=== PATIENT | male | born 1955 | race African-American/Black ===

== ENCOUNTER 2016-02-25 14:56 | Inpatient (IN) | payer OTHER ==
[2016-02-25 15:38] VITALS: BMI 25.0
--- NOTE | 2016-02-25 17:59 | HP ---
COWS - Scale Resting Pulse: 0= [place] 80 or Below Sweatin= Chills/Flushing Restless Observation: 3= Extraneous Movement Pupil Size: 0= Normal to Room Light Bone or Joint Aches: 2= Severe Diffuse Aches Runny Nose/ Eye Tearin= Nasal Congestion GI Upset > 30mins: 2= Nausea/Diarrhea Tremor Observation: 2= Slight Tremor Visible Yawning Observation: 0= None Anxiety or Irritability: 2=Irritable/Anxious Goose Flesh Skin: 3=Piloerection COWS Score: 16 CIWA Score - CIWA Score Nausea/Vomitin-Mild Nausea/No Vomiting Muscle Tremors: 4-Moderate,w/Arms Extend Anxiety: 4-Mod. Anxious/Guarded Agitation: 4-Moderately Restless Paroxysmal Sweats: 1-Minimal Palms Moist Orientation: 3-Disoriented Date>2 days Tacttile Disturbances: 0-None Auditory Disturbances: 0-None Visual Disturbances: 0-None Headache: 0-None Present CIWA-Ar Total Score: 17 Admission ROS S - HPI Chief Complaint: withdrawal sx Allergies/Adverse Reactions: Allergies Allergy/AdvReac Type Severity Reaction Status Date / Time No Known Allergies Allergy Verified 02/25/16 17:41 History of Present Illness: 60 years old male with long history of alcohol opiate nicotine dependence, chronic ankles [place] 500 mg po q6h x 7 days 02/24/16, liver of cirhosis since 1986, denies mental illness longest sobriety 13 years is admitted to detox Exam Limitations: No Limitations - Ebola screening Have you traveled outside of the country in the last 21 days: No (N) Have you had contact with anyone from an Ebola affected area: No Have you been sick,other than usual withdrawal symptoms: No Do you have a fever: No - Review of Systems Constitutional: Chills, Loss of Appetite, Changes in sleep, Unintentional Wgt. Loss EENT: reports: No Symptoms Reported Respiratory: reports: Cough Cardiac: reports: Chest Pain (1996 no treatment) GI: reports: Nausea, Poor Appetite, Poor Fluid Intake, Vomiting, Indigestion, Abdominal cramping : reports: No Symptoms Reported Musculoskeletal: reports: Back Pain, Joint Pain, Joint Swelling (ankles), Muscle Pain, Neck Pain Integumentary: reports: Change in Color (right planta), Dryness, Pruritus Neuro: reports: Tremors Endocrine: reports: No Symptoms Reported Hematology: reports: No Symptoms Reported Psychiatric: reports: Judgement Intact Other Systems: Reviewed and Negative Patient History - Patient Medical History Hx Anemia: No Hx Asthma: No Hx Chronic Obstructive Pulmonary Disease (COPD): No Hx Cancer: No Hx Cardiac Disorders: Yes (1996 no treatment) Hx Congestive Heart Failure: No Hx Hypertension: No Hx Hypercholesterolemia: No Hx Pacemaker: No HX Cerebrovascular Accident: No Hx Seizures: No Hx Dementia: No Hx Diabetes: No Hx Gastrointestinal Disorders: Yes (gerd) Hx Liver Disease: Yes (cirrohosis of liver 1986; no treatment) Hx Genitourinary Disorders: No Hx Sexually Transmitted Disorders: No Hx Renal Disease (ESRD): No Hx Thyroid Disease: No Hx Human Immunodeficiency Virus (HIV): No Hx Hepatitis C: Yes Hx Depression: No Hx Suicide Attempt: No (denies) Hx Bipolar Disorder: No Hx Schizophrenia: No - Patient Surgical History Past Surgical History: Yes Hx Neurologic Surgery: No Hx Cataract Extraction: No Hx Cardiac Surgery: No Hx Lung Surgery: No Hx Breast Surgery: No Hx Breast Biopsy: No Hx Abdominal Surgery: No Hx Appendectomy: No Hx Cholecystectomy: No Hx Genitourinary Surgery: No Hx Orthopedic Surgery: No Other Surgical History: tonsilectomy 14 years old , left ingrunal 15 years old Anesthesia Reaction: No - PPD History Previous Implant?: Yes Documented Results: Negative w/proof Implanted On Prior R Admission?: Yes Date: 12/13/15 PPD to be Administered?: No - Smoking Cessation Smoking history: Current every day smoker Have you smoked in the past 12 months: Yes Aproximately how many cigarettes per day: 20 Cigars Per Day: 0 Hx Chewing Tobacco Use: No Initiated information on smoking cessation: Yes 'Breaking Loose' booklet given: 02/25/16 - Substance & Tx. History Hx Alcohol Use: Yes Hx Substance Use: Yes Substance Use Type: Alcohol, Opiates Hx Substance Use Treatment: Yes - Substances Abused Alcohol Route: Oral Frequency: Daily Amount used: LIQUOR- 1 PINT, BEER- 1 SIX PACK Age of first use: 11 Date of Last Use: 02/25/16 Heroin Route: Inhalation Frequency: Daily Amount used: 2 BAGS Age of first use: 35 Date of Last Use: 02/25/16 Family Disease History - Family Disease History Family Disease History: CA: Father, Mother Admission Physical Exam [facility] - Vital Signs Vital Signs: Vital Signs - 24 hr 02/25/16 15:36 Temperature 96.1 F L Pulse Rate 79 Respiratory 18 Rate Blood Pressure 121/66 - Physical General Appearance: Yes: Appropriately Dressed, Mild Distress, Alcohol on Breath , Thin, Tremorous, Irritable, Sweating, Anxious HEENTM: Yes: Hearing grossly Normal, Normal ENT Inspection, Normocephalic, Normal Voice Respiratory: Yes: Chest Non-Tender, Lungs Clear, Normal Breath Sounds, No Respiratory Distress, No Accessory Muscle Use Neck: Yes: Supple, Trachea in good position Breast: Yes: Breasts Symetrical Cardiology: Yes: Regular Rhythm, Regular Rate, S1, S2 Abdominal: Yes: Non Tender, Soft Genitourinary: Yes: Within Normal Limits Back: Yes: Normal Inspection Musculoskeletal: Yes: Gait Steady, Joint swelling (ankles), Muscle Pain (feet) Extremities: Yes: Non-Tender, Tremors, Swelling (lower extremities) Neurological: Yes: Alert, Normal Mood/Affect, Normal Response Integumentary: Yes: Warm, Moist, Pitting Edema (both ankles), Track Thacker (old) Lymphatic: Yes: Within Normal Limits - Diagnostic (1) Alcohol dependence with uncomplicated withdrawal Current Visit: Yes Status: Acute (2) Opioid dependence with withdrawal Current Visit: Yes Status: Acute (3) Arthritis Current Visit: Yes Status: Chronic (4) Nicotine dependence Current Visit: Yes Status: Acute Qualifiers: Nicotine product type: cigarettes Substance use status: uncomplicated Qualified Code(s): F17.210 - Nicotine dependence, cigarettes, uncomplicated (5) Hepatitis C antibody test positive Current Visit: Yes Status: Chronic (6) GERD (gastroesophageal reflux disease) Current Visit: Yes Status: Acute Qualifiers: Esophagitis presence: without esophagitis Qualified Code(s): K21.9 - Gastro-esophageal reflux disease without esophagitis (7) Weight loss Current Visit: Yes Status: Acute (8) Dry skin dermatitis Current Visit: Yes Status: Acute (9) Swollen ankles Current Visit: Yes Status: Chronic (10) Callus of foot Current Visit: Yes Status: Chronic (11) Alcoholic cirrhosis of liver Current Visit: Yes Status: Chronic Qualifiers: Ascites presence: without ascites Qualified Code(s): K70.30 - Alcoholic cirrhosis of liver without ascites Cleared for Admission [facility] - Detox or Rehab [facility] Level of Care: Medically Managed Detox Regimen/Protocol: Methadone/Librium [facility] Breath Alcohol Content Breath Alcohol Content: 0.062 Urine Drug Screen - Results Drug Screen Negative: No Urine Drug Screen Results: OPI-Opiates
[2016-02-25] MEDS ORDERED: chlordiazePOXIDE HCL 25 MG CAPSULE PO PRN (18:05)
[2016-02-25] MEDS ORDERED: MAGNESIUM HYDROX 2400MG/30ML ORAL SUSPENSION 30 ML CUP PO PRN (18:05)
[2016-02-25] MEDS ORDERED: MAG HYDROX/AL HYDROX/SIMETH 30 ML UNIT-DOSE CUP PO PRN (18:05)
[2016-02-25] MEDS ORDERED: LOPERAMIDE HCL 2 MG CAPSULE PO PRN (18:05)
[2016-02-25] MEDS ORDERED: NICOTINE POLACRILEX 2 MG GUM BC PRN (18:05)
[2016-02-25] MEDS ORDERED: guaiFENesin/D-METHORPHAN HB 10 ML UNIT-DOSE CUPS PO PRN (18:05)
[2016-02-25] MEDS ORDERED: MAGNESIUM CITRATE 300 ML BOTTLE PO PRN (18:05)
[2016-02-25] MEDS ORDERED: MENTHOL/PHENOL 1 EACH UD MM PRN (18:05)
[2016-02-25] MEDS ORDERED: diphenhydrAMINE HCL 50 MG CAPSULE PO PRN (18:05)
[2016-02-25] MEDS ORDERED: P-EPHED 60MG/TRIPROLIDI 2.5MG TABLET PO PRN (18:05)
[2016-02-25] MEDS ORDERED: COLLOIDAL OATMEAL 1 BAR EACH TP PRN (18:12)
[2016-02-25] MEDS ORDERED: METHADONE HCL 10 MG TABLET (FOR DETOX USE ONLY) PO ONE ×2 (18:30→23:00)
[2016-02-25] MEDS ORDERED: chlordiazePOXIDE HCL 25 MG CAPSULE PO ONE (18:30)
[2016-02-25] MEDS: IBUPROFEN 400 MG TABLET (FP) PO PRN (20:01)
[2016-02-25] MEDS: RANITIDINE HCL 150 MG TABLET (FP) PO SCH (22:20)
[2016-02-25] MEDS: MINERAL OIL/PETROLAT/WATER TOPICAL CREAM 113 GM JAR TP SCH (22:20)
[2016-02-25] MEDS: THIAMINE HCL 100 MG TABLET (FP) PO SCH (22:20)
[2016-02-25] MEDS: chlordiazePOXIDE HCL 25 MG CAPSULE PO SCH (22:20)
[2016-02-26] MEDS ORDERED: CEPHALEXIN 250 MG/5 ML ORAL SUSPENSION PO SCH ×2
[2016-02-26] MEDS: chlordiazePOXIDE HCL 25 MG CAPSULE PO SCH ×4 (05:33→22:12)
[2016-02-26] MEDS ORDERED: METHADONE HCL 10 MG TABLET (FOR DETOX USE ONLY) PO SCH (10:00)
[2016-02-26 10:27] LABS: MCH 31.9 pg (25.7-33.7); MCHC 33.2 g/dl (32.0-35.9); MEAN CELL VOLUME 96.1 fl (80-96); MEAN PLT VOLUME 8.8 fl (7.5-11.1); RDW 12.4 % (11.9-15.9); WHITE BLOOD COUNT 4.6 K/mm3 (4.0-10.0)
[2016-02-26] MEDS: NICOTINE 21 MG/24 HOURS TOPICAL PATCH TD SCH (10:38)
[2016-02-26] MEDS: RANITIDINE HCL 150 MG TABLET (FP) PO SCH ×2 (10:38→22:12)
[2016-02-26] MEDS: PATIENT,S OWN MED:CEPHALEXIN MONOHYDRATE 500 MG CAPSULE (UD) PO SCH ×4 (10:38→22:12)
[2016-02-26] MEDS: PRENATAL VITAMINS W/ FOLIC ACID TABLET (FP) PO SCH (10:38)
[2016-02-26 10:43] LABS: INR 1.12 (0.82-1.09); PROTHROMBIN TIME (PATIENT) 12.3 SEC (9.98-11.88)
[2016-02-26 10:58] LABS: ALBUMIN 2.6 g/dl (3.4-5.0); ALK PHOS 185 U/L (45-117); ANION GAP 6 (8-16); BILIRUBIN,TOTAL 0.6 mg/dL (0.2-1.0); CALCIUM 8.2 mg/dL (8.5-10.1); CO2 27 mmol/L (21-32); CREATININE 0.8 mg/dL (0.7-1.3); GLUCOSE,RANDOM 115 mg/dL (74-106); SGOT/AST 144 U/L (15-37); SGPT/ALT 104 U/L (12-78); TOT PROT 5.9 g/dl (6.4-8.2)
--- NOTE | 2016-02-26 11:59 | PN ---
[facility] CIWA - CIWA Score Nausea/Vomitin-No Nausea/No Vomiting Muscle Tremors: 3 Anxiety: 4-Mod. Anxious/Guarded Agitation: 4-Moderately Restless Paroxysmal Sweats: 3 Orientation: 0-Oriented Tacttile Disturbances: 1-Very Mild Itch/Numbness Auditory Disturbances: 0-None Visual Disturbances: 0-None Headache: 0-None Present CIWA-Ar Total Score: 15 S COWS - Scale Resting Pulse: 0= [place] 80 or Below Sweatin=Flushed/Facial Moisture Restless Observation: 1= Difficult to Sit Still Pupil Size: 0= Normal to Room Light Bone or Joint Aches: 1= Mild Discomfort Runny Nose/ Eye Tearin= Runny Nose/Eyes GI Upset > 30mins: 2= Nausea/Diarrhea Tremor Observation of Outstretched Hands: 2= Slight Tremor Visible Yawning Observation: 1= 1-2x During Session Anxiety or Irritability: 2=Irritable/Anxious Goose Flesh Skin: 0=Smooth Skin COWS Score: 13 S Progress Note (SOAP) Subjective: ANXIETY,TREMORS,INTERRUPTED SLEEP,RESTLESS,SWEATING,MUSCLE ACHES Objective: 02/26/16 11:58 Vital Signs - 8 hr 02/26/16 02/26/16 06:20 09:22 Temperature 98 F 96.7 F L Pulse Rate 69 66 Respiratory 16 18 Rate Blood Pressure 98/60 110/66 Laboratory Last Values WBC 4.6 K/mm3 (4.0-10.0) D 02/26/16 06:30 RBC 3.88 M/mm3 (4.00-5.60) L 02/26/16 06:30 Hgb 12.4 GM/dL (11.7-16.9) 02/26/16 06:30 Hct 37.3 % (35.4-49) 02/26/16 06:30 MCV 96.1 fl (80-96) H 02/26/16 06:30 MCHC 33.2 g/dl (32.0-35.9) 02/26/16 06:30 RDW 12.4 % (11.9-15.9) 02/26/16 06:30 MPV 8.8 fl (7.5-11.1) 02/26/16 06:30 INR 1.12 (0.82-1.09) 02/26/16 06:30 Sodium 142 mmol/L (136-145) 02/26/16 06:30 Potassium 4.0 mmol/L (3.5-5.1) 02/26/16 06:30 Chloride 109 mmol/L (98-107) H 02/26/16 06:30 Carbon Dioxide 27 mmol/L (21-32) D 02/26/16 06:30 Anion Gap 6 (8-16) L 02/26/16 06:30 BUN 17 mg/dL (7-18) D 02/26/16 06:30 Creatinine 0.8 mg/dL (0.7-1.3) 02/26/16 06:30 Creat Clearance w eGFR > 60 (>60) 02/26/16 06:30 Random Glucose 115 mg/dL (74-106) H D 02/26/16 06:30 Calcium 8.2 mg/dL (8.5-10.1) L 02/26/16 06:30 Total Bilirubin 0.6 mg/dL (0.2-1.0) D 02/26/16 06:30 AST 144 U/L (15-37) H 02/26/16 06:30 ALT 104 U/L (12-78) H D 02/26/16 06:30 Alkaline Phosphatase 185 U/L (45-117) H 02/26/16 06:30 Ammonia 53.5 umol/L (11-32) H 02/26/16 06:30 Total Protein 5.9 g/dl (6.4-8.2) L D 02/26/16 06:30 Albumin 2.6 g/dl (3.4-5.0) L D 02/26/16 06:30 LABS NOTED,WE'LL REPEAT LIVER ENZYMES ON 02/28/16 Assessment: 02/26/16 11:59 WITHDRAWAL SX. Plan: CONTINUE DETOX
[2016-02-26 15:07] LABS: PLATELET ESTIMATE ADEQUATE (NORMAL)
--- NOTE | 2016-02-26 16:22 | EKG ---
Test Reason : Blood Pressure : / mmHG Vent. Rate : 073 BPM Atrial Rate : 073 BPM P-R Int : 160 ms QRS Dur : 082 ms QT Int : 390 ms P-R-T Axes : 071 075 069 degrees QTc Int : 429 ms NORMAL SINUS RHYTHM POSSIBLE LEFT ATRIAL ENLARGEMENT BORDERLINE ECG NO PREVIOUS ECGS AVAILABLE Confirmed by CHRIS DANIELSON, PRAVIN ([id number]) on 02/26/2016 4:21:33 PM Referred By: Confirmed By:PRAVIN PEREZ MD
[2016-02-26] MEDS: IBUPROFEN 400 MG TABLET (FP) PO PRN (17:47)
[2016-02-26 20:52] LABS: URINE APPEARANCE CLEAR; URINE BILIRUBIN NEGATIVE (NEGATIVE); URINE BLOOD NEGATIVE (NEGATIVE); URINE COLOR YELLOW; URINE GLUCOSE (UA) NEGATIVE (NEGATIVE); URINE KETONE NEGATIVE (NEGATIVE); URINE LEUK ESTERASE NEGATIVE (NEGATIVE); URINE NITRITE NEGATIVE (NEGATIVE); URINE PROTEIN NEGATIVE (NEGATIVE); URINE UROBILINOGEN 4.0 E.U/dl E.U./dl (0.2-1.0)
[2016-02-26] MEDS: THIAMINE HCL 100 MG TABLET (FP) PO SCH (22:12)
[2016-02-26] MEDS: MINERAL OIL/PETROLAT/WATER TOPICAL CREAM 113 GM JAR TP SCH (22:12)
[2016-02-27] MEDS: chlordiazePOXIDE HCL 25 MG CAPSULE PO SCH ×3 (05:47→17:38)
[2016-02-27] MEDS: METHADONE HCL 5 MG TABLET (FOR DETOX USE ONLY) PO SCH (10:42)
[2016-02-27] MEDS: PRENATAL VITAMINS W/ FOLIC ACID TABLET (FP) PO SCH (10:42)
[2016-02-27] MEDS: PATIENT,S OWN MED:CEPHALEXIN MONOHYDRATE 500 MG CAPSULE (UD) PO SCH ×4 (10:42→22:20)
[2016-02-27] MEDS: RANITIDINE HCL 150 MG TABLET (FP) PO SCH ×2 (10:42→22:20)
[2016-02-27] MEDS: NICOTINE 21 MG/24 HOURS TOPICAL PATCH TD SCH (10:43)
--- NOTE | 2016-02-27 15:50 | PN ---
[facility] CIWA - CIWA Score Nausea/Vomitin-No Nausea/No Vomiting Muscle Tremors: 3 Anxiety: 4-Mod. Anxious/Guarded Agitation: 4-Moderately Restless Paroxysmal Sweats: 3 Orientation: 0-Oriented Tacttile Disturbances: 1-Very Mild Itch/Numbness Auditory Disturbances: 0-None Visual Disturbances: 0-None Headache: 0-None Present CIWA-Ar Total Score: 15 [facility] COWS - Scale Resting Pulse: 1= [place] 81-100 Sweatin=Flushed/Facial Moisture Restless Observation: 1= Difficult to Sit Still Pupil Size: 0= Normal to Room Light Bone or Joint Aches: 2= Severe Diffuse Aches Runny Nose/ Eye Tearin= Runny Nose/Eyes GI Upset > 30mins: 2= Nausea/Diarrhea Tremor Observation of Outstretched Hands: 2= Slight Tremor Visible Yawning Observation: 1= 1-2x During Session Anxiety or Irritability: 2=Irritable/Anxious Goose Flesh Skin: 0=Smooth Skin COWS Score: 15 [facility] Progress Note (SOAP) Subjective: ANXIETY,TREMORS,SWEATING,INTERRUPTED SLEEP,RESTLESS Objective: 02/27/16 15:49 Vital Signs - 8 hr 02/27/16 09:56 Temperature 96.2 F L Pulse Rate 94 H Respiratory 18 Rate Blood Pressure 132/85 Laboratory Last Values WBC 4.6 K/mm3 (4.0-10.0) D 02/26/16 06:30 RBC 3.88 M/mm3 (4.00-5.60) L 02/26/16 06:30 Hgb 12.4 GM/dL (11.7-16.9) 02/26/16 06:30 Hct 37.3 % (35.4-49) 02/26/16 06:30 MCV 96.1 fl (80-96) H 02/26/16 06:30 MCHC 33.2 g/dl (32.0-35.9) 02/26/16 06:30 RDW 12.4 % (11.9-15.9) 02/26/16 06:30 Plt Count Not Reportable 02/26/16 06:30 MPV 8.8 fl (7.5-11.1) 02/26/16 06:30 Platelet Estimate Adequate (NORMAL) 02/26/16 06:30 Platelet Comment Marked plt clumping 02/26/16 06:30 INR 1.12 (0.82-1.09) 02/26/16 06:30 Sodium 142 mmol/L (136-145) 02/26/16 06:30 Potassium 4.0 mmol/L (3.5-5.1) 02/26/16 06:30 Chloride 109 mmol/L (98-107) H 02/26/16 06:30 Carbon Dioxide 27 mmol/L (21-32) D 02/26/16 06:30 Anion Gap 6 (8-16) L 02/26/16 06:30 BUN 17 mg/dL (7-18) D 02/26/16 06:30 Creatinine 0.8 mg/dL (0.7-1.3) 02/26/16 06:30 Creat Clearance w eGFR > 60 (>60) 02/26/16 06:30 Random Glucose 115 mg/dL (74-106) H D 02/26/16 06:30 Calcium 8.2 mg/dL (8.5-10.1) L 02/26/16 06:30 Total Bilirubin 0.6 mg/dL (0.2-1.0) D 02/26/16 06:30 AST 144 U/L (15-37) H 02/26/16 06:30 ALT 104 U/L (12-78) H D 02/26/16 06:30 Alkaline Phosphatase 185 U/L (45-117) H 02/26/16 06:30 Ammonia 53.5 umol/L (11-32) H 02/26/16 06:30 Total Protein 5.9 g/dl (6.4-8.2) L D 02/26/16 06:30 Albumin 2.6 g/dl (3.4-5.0) L D 02/26/16 06:30 Urine Color Yellow 02/26/16 15:18 Urine Appearance Clear 02/26/16 15:18 Urine pH 6.0 (5.0-8.0) 02/26/16 15:18 Ur Specific [place] 1.017 (1.001-1.035) 02/26/16 15:18 Urine Protein Negative (NEGATIVE) 02/26/16 15:18 Urine Glucose (UA) Negative (NEGATIVE) 02/26/16 15:18 Urine Ketones Negative (NEGATIVE) 02/26/16 15:18 Urine Blood Negative (NEGATIVE) 02/26/16 15:18 Urine Nitrite Negative (NEGATIVE) 02/26/16 15:18 Urine Bilirubin Negative (NEGATIVE) 02/26/16 15:18 Urine Urobilinogen 4.0 e.u/dl E.U./dl (0.2-1.0) 02/26/16 15:18 Ur Leukocyte Esterase Negative (NEGATIVE) 02/26/16 15:18 RPR Titer Nonreactive (NONREACTIVE) 02/26/16 06:30 LABS NOTED Assessment: 02/27/16 15:50 WITHDRAWAL SX. Plan: CONTINUE DETOX
[2016-02-27] MEDS: THIAMINE HCL 100 MG TABLET (FP) PO SCH (22:20)
[2016-02-27] MEDS: chlordiazePOXIDE 5 MG CAPSULE PO SCH (22:22)
[2016-02-27] MEDS: MINERAL OIL/PETROLAT/WATER TOPICAL CREAM 113 GM JAR TP SCH (22:23)
[2016-02-28] MEDS: chlordiazePOXIDE 5 MG CAPSULE PO SCH ×2 (05:47→10:47)
[2016-02-28 06:19] VITALS: BP 100/69; PULSE 77; TEMP 97.5
[2016-02-28] MEDS: PATIENT,S OWN MED:CEPHALEXIN MONOHYDRATE 500 MG CAPSULE (UD) PO SCH (09:24)
[2016-02-28] MEDS: RANITIDINE HCL 150 MG TABLET (FP) PO SCH (09:24)
[2016-02-28] MEDS: NICOTINE 21 MG/24 HOURS TOPICAL PATCH TD SCH (09:24)
[2016-02-28] MEDS: PRENATAL VITAMINS W/ FOLIC ACID TABLET (FP) PO SCH (09:24)
[2016-02-28] MEDS: METHADONE HCL 5 MG TABLET (FOR DETOX USE ONLY) PO SCH (09:24)
--- NOTE | 2016-02-28 10:38 | DS ---
[facility] Detox Discharge Summary Admission Date: 02/25/16 Discharge Date: 02/28/16 - History Present History: Alcohol Dependence Pertinent Past History: GERD HEP C - Physical Exam Results Vital Signs: Vital Signs Temperature 97.5 F L 02/28/16 06:18 Pulse Rate 77 02/28/16 06:18 Respiratory Rate 16 02/28/16 06:18 Blood Pressure 100/69 02/28/16 06:18 O2 Sat by Pulse Oximetry (%) Pertinent Admission Physical Exam Findings: WITHDRAWAL SX. Laboratory Tests 02/26/16 02/26/16 02/26/16 06:30 06:30 06:30 WBC 4.6 D RBC 3.88 L Hgb 12.4 Hct 37.3 MCV 96.1 H MCHC 33.2 RDW 12.4 Plt Count Not Reportable MPV 8.8 Platelet Estimate Adequate Platelet Comment Marked plt clumping INR Sodium 142 Potassium 4.0 Chloride 109 H Carbon Dioxide 27 D Anion Gap 6 L BUN 17 D Creatinine 0.8 Creat Clearance w eGFR > 60 Random Glucose 115 H D Calcium 8.2 L Total Bilirubin 0.6 D AST 144 H ALT 104 H D Alkaline Phosphatase 185 H Ammonia 53.5 H Total Protein 5.9 L D Albumin 2.6 L D Urine Color Urine Appearance Urine pH Ur Specific [place] Urine Protein Urine Glucose (UA) Urine Ketones Urine Blood Urine Nitrite Urine Bilirubin Urine Urobilinogen Ur Leukocyte Esterase RPR Titer 02/26/16 02/26/16 02/26/16 06:30 06:30 15:18 WBC RBC Hgb Hct MCV MCHC RDW Plt Count MPV Platelet Estimate Platelet Comment INR 1.12 Sodium Potassium Chloride Carbon Dioxide Anion Gap BUN Creatinine Creat Clearance w eGFR Random Glucose Calcium Total Bilirubin AST ALT Alkaline Phosphatase Ammonia Total Protein Albumin Urine Color Yellow Urine Appearance Clear Urine pH 6.0 Ur Specific [place] 1.017 Urine Protein Negative Urine Glucose (UA) Negative Urine Ketones Negative Urine Blood Negative Urine Nitrite Negative Urine Bilirubin Negative Urine Urobilinogen 4.0 e.u/dl Ur Leukocyte Esterase Negative RPR Titer Nonreactive LABS NOTED - Medication Discharge Medications: Ambulatory Orders Cephalexin [Keflex] 500 mg PO QID 02/25/16 - Diagnosis (1) Alcohol dependence with uncomplicated withdrawal Current Visit: Yes Status: Acute (2) GERD (gastroesophageal reflux disease) Current Visit: Yes Status: Acute Qualifiers: Esophagitis presence: without esophagitis Qualified Code(s): K21.9 - Gastro-esophageal reflux disease without esophagitis (3) Nicotine dependence Current Visit: Yes Status: Acute Qualifiers: Nicotine product type: cigarettes Substance use status: uncomplicated Qualified Code(s): F17.210 - Nicotine dependence, cigarettes, uncomplicated (4) Opioid dependence with withdrawal Current Visit: Yes Status: Acute (5) Hepatitis C antibody test positive Current Visit: Yes Status: Chronic - AMA Did Patient Leave Against Medical Advice: Yes
[2016-02-28] MEDS ORDERED: chlordiazePOXIDE HCL 10 MG CAPSULE PO SCH (23:00)
[2016-02-29] MEDS ORDERED: METHADONE HCL 10 MG TABLET (FOR DETOX USE ONLY) PO SCH (10:00)
[2016-03-01] MEDS ORDERED: METHADONE HCL 5 MG TABLET (FOR DETOX USE ONLY) PO SCH (06:00)
== END 2016-02-28 09:40 | disposition left against medical advice (07) | DRG 770 ==
LOC: YASAS 14:56 → Y3N 17:46
PROVIDERS: ADMIT Internal Medicine; ATTEND Internal Medicine
PROC: HZ2ZZZZ Detoxification Services for Substance Abuse Treatment (ICD-10-PCS; principal; 2016-02-25)
DX: F11.23 Opioid dependence with withdrawal (principal); F10.230 Alcohol dependence with withdrawal, uncomplicated; F17.210 Nicotine dependence, cigarettes, uncomplicated; K21.9 Gastro-esophageal reflux disease without esophagitis; B18.2 Chronic viral hepatitis C; L85.3 Xerosis cutis; K70.30 Alcoholic cirrhosis of liver without ascites; L03.116 Cellulitis of left lower limb; M25.472 Effusion, left ankle; M25.471 Effusion, right ankle; Z87.898 Personal history of other specified conditions
CPT/HCPCS: 36415; 80053; 81003; 82140; 85027; 85610; 86593; 93005; 93010

== ENCOUNTER 2016-09-23 14:08 | Inpatient (IN) | payer OTHER ==
[2016-09-23 15:28] VITALS: BMI 24.1
--- NOTE | 2016-09-23 16:35 | HP ---
COWS - Scale Resting Pulse: 1= [place] 81-100 Sweatin= Chills/Flushing Restless Observation: 3= Extraneous Movement Pupil Size: 0= Normal to Room Light Bone or Joint Aches: 2= Severe Diffuse Aches Runny Nose/ Eye Tearin= Runny Nose/Eyes GI Upset > 30mins: 2= Nausea/Diarrhea Tremor Observation: 2= Slight Tremor Visible Yawning Observation: 0= None Anxiety or Irritability: 2=Irritable/Anxious Goose Flesh Skin: 0=Smooth Skin COWS Score: 15 CIWA Score - CIWA Score Nausea/Vomitin-Mild Nausea/No Vomiting Muscle Tremors: 4-Moderate,w/Arms Extend Anxiety: 4-Mod. Anxious/Guarded Agitation: 4-Moderately Restless Paroxysmal Sweats: 1-Minimal Palms Moist Orientation: 0-Oriented Tacttile Disturbances: 0-None Auditory Disturbances: 0-None Visual Disturbances: 0-None Headache: 1-Very Mild CIWA-Ar Total Score: 15 Admission ROS [facility] - HPI Chief Complaint: WITHDRAWAL SX Allergies/Adverse Reactions: Allergies Allergy/AdvReac Type Severity Reaction Status Date / Time No Known Allergies Allergy Verified 02/25/16 17:41 History of Present Illness: 61 YEARS OLD MALE WITH LONG HISTORY OF ALCOHOL, OPIUM, AND NICOTINE DEPENDENCE, DENIES MEDICAL ISSUE HAS DEPRESSION IS ADMITTED TO DETOX Exam Limitations: No Limitations - Ebola screening Have you traveled outside of the country in the last 21 days: No Have you had contact with anyone from an Ebola affected area: No Have you been sick,other than usual withdrawal symptoms: No Do you have a fever: No - Review of Systems Constitutional: Chills, Loss of Appetite, Changes in sleep, Unintentional Wgt. Loss, Unexplained wgt Loss EENT: reports: Blurred Vision (NEED EYE GLASSES) Respiratory: reports: Productive cough (YELLOWISH) Cardiac: reports: No Symptoms Reported GI: reports: Nausea, Poor Appetite, Poor Fluid Intake, Abdominal cramping : reports: No Symptoms Reported Musculoskeletal: reports: Back Pain, Joint Pain, Muscle Pain, Neck Pain Integumentary: reports: No Symptoms Reported Neuro: reports: Tremors Endocrine: reports: No Symptoms Reported Hematology: reports: No Symptoms Reported Psychiatric: reports: Judgement Intact, Orientated x3, Depressed Other Systems: Reviewed and Negative Patient History - Patient Medical History Hx Anemia: No Hx Asthma: No Hx Chronic Obstructive Pulmonary Disease (COPD): No Hx Cancer: No Hx Cardiac Disorders: Yes (1996 no treatment) Hx Congestive Heart Failure: No Hx Hypertension: No Hx Hypercholesterolemia: No Hx Pacemaker: No HX Cerebrovascular Accident: No Hx Seizures: No Hx Dementia: No Hx Diabetes: No Hx Gastrointestinal Disorders: No (gerd) Hx Liver Disease: Yes (cirrohosis of liver 1987; no treatment) Hx Genitourinary Disorders: No Hx Sexually Transmitted Disorders: No Hx Renal Disease (ESRD): No Hx Thyroid Disease: No Hx Human Immunodeficiency Virus (HIV): No Hx Hepatitis C: Yes Hx Depression: Yes Hx Suicide Attempt: No (denies) Hx Bipolar Disorder: No Hx Schizophrenia: No - Patient Surgical History Past Surgical History: Yes Hx Neurologic Surgery: No Hx Cataract Extraction: No Hx Cardiac Surgery: No Hx Lung Surgery: No Hx Breast Surgery: No Hx Breast Biopsy: No Hx Abdominal Surgery: No Hx Appendectomy: No Hx Cholecystectomy: No Hx Genitourinary Surgery: No Hx Orthopedic Surgery: No Other Surgical History: tonsilectomy 14 years old , left ingrunal 15 years old Anesthesia Reaction: No - PPD History Previous Implant?: Yes Documented Results: Negative w/proof Implanted On Prior R Admission?: Yes Date: 12/13/15 PPD to be Administered?: No - Smoking Cessation Smoking history: Current every day smoker Have you smoked in the past 12 months: Yes Aproximately how many cigarettes per day: 20 Cigars Per Day: 0 Hx Chewing Tobacco Use: No Initiated information on smoking cessation: Yes 'Breaking Loose' booklet given: 09/23/16 - Substance & Tx. History Hx Alcohol Use: Yes Hx Substance Use: Yes Substance Use Type: Alcohol, Heroin Hx Substance Use Treatment: Yes (02/24-02/28/16 [facility] - Substances Abused Alcohol Route: Oral Frequency: Daily Amount used: [id number] Age of first use: 11 Date of Last Use: 09/23/16 Heroin Route: Inhalation Frequency: Daily Amount used: 5 BAGS Age of first use: 35 Date of Last Use: 09/22/16 Family Disease History - Family Disease History Family Disease History: Heart Disease: Son ( ), [place]: Father (), Mother (), Other: Father, Son Admission Physical Exam [facility] - Vital Signs Vital Signs: Vital Signs - 24 hr 09/23/16 15:26 Temperature 97.8 F Pulse Rate 97 H Respiratory 16 Rate Blood Pressure 100/76 - Physical General Appearance: Yes: Appropriately Dressed, Mild Distress, Alcohol on Breath , Thin, Tremorous, Irritable, Sweating, Anxious HEENTM: Yes: Hearing grossly Normal, Normal ENT Inspection, Normocephalic, Normal Voice Respiratory: Yes: Chest Non-Tender, Lungs Clear, Normal Breath Sounds, No Respiratory Distress, No Accessory Muscle Use Neck: Yes: Supple, Trachea in good position Breast: Yes: Breast Exam Deferred Cardiology: Yes: Regular Rhythm, S1, S2, Tachycardia Abdominal: Yes: Non Tender, Soft Genitourinary: Yes: Within Normal Limits Back: Yes: Normal Inspection Musculoskeletal: Yes: full range of Motion, Gait Steady, Back pain, Muscle Pain Extremities: Yes: Normal Range of Motion, Non-Tender, Tremors Neurological: Yes: Fully Oriented, Alert, Motor Strength 5/5, Normal Response, Depressed Affect Integumentary: Yes: Warm Lymphatic: Yes: Within Normal Limits - Diagnostic (1) Alcohol dependence with uncomplicated withdrawal Current Visit: Yes Status: Acute (2) Opioid dependence with withdrawal Current Visit: Yes Status: Acute (3) Weight loss Current Visit: Yes Status: Acute Cleared for Admission [facility] - Detox or Rehab [facility] Level of Care: Medically Managed Detox Regimen/Protocol: Methadone/Librium [facility] Breath Alcohol Content Breath Alcohol Content: 0.099 Urine Drug Screen - Results Drug Screen Negative: No Urine Drug Screen Results: OPI-Opiates, TCA-Tricyclic Antidepress
[2016-09-23] MEDS ORDERED: NICOTINE 21 MG/24 HOURS TOPICAL PATCH TD PRN (16:45)
[2016-09-23] MEDS ORDERED: MAGNESIUM HYDROX 2400MG/30ML ORAL SUSPENSION 30 ML CUP PO PRN (16:45)
[2016-09-23] MEDS ORDERED: ACETAMINOPHEN 325 MG TABLET (FP) PO PRN (16:45)
[2016-09-23] MEDS ORDERED: guaiFENesin/D-METHORPHAN HB 10 ML UNIT-DOSE CUPS PO PRN (16:45)
[2016-09-23] MEDS ORDERED: NICOTINE POLACRILEX 4 MG GUM BC PRN (16:45)
[2016-09-23] MEDS ORDERED: MAG HYDROX/AL HYDROX/SIMETH 30 ML UNIT-DOSE CUP PO PRN (16:45)
[2016-09-23] MEDS ORDERED: chlordiazePOXIDE HCL 25 MG CAPSULE PO PRN (16:45)
[2016-09-23] MEDS ORDERED: P-EPHED 60MG/TRIPROLIDI 2.5MG TABLET PO PRN (16:45)
[2016-09-23] MEDS ORDERED: MENTHOL/PHENOL 1 EACH UD MM PRN (16:45)
[2016-09-23] MEDS ORDERED: MAGNESIUM CITRATE 300 ML BOTTLE PO PRN (16:45)
[2016-09-23] MEDS ORDERED: METHADONE HCL 10 MG TABLET (FOR DETOX USE ONLY) PO ONE ×2 (17:45→23:00)
[2016-09-23] MEDS: MINERAL OIL/PETROLAT/WATER TOPICAL CREAM 113 GM JAR TP SCH (22:52)
[2016-09-23] MEDS: THIAMINE HCL 100 MG TABLET (FP) PO SCH (22:52)
[2016-09-23] MEDS: chlordiazePOXIDE HCL 25 MG CAPSULE PO SCH (22:53)
[2016-09-23 23:27] LABS: URINE APPEARANCE CLEAR; URINE BILIRUBIN NEGATIVE (NEGATIVE); URINE BLOOD NEGATIVE (NEGATIVE); URINE COLOR YELLOW; URINE GLUCOSE (UA) NEGATIVE (NEGATIVE); URINE KETONE NEGATIVE (NEGATIVE); URINE LEUK ESTERASE NEGATIVE (NEGATIVE); URINE NITRITE NEGATIVE (NEGATIVE); URINE PROTEIN NEGATIVE (NEGATIVE); URINE UROBILINOGEN NEGATIVE mg/dL (0.2-1.0)
[2016-09-24] MEDS: chlordiazePOXIDE HCL 25 MG CAPSULE PO SCH ×4 (05:57→22:45)
[2016-09-24] MEDS: LOPERAMIDE HCL 2 MG CAPSULE PO PRN (05:58)
--- NOTE | 2016-09-24 09:04 | CONSULT ---
[facility] Psychiatric Consult - Data Date of interview: 09/24/16 Admission source: [facility] Identifying data: This is 61 years old male with no psychiatric hospiytalization history intoxicated with: Alcohol, Heroin and Nicotine Substance Abuse History: - Smoking Cessation. Smoking history: Current every day smoker. Have you smoked in the past 12 months: Yes. Aproximately how many cigarettes per day: 20. Cigars Per Day: 0. Hx Chewing Tobacco Use: No. Initiated information on smoking cessation: Yes. 'Breaking Loose' booklet given : 09/23/16. - Substance & Tx. History. Hx Alcohol Use: Yes. Hx Substance Use : Yes. Substance Use Type: Alcohol, Heroin. Hx Substance Use Treatment: Yes (-02/28/16 [facility]). - Substances Abused. Alcohol. Route: Oral. Frequency: Daily. Amount used: [id number]. Age of first use: 11. Date of Last Use: 09/23/16. Heroin. Route: Inhalation. Frequency: Daily. Amount used: 5 BAGS. Age of first use: 35. Date of Last Use: 09/22/16 Medical History: Weight loss history, GERD, Arthritis history, HepC+ Psychiatric History: PATIENT REPORTWS NO PAST PSYCHIATRIC HISTORY, NO MEDICATIONS TRAKING PRIOR TO ADMISSION Physical/Sexual Abuse/Trauma History: Denies Additional Comment: Observation. Detox Unit Care Protocol Mental Status Exam - Mental Status Exam Alert and Oriented to: Person Cognitive Function: Fair Patient Appearance: Unkempt Mood: Sad Affect: Flat Patient Behavior: Sedated Speech Pattern: Delayed Voice Loudness: Mildly Soft/Quiet Thought Process: Circumstantial Thought Disorder: Being Controlled Hallucinations: Denies Suicidal Ideation: Denies Homicidal Ideation: Denies Insight/Judgement: Fair Sleep: Difficulty falling asleep Appetite: Weight loss Muscle strength/Tone: Mild Hypotonicity Gait/Station: Shuffling Additional Comments: Observation. Detox Unit Care Protocol Psychiatric Findings - Problem List ([place] 1, 2,3) (1) Alcohol dependence with uncomplicated withdrawal Current Visit: Yes Status: Acute (2) Opioid dependence with withdrawal Current Visit: Yes Status: Acute (3) Nicotine dependence Current Visit: No Status: Acute Qualifiers: Nicotine product type: cigarettes Substance use status: uncomplicated Qualified Code(s): F17.210 - Nicotine dependence, cigarettes, uncomplicated (4) Drug-induced mood disorder Current Visit: Yes Status: Suspected - Initial Treatment Plan Initial Treatment Plan: Observation. Detox Unit Care Protocol
[2016-09-24] MEDS ORDERED: METHADONE HCL 10 MG TABLET (FOR DETOX USE ONLY) PO SCH (10:00)
[2016-09-24 10:18] LABS: MCH 31.4 pg (25.7-33.7); MCHC 32.7 g/dl (32.0-35.9); MEAN CELL VOLUME 95.9 fl (80-96); MEAN PLT VOLUME 8.2 fl (7.5-11.1); RDW 12.2 % (11.9-15.9); WHITE BLOOD COUNT 7.2 K/mm3 (4.0-10.0)
[2016-09-24 10:34] LABS: ALBUMIN 2.9 g/dl (3.4-5.0); ANION GAP 8 (8-16); CALCIUM 8.8 mg/dL (8.5-10.1); CO2 26 mmol/L (21-32); CREATININE 0.7 mg/dL (0.7-1.3); GLUCOSE,RANDOM 101 mg/dL (74-106); SGOT/AST 46 U/L (15-37); SGPT/ALT 37 U/L (12-78)
[2016-09-24 10:36] LABS: ALK PHOS 162 U/L (45-117); BILIRUBIN,TOTAL 1.1 mg/dL (0.2-1.0); TOT PROT 6.9 g/dl (6.4-8.2)
[2016-09-24] MEDS: PRENATAL VITAMINS W/ FOLIC ACID TABLET (FP) PO SCH (10:48)
--- NOTE | 2016-09-24 11:37 | PN ---
[facility] CIWA - CIWA Score Nausea/Vomitin Muscle Tremors: 4-Moderate,w/Arms Extend Anxiety: 3 Agitation: 0-Normal Activity Paroxysmal Sweats: 3 Orientation: 0-Oriented Tacttile Disturbances: 2-Mild Itch/Numbness/Burn Auditory Disturbances: 2-Mild Harshness/Frighten Visual Disturbances: 2-Mild Sensitivity Headache: 0-None Present CIWA-Ar Total Score: 18 BHS COWS - Scale Resting Pulse: 1= [place] 81-100 Sweatin= Chills/Flushing Restless Observation: 0= Sits Still Pupil Size: 0= Normal to Room Light Bone or Joint Aches: 2= Severe Diffuse Aches Runny Nose/ Eye Tearin= Runny Nose/Eyes GI Upset > 30mins: 2= Nausea/Diarrhea Tremor Observation of Outstretched Hands: 2= Slight Tremor Visible Yawning Observation: 1= 1-2x During Session Anxiety or Irritability: 2=Irritable/Anxious Goose Flesh Skin: 3=Piloerection COWS Score: 16 S Progress Note (SOAP) Subjective: Tremors, Diarrhea, Interrupted sleep, Body Aches, Sweating. Objective: PT. A & O X 3. NO ACUTE DISTRESS. PT. DENIES CHEST PAIN. 09/24/16 11:34 Vital Signs Temperature 97.3 F L 09/24/16 09:46 Pulse Rate 82 09/24/16 09:46 Respiratory Rate 18 09/24/16 09:46 Blood Pressure 120/78 09/24/16 09:46 O2 Sat by Pulse Oximetry (%) Laboratory Tests 09/23/16 09/24/16 09/24/16 17:04 07:00 07:00 WBC 7.2 D RBC 4.41 Hgb 13.8 D Hct 42.3 MCV 95.9 MCH 31.4 MCHC 32.7 RDW 12.2 MPV 8.2 Sodium 138 Potassium 4.0 Chloride 104 Carbon Dioxide 26 Anion Gap 8 BUN 8 D Creatinine 0.7 Creat Clearance w eGFR > 60 Random Glucose 101 Calcium 8.8 Total Bilirubin 1.1 H D AST 46 H D ALT 37 D Alkaline Phosphatase 162 H Total Protein 6.9 Albumin 2.9 L Urine Color Yellow Urine Appearance Clear Urine pH 6.0 Urine Protein Negative Urine Glucose (UA) Negative Urine Ketones Negative Urine Blood Negative Urine Nitrite Negative Urine Bilirubin Negative Urine Urobilinogen Negative Ur Leukocyte Esterase Negative LABS NOTED. PLATELET, RPR RESULTS PENDING. 09/24/16 11:35 Assessment: 09/24/16 11:35 WITHDRAWAL SYMPTOMS. Plan: CONTINUE DETOX. PRN IMMODIUM FOR DIARRHEA. HEPATIC FUNCTION PANEL ON 09/26/2016 FOR ABNORMAL ADMISSION HEPATIC LAB VALUES.
[2016-09-24 12:40] LABS: PLATELET ESTIMATE ADEQUATE (NORMAL)
[2016-09-24 12:41] LABS: PLATELET COMMENT2 UNABLE TO ENUMERATE
[2016-09-24] MEDS: IBUPROFEN 400 MG TABLET (FP) PO PRN (15:57)
--- NOTE | 2016-09-24 20:01 | EKG ---
Test Reason : Blood Pressure : / mmHG Vent. Rate : 088 BPM Atrial Rate : 088 BPM P-R Int : 206 ms QRS Dur : 090 ms QT Int : 372 ms P-R-T Axes : 079 076 066 degrees QTc Int : 450 ms NORMAL SINUS RHYTHM POSSIBLE LEFT ATRIAL ENLARGEMENT LEFT VENTRICULAR HYPERTROPHY ABNORMAL ECG WHEN COMPARED WITH ECG OF 25-FEB-2016 20:07, NO SIGNIFICANT CHANGE WAS FOUND Confirmed by PAULINE SPAULDING MD ([id number]) on 09/24/2016 8:01:23 PM Referred By: Calvin Marinelli Confirmed By:PAULINE SPAULDING MD
[2016-09-24] MEDS: THIAMINE HCL 100 MG TABLET (FP) PO SCH (22:45)
[2016-09-24] MEDS: MINERAL OIL/PETROLAT/WATER TOPICAL CREAM 113 GM JAR TP SCH (22:45)
[2016-09-24] MEDS: diphenhydrAMINE HCL 50 MG CAPSULE PO PRN (22:46)
[2016-09-25] MEDS: chlordiazePOXIDE HCL 25 MG CAPSULE PO SCH ×3 (05:39→17:25)
[2016-09-25] MEDS: METHADONE HCL 5 MG TABLET (FOR DETOX USE ONLY) PO SCH (10:58)
[2016-09-25] MEDS: PRENATAL VITAMINS W/ FOLIC ACID TABLET (FP) PO SCH (10:58)
[2016-09-25] MEDS: NICOTINE 21 MG/24 HOURS TOPICAL PATCH TD SCH (10:59)
--- NOTE | 2016-09-25 12:30 | PN ---
S CIWA - CIWA Score Nausea/Vomitin Muscle Tremors: 4-Moderate,w/Arms Extend Anxiety: 3 Agitation: 4-Moderately Restless Paroxysmal Sweats: 3 Orientation: 0-Oriented Tacttile Disturbances: 1-Very Mild Itch/Numbness Auditory Disturbances: 0-None Visual Disturbances: 0-None Headache: 0-None Present CIWA-Ar Total Score: 18 BHS COWS - Scale Resting Pulse: 0= SD 80 or Below Sweatin= Chills/Flushing Restless Observation: 1= Difficult to Sit Still Pupil Size: 1= Pupils >than Normal Bone or Joint Aches: 1= Mild Discomfort Runny Nose/ Eye Tearin= Nasal Congestion GI Upset > 30mins: 2= Nausea/Diarrhea Tremor Observation of Outstretched Hands: 2= Slight Tremor Visible Yawning Observation: 1= 1-2x During Session Anxiety or Irritability: 1=Feels Anxious/Irritable Goose Flesh Skin: 3=Piloerection COWS Score: 14 [facility] Progress Note (SOAP) Subjective: nausea, sweats, interrupted sleep, anxiety, tremors Objective: 09/25/16 12:29 Vital Signs - 8 hr 09/25/16 09/25/16 06:50 10:23 Temperature 96.8 F L 97.2 F L Pulse Rate 68 72 Respiratory 18 18 Rate Blood Pressure 110/79 95/68 Laboratory Tests 09/23/16 09/24/16 09/24/16 17:04 07:00 07:00 WBC 7.2 D RBC 4.41 Hgb 13.8 D Hct 42.3 MCV 95.9 MCH 31.4 MCHC 32.7 RDW 12.2 Plt Count No Result Required. MPV 8.2 Platelet Estimate Adequate Platelet Comment Unable to enumerate Sodium 138 Potassium 4.0 Chloride 104 Carbon Dioxide 26 Anion Gap 8 BUN 8 D Creatinine 0.7 Creat Clearance w eGFR > 60 Random Glucose 101 Calcium 8.8 Total Bilirubin 1.1 H D AST 46 H D ALT 37 D Alkaline Phosphatase 162 H Total Protein 6.9 Albumin 2.9 L Urine Color Yellow Urine Appearance Clear Urine pH 6.0 Ur Specific [place] 1.015 Urine Protein Negative Urine Glucose (UA) Negative Urine Ketones Negative Urine Blood Negative Urine Nitrite Negative Urine Bilirubin Negative Urine Urobilinogen Negative Ur Leukocyte Esterase Negative RPR Titer 09/24/16 07:00 WBC RBC Hgb Hct MCV MCH MCHC RDW Plt Count MPV Platelet Estimate Platelet Comment Sodium Potassium Chloride Carbon Dioxide Anion Gap BUN Creatinine Creat Clearance w eGFR Random Glucose Calcium Total Bilirubin AST ALT Alkaline Phosphatase Total Protein Albumin Urine Color Urine Appearance Urine pH Ur Specific [place] Urine Protein Urine Glucose (UA) Urine Ketones Urine Blood Urine Nitrite Urine Bilirubin Urine Urobilinogen Ur Leukocyte Esterase RPR Titer Nonreactive Assessment: 09/25/16 12:30 withdrawal sx, low alb Plan: cont detox, fluids, ambulation
[2016-09-25] MEDS: LOPERAMIDE HCL 2 MG CAPSULE PO PRN (15:34)
[2016-09-25] MEDS: IBUPROFEN 400 MG TABLET (FP) PO PRN (15:34)
[2016-09-25] MEDS: THIAMINE HCL 100 MG TABLET (FP) PO SCH (22:48)
[2016-09-25] MEDS: MINERAL OIL/PETROLAT/WATER TOPICAL CREAM 113 GM JAR TP SCH (22:49)
[2016-09-25] MEDS: chlordiazePOXIDE 5 MG CAPSULE PO SCH (22:49)
[2016-09-25] MEDS: diphenhydrAMINE HCL 50 MG CAPSULE PO PRN (22:50)
[2016-09-26] MEDS: chlordiazePOXIDE 5 MG CAPSULE PO SCH ×2 (05:58→10:48)
[2016-09-26 09:42] VITALS: BP 103/74; PULSE 79; TEMP 97.7
[2016-09-26 10:30] LABS: ALBUMIN 2.6 g/dl (3.4-5.0); BILIRUBIN,DIRECT 0.2 mg/dL (0.0-0.2)
[2016-09-26 10:32] LABS: BILIRUBIN,TOTAL 0.6 mg/dL (0.2-1.0); TOT PROT 6.3 g/dl (6.4-8.2)
--- NOTE | 2016-09-26 10:47 | PN ---
S Progress Note (SOAP) Subjective: Sweating,interrupted sleep,restless Objective: 09/26/16 10:45 Vital Signs - 8 hr 09/26/16 09/26/16 09/26/16 04:42 06:43 09:41 Temperature 96.3 F L 97.7 F Pulse Rate 73 79 Respiratory 20 18 18 Rate Blood Pressure 113/74 103/74 Laboratory Last Values WBC 7.2 K/mm3 (4.0-10.0) D 09/24/16 07:00 RBC 4.41 M/mm3 (4.00-5.60) 09/24/16 07:00 Hgb 13.8 GM/dL (11.7-16.9) D 09/24/16 07:00 Hct 42.3 % (35.4-49) 09/24/16 07:00 MCV 95.9 fl (80-96) 09/24/16 07:00 MCH 31.4 pg (25.7-33.7) 09/24/16 07:00 MCHC 32.7 g/dl (32.0-35.9) 09/24/16 07:00 RDW 12.2 % (11.9-15.9) 09/24/16 07:00 Plt Count No Result Required. 09/24/16 07:00 MPV 8.2 fl (7.5-11.1) 09/24/16 07:00 Platelet Estimate Adequate (NORMAL) 09/24/16 07:00 Platelet Comment Marked plt clumping 09/24/16 07:00 Platelet Comment Unable to enumerate 09/24/16 07:00 Sodium 138 mmol/L (136-145) 09/24/16 07:00 Potassium 4.0 mmol/L (3.5-5.1) 09/24/16 07:00 Chloride 104 mmol/L (98-107) 09/24/16 07:00 Carbon Dioxide 26 mmol/L (21-32) 09/24/16 07:00 Anion Gap 8 (8-16) 09/24/16 07:00 BUN 8 mg/dL (7-18) D 09/24/16 07:00 Creatinine 0.7 mg/dL (0.7-1.3) 09/24/16 07:00 Creat Clearance w eGFR > 60 (>60) 09/24/16 07:00 Random Glucose 101 mg/dL (74-106) 09/24/16 07:00 Calcium 8.8 mg/dL (8.5-10.1) 09/24/16 07:00 Total Bilirubin 1.1 mg/dL (0.2-1.0) H D 09/24/16 07:00 AST 46 U/L (15-37) H D 09/24/16 07:00 ALT 37 U/L (12-78) D 09/24/16 07:00 Alkaline Phosphatase 162 U/L (45-117) H 09/24/16 07:00 Total Protein 6.9 g/dl (6.4-8.2) 09/24/16 07:00 Albumin 2.9 g/dl (3.4-5.0) L 09/24/16 07:00 Urine Color Yellow 09/23/16 17:04 Urine Appearance Clear 09/23/16 17:04 Urine pH 6.0 (5.0-8.0) 09/23/16 17:04 Ur Specific [place] 1.015 (1.005-1.025) 09/23/16 17:04 Urine Protein Negative (NEGATIVE) 09/23/16 17:04 Urine Glucose (UA) Negative (NEGATIVE) 09/23/16 17:04 Urine Ketones Negative (NEGATIVE) 09/23/16 17:04 Urine Blood Negative (NEGATIVE) 09/23/16 17:04 Urine Nitrite Negative (NEGATIVE) 09/23/16 17:04 Urine Bilirubin Negative (NEGATIVE) 09/23/16 17:04 Urine Urobilinogen Negative mg/dL (0.2-1.0) 09/23/16 17:04 Ur Leukocyte Esterase Negative (NEGATIVE) 09/23/16 17:04 RPR Titer Nonreactive (NONREACTIVE) 09/24/16 07:00 labs noted Assessment: 09/26/16 10:46 Withdrawal sx. Plan: Continue detox
[2016-09-26] MEDS: PRENATAL VITAMINS W/ FOLIC ACID TABLET (FP) PO SCH (10:48)
[2016-09-26] MEDS: METHADONE HCL 5 MG TABLET (FOR DETOX USE ONLY) PO SCH (10:48)
[2016-09-26] MEDS: NICOTINE 21 MG/24 HOURS TOPICAL PATCH TD SCH (10:48)
--- NOTE | 2016-09-26 11:22 | DS ---
[facility] Detox Discharge Summary Admission Date: 09/23/16 Discharge Date: 09/26/16 - History Present History: Alcohol Dependence, Opioid Dependence Pertinent Past History: GERD Hep C - Physical Exam Results Vital Signs: Vital Signs Temperature 97.7 F 09/26/16 09:41 Pulse Rate 79 09/26/16 09:41 Respiratory Rate 18 09/26/16 09:41 Blood Pressure 103/74 09/26/16 09:41 O2 Sat by Pulse Oximetry (%) Pertinent Admission Physical Exam Findings: Withdrawal sx. Laboratory Last Values WBC 7.2 K/mm3 (4.0-10.0) D 09/24/16 07:00 RBC 4.41 M/mm3 (4.00-5.60) 09/24/16 07:00 Hgb 13.8 GM/dL (11.7-16.9) D 09/24/16 07:00 Hct 42.3 % (35.4-49) 09/24/16 07:00 MCV 95.9 fl (80-96) 09/24/16 07:00 MCH 31.4 pg (25.7-33.7) 09/24/16 07:00 MCHC 32.7 g/dl (32.0-35.9) 09/24/16 07:00 RDW 12.2 % (11.9-15.9) 09/24/16 07:00 Plt Count No Result Required. 09/24/16 07:00 MPV 8.2 fl (7.5-11.1) 09/24/16 07:00 Platelet Estimate Adequate (NORMAL) 09/24/16 07:00 Platelet Comment Marked plt clumping 09/24/16 07:00 Platelet Comment Unable to enumerate 09/24/16 07:00 Sodium 138 mmol/L (136-145) 09/24/16 07:00 Potassium 4.0 mmol/L (3.5-5.1) 09/24/16 07:00 Chloride 104 mmol/L (98-107) 09/24/16 07:00 Carbon Dioxide 26 mmol/L (21-32) 09/24/16 07:00 Anion Gap 8 (8-16) 09/24/16 07:00 BUN 8 mg/dL (7-18) D 09/24/16 07:00 Creatinine 0.7 mg/dL (0.7-1.3) 09/24/16 07:00 Creat Clearance w eGFR > 60 (>60) 09/24/16 07:00 Random Glucose 101 mg/dL (74-106) 09/24/16 07:00 Calcium 8.8 mg/dL (8.5-10.1) 09/24/16 07:00 Total Bilirubin 0.6 mg/dL (0.2-1.0) D 09/26/16 07:00 Direct Bilirubin 0.2 mg/dL (0.0-0.2) 09/26/16 07:00 AST 34 U/L (15-37) D 09/26/16 07:00 ALT 32 U/L (12-78) 09/26/16 07:00 Alkaline Phosphatase 169 U/L (45-117) H 09/26/16 07:00 Total Protein 6.3 g/dl (6.4-8.2) L 09/26/16 07:00 Albumin 2.6 g/dl (3.4-5.0) L 09/26/16 07:00 Urine Color Yellow 09/23/16 17:04 Urine Appearance Clear 09/23/16 17:04 Urine pH 6.0 (5.0-8.0) 09/23/16 17:04 Ur Specific [place] 1.015 (1.005-1.025) 09/23/16 17:04 Urine Protein Negative (NEGATIVE) 09/23/16 17:04 Urine Glucose (UA) Negative (NEGATIVE) 09/23/16 17:04 Urine Ketones Negative (NEGATIVE) 09/23/16 17:04 Urine Blood Negative (NEGATIVE) 09/23/16 17:04 Urine Nitrite Negative (NEGATIVE) 09/23/16 17:04 Urine Bilirubin Negative (NEGATIVE) 09/23/16 17:04 Urine Urobilinogen Negative mg/dL (0.2-1.0) 09/23/16 17:04 Ur Leukocyte Esterase Negative (NEGATIVE) 09/23/16 17:04 RPR Titer Nonreactive (NONREACTIVE) 09/24/16 07:00 labs noted - Treatment Patient has Accepted a Rehab Referral to: [facility] meetings - Medication Discharge Medications: Ambulatory Orders NK [No Known Home Medication] 09/23/16 - Diagnosis (1) Alcohol dependence with uncomplicated withdrawal Status: Acute (2) GERD (gastroesophageal reflux disease) Status: Acute Qualifiers: Esophagitis presence: without esophagitis Qualified Code(s): K21.9 - Gastro-esophageal reflux disease without esophagitis (3) Nicotine dependence Status: Acute Qualifiers: Nicotine product type: cigarettes Substance use status: uncomplicated Qualified Code(s): F17.210 - Nicotine dependence, cigarettes, uncomplicated (4) Opioid dependence with withdrawal Status: Acute (5) Hepatitis C antibody test positive Status: Chronic (6) Drug-induced mood disorder Status: Suspected - AMA Did Patient Leave Against Medical Advice: Yes
[2016-09-26] MEDS ORDERED: chlordiazePOXIDE HCL 10 MG CAPSULE PO SCH (23:00)
[2016-09-27] MEDS ORDERED: METHADONE HCL 10 MG TABLET (FOR DETOX USE ONLY) PO SCH (10:00)
[2016-09-28] MEDS ORDERED: METHADONE HCL 5 MG TABLET (FOR DETOX USE ONLY) PO SCH (06:00)
== END 2016-09-26 11:30 | disposition left against medical advice (07) | DRG 770 ==
LOC: YASAS 14:08 → Y3N 16:46
PROVIDERS: ADMIT Internal Medicine; ATTEND Internal Medicine
PROC: HZ2ZZZZ Detoxification Services for Substance Abuse Treatment (ICD-10-PCS; principal; 2016-09-23)
DX: F11.23 Opioid dependence with withdrawal (principal); F10.230 Alcohol dependence with withdrawal, uncomplicated; F17.210 Nicotine dependence, cigarettes, uncomplicated; F19.24 Other psychoactive substance dependence with psychoactive substance-induced mood disorder; K21.9 Gastro-esophageal reflux disease without esophagitis; B18.2 Chronic viral hepatitis C; K74.60 Unspecified cirrhosis of liver; R00.0 Tachycardia, unspecified; Z87.898 Personal history of other specified conditions
CPT/HCPCS: 36415; 80053; 80076; 81003; 85027; 86593; 93005; 93010

== ENCOUNTER 2017-05-19 12:23 | Inpatient (IN) | payer OTHER ==
[2017-05-19 16:12] VITALS: BMI 26.6
[2017-05-19] MEDS ORDERED: MELATONIN 5 MG TABLETS PO PRN (22:00)
--- NOTE | 2017-05-19 22:16 | HP ---
COWS - Scale Resting Pulse: 1= SD 81-100 Sweatin= Chills/Flushing Restless Observation: 1= Difficult to Sit Still Pupil Size: 0= Normal to Room Light Bone or Joint Aches: 1= Mild Discomfort Runny Nose/ Eye Tearin= Runny Nose/Eyes GI Upset > 30mins: 2= Nausea/Diarrhea (BM x 4 today) Tremor Observation: 1= Tremor [place], Not Seen Yawning Observation: 1= 1-2x During Session Anxiety or Irritability: 1=Feels Anxious/Irritable Goose Flesh Skin: 3=Piloerection COWS Score: 14 CIWA Score - CIWA Score Nausea/Vomitin Muscle Tremors: 2 Anxiety: 3 Agitation: 1-Slight > Activity Paroxysmal Sweats: 1-Minimal Palms Moist Orientation: 0-Oriented Tacttile Disturbances: 1-Very Mild Itch/Numbness Auditory Disturbances: 0-None Visual Disturbances: 2-Mild Sensitivity Headache: 0-None Present CIWA-Ar Total Score: 12 Admission ROS S - HPI Chief Complaint: I am here to detox from alcohol and heroin Allergies/Adverse Reactions: Allergies Allergy/AdvReac Type Severity Reaction Status Date / Time No Known Allergies Allergy Verified 05/19/17 16:29 History of Present Illness: 61 yo male with IV heroin and alcohol dependence is here seeking detox. Smokes 1 pack of cigarettes per day. PMHX: Hep C and Cirrhosis, depression, insomnia Last detox 6 months go at [facility]. Reports feeling depress after the of his son last year. Denies any significant period of sobriety. Denies suicidal / homicidal ideation or suicide attempts. Exam Limitations: No Limitations - Ebola screening Have you traveled outside of the country in the last 21 days: No Have you had contact with anyone from an Ebola affected area: No Have you been sick,other than usual withdrawal symptoms: No Do you have a fever: No - Review of Systems Constitutional: Chills, Changes in sleep, Unintentional Wgt. Loss (15 lbs in a the past month) EENT: reports: Blurred Vision (uses reading glasses) Respiratory: reports: Cough (x 3 weeks) Cardiac: reports: No Symptoms Reported GI: reports: Diarrhea, Nausea, Poor Appetite, Poor Fluid Intake, Other (gas) : reports: Frequency Musculoskeletal: reports: Back Pain, Joint Pain (rigth knee and right shoulder) Integumentary: reports: No Symptoms Reported Neuro: reports: Numbness (toes) Endocrine: reports: Increased Thirst, Change in Weight Hematology: reports: No Symptoms Reported Psychiatric: reports: Orientated x3, Depressed Other Systems: Reviewed and Negative Patient History - Patient Medical History Hx Anemia: No Hx Asthma: No Hx Chronic Obstructive Pulmonary Disease (COPD): No Hx Cancer: No Hx Cardiac Disorders: No Hx Congestive Heart Failure: No Hx Hypertension: No Hx Hypercholesterolemia: No Hx Pacemaker: No HX Cerebrovascular Accident: No Hx Seizures: No Hx Dementia: No Hx Diabetes: No Hx Gastrointestinal Disorders: No Hx Liver Disease: Yes (cirrohosis of liver 1987; no treatment) Hx Genitourinary Disorders: No Hx Sexually Transmitted Disorders: Yes (gonorrhea at age 20) Hx Renal Disease (ESRD): No Hx Thyroid Disease: No Hx Human Immunodeficiency Virus (HIV): No (lasted 2016) Hx Hepatitis C: Yes Hx Depression: Yes Hx Suicide Attempt: No Hx Bipolar Disorder: No Hx Schizophrenia: No - Patient Surgical History Past Surgical History: Yes Hx Neurologic Surgery: No Hx Cataract Extraction: No Hx Cardiac Surgery: No Hx Lung Surgery: No Hx Breast Surgery: No Hx Breast Biopsy: No Hx Abdominal Surgery: No Hx Appendectomy: No Hx Cholecystectomy: No Hx Genitourinary Surgery: No Hx Section: No Hx Orthopedic Surgery: No Other Surgical History: tonsilectomy 14 years old , left ingrunal 15 years old Anesthesia Reaction: No - PPD History Previous Implant?: Yes Documented Results: Negative w/proof Implanted On Prior [facility] Admission?: Yes Date: 12/13/15 Results: 0 mm PPD to be Administered?: Yes - Smoking Cessation Smoking history: Current every day smoker Have you smoked in the past 12 months: Yes Aproximately how many cigarettes per day: 20 Cigars Per Day: 0 Hx Chewing Tobacco Use: No Initiated information on smoking cessation: Yes 'Breaking Loose' booklet given: 05/19/17 - Substance & Tx. History Hx Alcohol Use: Yes Hx Substance Use: Yes Substance Use Type: Alcohol, Heroin Hx Substance Use Treatment: Yes (Last detox 6 months go at [facility]. ) - Substances Abused Heroin Route: Injection Frequency: Daily Amount used: 2-3 bags Age of first use: 35 Date of Last Use: 05/19/17 Alcohol-beer/vodka Route: Oral Frequency: Daily Amount used: 2-3 (24 oz.)//2-1 pt. Age of first use: 11 Date of Last Use: 05/19/17 Family Disease History - Family Disease History Family Disease History: Heart Disease: Son ( ), CA: Father (), Mother (), Other: Father, Son Admission Physical Exam BHS - Vital Signs Vital Signs: Vital Signs - 24 hr 05/19/17 16:10 Temperature 97.8 F Pulse Rate 84 Respiratory 18 Rate Blood Pressure 111/64 - Physical General Appearance: Yes: Disheveled, Mild Distress, Alcohol on Breath, Anxious, Other (malodorous) HEENTM: Yes: EOMI, Hearing grossly Normal, Normal ENT Inspection, Normocephalic , Normal Voice, SHIRIN, Pharynx Normal, Tm's normal Respiratory: Yes: Chest Non-Tender, Lungs Clear, Normal Breath Sounds, No Respiratory Distress, No Accessory Muscle Use Neck: Yes: No masses,lesions,Nodules, Trachea in good position Breast: Yes: Breast Exam Deferred Cardiology: Yes: Within Normal Limits Abdominal: Yes: Normal Bowel Sounds, Non Tender, Soft, Protuberent Genitourinary: Yes: Within Normal Limits Back: Yes: Normal Inspection Musculoskeletal: Yes: full range of Motion, Gait Steady, Back pain Extremities: Yes: Normal Capillary Refill, Normal Inspection, Normal Range of Motion, Non-Tender Neurological: Yes: digital sales director II-XII NML intact, Fully Oriented, Alert, Motor Strength 5/5, Depressed Affect Integumentary: Yes: Normal Color, Warm, Moist, Track Thacker (bilateral wrist no signs of infection) Lymphatic: Yes: Within Normal Limits - Diagnostic (1) Alcohol dependence with uncomplicated withdrawal Current Visit: No Status: Acute (2) GERD (gastroesophageal reflux disease) Current Visit: No Status: Acute Qualifiers: Esophagitis presence: without esophagitis Qualified Code(s): K21.9 - Gastro -esophageal reflux disease without esophagitis (3) Nicotine dependence Current Visit: No Status: Acute Qualifiers: Nicotine product type: cigarettes Substance use status: uncomplicated Qualified Code(s): F17.210 - Nicotine dependence, cigarettes, uncomplicated (4) Opioid dependence with withdrawal Current Visit: No Status: Acute (5) Weight loss Current Visit: No Status: Acute (6) Alcoholic cirrhosis of liver Current Visit: No Status: Chronic Qualifiers: Ascites presence: without ascites Qualified Code(s): K70.30 - Alcoholic cirrhosis of liver without ascites (7) Arthritis Current Visit: No Status: Chronic (8) Hepatitis C antibody test positive Current Visit: No Status: Chronic (9) Diarrhea Current Visit: Yes Status: Acute Qualifiers: Diarrhea type: unspecified type Qualified Code(s): R19.7 - Diarrhea, unspecified Cleared for Admission [facility] - Detox or Rehab [facility] Level of Care: Medically Managed Detox Regimen/Protocol: Methadone/Librium [facility] Breath Alcohol Content Breath Alcohol Content: 0.051 Urine Drug Screen - Results Drug Screen Negative: No Urine Drug Screen Results: OPI-Opiates
[2017-05-19] MEDS ORDERED: guaiFENesin/D-METHORPHAN HB 10 ML UNIT-DOSE CUPS PO PRN (22:23)
[2017-05-19] MEDS ORDERED: chlordiazePOXIDE HCL 25 MG CAPSULE PO PRN (22:23)
[2017-05-19] MEDS ORDERED: MAGNESIUM CITRATE 300 ML BOTTLE PO PRN (22:23)
[2017-05-19] MEDS ORDERED: IBUPROFEN 400 MG TABLET (FP) PO PRN (22:23)
[2017-05-19] MEDS ORDERED: MAGNESIUM HYDROX 2400MG/30ML ORAL SUSPENSION 30 ML CUP PO PRN (22:23)
[2017-05-19] MEDS ORDERED: chlordiazePOXIDE HCL 25 MG CAPSULE PO ONE (22:23)
[2017-05-19] MEDS ORDERED: MAG HYDROX/AL HYDROX/SIMETH 30 ML UNIT-DOSE CUP PO PRN (22:23)
[2017-05-19] MEDS ORDERED: METHADONE HCL 10 MG TABLET (FOR DETOX USE ONLY) PO ONE ×2 (22:23→23:00)
[2017-05-19] MEDS ORDERED: hydrOXYzine PAMOATE 50 MG CAPSULE (FP) PO PRN (22:23)
[2017-05-19] MEDS ORDERED: NICOTINE POLACRILEX 2 MG GUM BC PRN (22:23)
[2017-05-19] MEDS ORDERED: ACETAMINOPHEN 325 MG TABLET (FP) PO PRN (22:23)
[2017-05-19] MEDS ORDERED: LOPERAMIDE HCL 2 MG CAPSULE PO PRN (22:23)
[2017-05-19] MEDS ORDERED: P-EPHED 60MG/TRIPROLIDI 2.5MG TABLET PO PRN (22:23)
[2017-05-19] MEDS ORDERED: MENTHOL/PHENOL 1 EACH UD MM PRN (22:23)
[2017-05-19] MEDS ORDERED: chlordiazePOXIDE HCL 25 MG CAPSULE PO SCH (23:00)
[2017-05-20] MEDS ORDERED: chlordiazePOXIDE HCL 25 MG CAPSULE PO PRN ×2 (00:28→00:47)
[2017-05-20] MEDS ORDERED: chlordiazePOXIDE HCL 25 MG CAPSULE PO ONE (00:28)
[2017-05-20] MEDS ORDERED: METHADONE HCL 10 MG TABLET (FOR DETOX USE ONLY) PO ONE ×3 (00:47→22:00)
[2017-05-20] MEDS ORDERED: chlordiazePOXIDE HCL 25 MG CAPSULE PO SCH ×2 (05:00→23:00)
[2017-05-20] MEDS: chlordiazePOXIDE HCL 25 MG CAPSULE PO SCH ×4 (05:23→22:12)
[2017-05-20 08:49] LABS: URINE APPEARANCE CLOUDY; URINE BILIRUBIN NEGATIVE (<2.0 mg/dL); URINE BLOOD NEGATIVE (NEGATIVE); URINE GLUCOSE (UA) NEGATIVE (NEGATIVE); URINE KETONE NEGATIVE (NEGATIVE); URINE LEUK ESTERASE NEGATIVE (NEGATIVE); URINE NITRITE NEGATIVE (NEGATIVE); URINE PROTEIN NEGATIVE (NEGATIVE); URINE UROBILINOGEN NEGATIVE mg/dL (0.2-1.0)
[2017-05-20 09:05] LABS: URINE COLOR DK YELLOW
[2017-05-20] MEDS ORDERED: PRENATAL VITAMINS W/ FOLIC ACID TABLET (FP) PO SCH (10:00)
[2017-05-20] MEDS ORDERED: METHADONE HCL 10 MG TABLET (FOR DETOX USE ONLY) PO SCH (10:00)
[2017-05-20] MEDS ORDERED: NICOTINE 14 MG/24 HOURS TOPICAL PATCH TD SCH (10:00)
[2017-05-20 10:49] LABS: HEMATOCRIT 39.4 % (35.4-49); HEMOGLOBIN 13.1 GM/dL (11.7-16.9); MCH 32.4 pg (25.7-33.7); MCHC 33.2 g/dl (32.0-35.9); MEAN CELL VOLUME 97.6 fl (80-96); MEAN PLT VOLUME 9.3 fl (7.5-11.1); RBC 4.04 M/mm3 (4.00-5.60); RDW 13.1 % (11.9-15.9); WHITE BLOOD COUNT 3.8 K/mm3 (4.0-10.0)
--- NOTE | 2017-05-20 10:53 | EKG ---
Test Reason : Blood Pressure : / mmHG Vent. Rate : 069 BPM Atrial Rate : 069 BPM P-R Int : 192 ms QRS Dur : 092 ms QT Int : 402 ms P-R-T Axes : 066 070 063 degrees QTc Int : 430 ms NORMAL SINUS RHYTHM NORMAL ECG WHEN COMPARED WITH ECG OF 23-SEP-2016 18:01, T WAVE AMPLITUDE HAS DECREASED IN LATERAL LEADS Confirmed by LAKISHA DANIELSON, EFRA ([id number]) on 05/20/2017 10:53:24 AM Referred By: Confirmed By:EFRA BANUELOS MD
[2017-05-20 11:04] LABS: ALBUMIN 2.8 g/dl (3.4-5.0); ANION GAP 4 (8-16); BLOOD UREA NITROGEN 12 mg/dL (7-18); CALCIUM 8.4 mg/dL (8.5-10.1); CHLORIDE 108 mmol/L (98-107); CO2 29 mmol/L (21-32); GLUCOSE,RANDOM 107 mg/dL (74-106); POTASSIUM 4.3 mmol/L (3.5-5.1); SODIUM 141 mmol/L (136-145)
[2017-05-20 11:08] LABS: ALK PHOS 151 U/L (45-117); BILIRUBIN,TOTAL 0.3 mg/dL (0.2-1.0); CREATININE 0.8 mg/dL (0.7-1.3); SGOT/AST 121 U/L (15-37); SGPT/ALT 100 U/L (12-78); TOT PROT 6.3 g/dl (6.4-8.2)
--- NOTE | 2017-05-20 11:11 | CONSULT ---
[facility] Psychiatric Consult - Data Date of interview: 05/20/17 Admission source: [facility] Identifying data: Readmission to [facility] for this 61 y/o AA male seeking detox treatment on for alcohol and heroin dependence.Patient is , a father of three (lost son last year),domiciled,unemployed and supported on food stamps. Substance Abuse History: Patient endorses a 25+ year history of heroin abuse (IV +snorting) and alcohol abuse since age [age].Details in the current [facility] report imported in this document : Smoking history: Current every day smoker. Have you smoked in the past 12 months: Yes. Aproximately how many cigarettes per day : 20. Cigars Per Day: 0. Hx Chewing Tobacco Use: No. Initiated information on smoking cessation: Yes. 'Breaking Loose' booklet given: 05/19/17. - Substance & Tx. History. Hx Alcohol Use: Yes. Hx Substance Use: Yes. Substance Use Type: Alcohol, Heroin. Hx Substance Use Treatment: Yes (Last detox 6 months go at [facility]. ). - Substances Abused. Heroin. Route: Injection. Frequency: Daily. Amount used: 2-3 bags. Age of first use: 35. Date of Last Use: 05/19/17. Alcohol-beer/vodka. Route: Oral. Frequency: Daily. Amount used: 2-3 (24 oz.)/1/2-1 pt. Age of first use : 11. Date of Last Use: 05/19/17 Medical History: Arthritis of right knee + right shoulder,chronic joint pain, hepatitis C,cirrhosis of the liver,antecedent of gonorrhea (age 20) and a distant history of left inguinal herniorraphy (age 15) + tonsillectomy (age 14). Psychiatric History: Patient denies history of psychiatric hospitalizations or suicide attempts.No prior exposure to psychotropic medications. Physical/Sexual Abuse/Trauma History: No reported history of abuse.Saddened by the recent of son (2017). Additional Comment: Urine Drug Screen Results: OPI-Opiates.Noted. Mental Status Exam - Mental Status Exam Alert and Oriented to: Time, Place, Person Cognitive Function: Good Patient Appearance: Well Groomed (short stature) Mood: Nervous (dysphoric), Withdrawn Affect: Appropriate, Mood Congruent (neutral affect) Patient Behavior: Fatigued, Appropriate, Cooperative Thought Process: Intact, Goal Oriented Thought Disorder: Not Present Hallucinations: Denies Suicidal Ideation: Denies Homicidal Ideation: Denies Insight/Judgement: Poor Sleep: Fair Appetite: Good Muscle strength/Tone: Normal Gait/Station: Normal Psychiatric Findings - Problem List ([place] 1, 2,3) (1) Alcohol dependence with uncomplicated withdrawal Current Visit: Yes Status: Acute (2) Opioid dependence with withdrawal Current Visit: Yes Status: Acute (3) Nicotine dependence Current Visit: Yes Status: Acute Qualifiers: Nicotine product type: cigarettes Substance use status: uncomplicated Qualified Code(s): F17.210 - Nicotine dependence, cigarettes, uncomplicated (4) Drug-induced mood disorder Current Visit: Yes Status: Chronic - Initial Treatment Plan Initial Treatment Plan: Psychoeducation.Detoxification in progress.Observation.
[2017-05-20] MEDS ORDERED: FLU VACCINE QUAD 60 MCG/0.5 ML (MDV 17-18) IM ONE (12:00)
--- NOTE | 2017-05-20 16:37 | PN ---
[facility] CIWA - CIWA Score Nausea/Vomitin-No Nausea/No Vomiting Muscle Tremors: 3 Anxiety: 4-Mod. Anxious/Guarded Agitation: 2 Paroxysmal Sweats: 3 Orientation: 0-Oriented Tacttile Disturbances: 3-Moderate Itch/Numb/Burn Auditory Disturbances: 0-None Visual Disturbances: 0-None Headache: 4-Moderately Severe CIWA-Ar Total Score: 19 BHS COWS - Scale Resting Pulse: 0= [place] 80 or Below Sweatin= Chills/Flushing Restless Observation: 1= Difficult to Sit Still Pupil Size: 0= Normal to Room Light Bone or Joint Aches: 2= Severe Diffuse Aches Runny Nose/ Eye Tearin= None GI Upset > 30mins: 2= Nausea/Diarrhea Tremor Observation of Outstretched Hands: 2= Slight Tremor Visible Yawning Observation: 1= 1-2x During Session Anxiety or Irritability: 2=Irritable/Anxious Goose Flesh Skin: 3=Piloerection COWS Score: 14 S Progress Note (SOAP) Subjective: Fatigue, Body Aches, Sweating, Diarrhea, Nausea, H/A, Tremors. Objective: PATIENT A & O X 3. NO ACUTE DISTRESS. 05/20/17 16:33 Vital Signs Temperature 97.2 F L 05/20/17 14:39 Pulse Rate 76 05/20/17 14:39 Respiratory Rate 20 05/20/17 14:39 Blood Pressure 114/65 05/20/17 14:39 O2 Sat by Pulse Oximetry (%) Laboratory Tests 05/19/17 05/20/17 05/20/17 22:00 07:00 07:00 WBC 3.8 L D RBC 4.04 Hgb 13.1 Hct 39.4 MCV 97.6 H MCH 32.4 MCHC 33.2 RDW 13.1 Plt Count MPV 9.3 D Platelet Comment Mod plt clumping Sodium Potassium Chloride Carbon Dioxide Anion Gap BUN Creatinine Creat Clearance w eGFR Random Glucose Calcium Total Bilirubin AST ALT Alkaline Phosphatase Total Protein Albumin Urine Color Dk yellow Urine Appearance Cloudy Urine pH 5.0 Ur Specific [place] 1.017 Urine Protein Negative Urine Glucose (UA) Negative Urine Ketones Negative Urine Blood Negative Urine Nitrite Negative Urine Bilirubin Negative Urine Urobilinogen Negative Ur Leukocyte Esterase Negative HIV 1&2 Antibody Screen Negative HIV P24 Antigen Negative 05/20/17 07:00 WBC RBC Hgb Hct MCV MCH MCHC RDW Plt Count MPV Platelet Comment Sodium 141 Potassium 4.3 Chloride 108 H Carbon Dioxide 29 Anion Gap 4 L BUN 12 D Creatinine 0.8 Creat Clearance w eGFR > 60 Random Glucose 107 H Calcium 8.4 L Total Bilirubin 0.3 D AST 121 H D ALT 100 H D Alkaline Phosphatase 151 H Total Protein 6.3 L Albumin 2.8 L Urine Color Urine Appearance Urine pH Ur Specific [place] Urine Protein Urine Glucose (UA) Urine Ketones Urine Blood Urine Nitrite Urine Bilirubin Urine Urobilinogen Ur Leukocyte Esterase HIV 1&2 Antibody Screen HIV P24 Antigen LABS NOTED. RPR RESULT PENDING. 05/20/17 16:39 Assessment: 05/20/17 16:34 WITHDRAWAL SYMPTOMS. Plan: CONTINUE DETOX. REPEAT PLATELET LEVEL (UNABLE TO CALCULATE FIRST TIME), [facility] ON 05/22/2017.
[2017-05-20] MEDS ORDERED: THIAMINE HCL 100 MG TABLET (FP) PO SCH (22:00)
[2017-05-21] MEDS ORDERED: chlordiazePOXIDE HCL 25 MG CAPSULE PO SCH ×2 (05:00)
[2017-05-21 06:12] VITALS: TEMP 96.8
[2017-05-21 09:24] VITALS: BP 98/59; PULSE 67
[2017-05-21] MEDS ORDERED: METHADONE HCL 10 MG TABLET (FOR DETOX USE ONLY) PO SCH (10:00)
[2017-05-21] MEDS ORDERED: METHADONE HCL 5 MG TABLET (FOR DETOX USE ONLY) PO SCH (10:00)
[2017-05-21] MEDS ORDERED: FLU VACCINE QUAD 60 MCG/0.5 ML (MDV 17-18) IM ONE (12:00)
--- NOTE | 2017-05-21 12:40 | PN ---
S CIWA - CIWA Score Nausea/Vomitin-No Nausea/No Vomiting Muscle Tremors: 2 Anxiety: 4-Mod. Anxious/Guarded Agitation: 4-Moderately Restless Paroxysmal Sweats: 3 Orientation: 0-Oriented Tacttile Disturbances: 2-Mild Itch/Numbness/Burn Auditory Disturbances: 0-None Visual Disturbances: 1-Very Mild Sensitivity Headache: 0-None Present CIWA-Ar Total Score: 16 S COWS - Scale Resting Pulse: 0= [place] 80 or Below Sweatin= Chills/Flushing Restless Observation: 1= Difficult to Sit Still Pupil Size: 0= Normal to Room Light Bone or Joint Aches: 2= Severe Diffuse Aches Runny Nose/ Eye Tearin= None GI Upset > 30mins: 1= Stomach Cramp Tremor Observation of Outstretched Hands: 2= Slight Tremor Visible Yawning Observation: 1= 1-2x During Session Anxiety or Irritability: 4=Extreme Anxiety Goose Flesh Skin: 0=Smooth Skin COWS Score: 12 S Progress Note (SOAP) Subjective: Tremors, Body Aches, Anxious, Sweating. Objective: PATIENT A & OX 3, OBSERVED AMBULATING ON UNIT. NO ACUTE DISTRESS. 05/21/17 12:38 Vital Signs Temperature 96.8 F L 05/21/17 09:24 Pulse Rate 67 05/21/17 09:24 Respiratory Rate 18 05/21/17 09:24 Blood Pressure 98/59 05/21/17 09:24 O2 Sat by Pulse Oximetry (%) Laboratory Tests 05/19/17 05/20/17 05/20/17 22:00 07:00 07:00 WBC 3.8 L D RBC 4.04 Hgb 13.1 Hct 39.4 MCV 97.6 H MCH 32.4 MCHC 33.2 RDW 13.1 Plt Count MPV 9.3 D Platelet Comment Mod plt clumping Sodium Potassium Chloride Carbon Dioxide Anion Gap BUN Creatinine Creat Clearance w eGFR Random Glucose Calcium Total Bilirubin AST ALT Alkaline Phosphatase Total Protein Albumin Urine Color Dk yellow Urine Appearance Cloudy Urine pH 5.0 Ur Specific [place] 1.017 Urine Protein Negative Urine Glucose (UA) Negative Urine Ketones Negative Urine Blood Negative Urine Nitrite Negative Urine Bilirubin Negative Urine Urobilinogen Negative Ur Leukocyte Esterase Negative HIV 1&2 Antibody Screen Negative HIV P24 Antigen Negative 05/20/17 05/21/17 07:00 07:00 WBC RBC Hgb Hct MCV MCH MCHC RDW Plt Count MPV Platelet Comment Sodium 141 Potassium 4.3 Chloride 108 H Carbon Dioxide 29 Anion Gap 4 L BUN 12 D Creatinine 0.8 Creat Clearance w eGFR > 60 Random Glucose 107 H Calcium 8.4 L Total Bilirubin 0.3 D AST 121 H D ALT 100 H D Alkaline Phosphatase 151 H Total Protein 6.3 L Albumin 2.8 L Urine Color Urine Appearance Urine pH Ur Specific [place] Urine Protein Urine Glucose (UA) Urine Ketones Urine Blood Urine Nitrite Urine Bilirubin Urine Urobilinogen Ur Leukocyte Esterase HIV 1&2 Antibody Screen HIV P24 Antigen LABS NOTED. Assessment: 05/21/17 12:38 WITHDRAWAL SYMPTOMS. Plan: CONTINUE DETOX.
--- NOTE | 2017-05-21 12:46 | DS ---
[facility] Detox Discharge Summary Admission Date: 05/19/17 Discharge Date: 05/21/17 - History Present History: Alcohol Dependence, Opioid Dependence Additional Comments: PATIENT HAS PERSONAL ISSUE TO ATTEND TO AND DOES NOT WISH TO STAY TO COMPLETE DETOX REGIMEN. RISKS OF LEAVING DETOX UNIT PRIOR TO COMPLETION OF DETOX REGIMEN AND AGAINST MEDICAL ADVICE EXPLAINED TO PATIENT. PATIENT ADVISED TO GO IMMEDIATELY TO NEAREST ER SHOULD ANY INTOLERABLE DETOX SYMPTOMS DEVELOP AT ANY TIME. PATIENT LEFT DETOX UNIT IN STABLE MEDICAL CONDITION. Pertinent Past History: Cirrhosis of Liver, Hep C, Depression, GERD, Nicotine Dependence, Arthritis, Diarrhea. - Physical Exam Results Vital Signs: Vital Signs Temperature 96.8 F L 05/21/17 09:24 Pulse Rate 67 05/21/17 09:24 Respiratory Rate 18 05/21/17 09:24 Blood Pressure 98/59 05/21/17 09:24 O2 Sat by Pulse Oximetry (%) Pertinent Admission Physical Exam Findings: WITHDRAWAL SYMPTOMS. Laboratory Tests 05/19/17 05/20/17 05/20/17 22:00 07:00 07:00 WBC 3.8 L D RBC 4.04 Hgb 13.1 Hct 39.4 MCV 97.6 H MCH 32.4 MCHC 33.2 RDW 13.1 Plt Count MPV 9.3 D Platelet Comment Mod plt clumping Sodium Potassium Chloride Carbon Dioxide Anion Gap BUN Creatinine Creat Clearance w eGFR Random Glucose Calcium Total Bilirubin AST ALT Alkaline Phosphatase Total Protein Albumin Urine Color Dk yellow Urine Appearance Cloudy Urine pH 5.0 Ur Specific [place] 1.017 Urine Protein Negative Urine Glucose (UA) Negative Urine Ketones Negative Urine Blood Negative Urine Nitrite Negative Urine Bilirubin Negative Urine Urobilinogen Negative Ur Leukocyte Esterase Negative HIV 1&2 Antibody Screen Negative HIV P24 Antigen Negative 05/20/17 05/21/17 07:00 07:00 WBC RBC Hgb Hct MCV MCH MCHC RDW Plt Count MPV Platelet Comment Sodium 141 Potassium 4.3 Chloride 108 H Carbon Dioxide 29 Anion Gap 4 L BUN 12 D Creatinine 0.8 Creat Clearance w eGFR > 60 Random Glucose 107 H Calcium 8.4 L Total Bilirubin 0.3 D AST 121 H D ALT 100 H D Alkaline Phosphatase 151 H Total Protein 6.3 L Albumin 2.8 L Urine Color Urine Appearance Urine pH Ur Specific [place] Urine Protein Urine Glucose (UA) Urine Ketones Urine Blood Urine Nitrite Urine Bilirubin Urine Urobilinogen Ur Leukocyte Esterase HIV 1&2 Antibody Screen HIV P24 Antigen LABS NOTED. - Treatment Hospital Course: Detoxed Safely - Medication Discharge Medications: Ambulatory Orders NK [No Known Home Medication] 09/23/16 - Diagnosis (1) Alcohol dependence with uncomplicated withdrawal Status: Acute (2) Diarrhea Status: Acute Qualifiers: Diarrhea type: unspecified type Qualified Code(s): R19.7 - Diarrhea, unspecified (3) Nicotine dependence Status: Acute Qualifiers: Nicotine product type: cigarettes Substance use status: uncomplicated Qualified Code(s): F17.210 - Nicotine dependence, cigarettes, uncomplicated (4) Opioid dependence with withdrawal Status: Acute (5) GERD (gastroesophageal reflux disease) Status: Acute Qualifiers: Esophagitis presence: without esophagitis Qualified Code(s): K21.9 - Gastro -esophageal reflux disease without esophagitis (6) Weight loss Status: Acute (7) Alcoholic cirrhosis of liver Status: Chronic Qualifiers: Ascites presence: without ascites Qualified Code(s): K70.30 - Alcoholic cirrhosis of liver without ascites (8) Arthritis Status: Chronic (9) Hepatitis C antibody test positive Status: Chronic (10) Drug-induced mood disorder Status: Chronic - AMA Did Patient Leave Against Medical Advice: Yes (PT HAD PERSONAL ISSUE AND DID NOT WISH TO STAY TO COMPLETE DETOX REGIMEN.)
[2017-05-21] MEDS ORDERED: chlordiazePOXIDE 5 MG CAPSULE PO SCH (23:00)
[2017-05-22] MEDS ORDERED: chlordiazePOXIDE 5 MG CAPSULE PO SCH ×2 (05:00)
[2017-05-22] MEDS ORDERED: METHADONE HCL 5 MG TABLET (FOR DETOX USE ONLY) PO SCH (10:00)
[2017-05-22] MEDS ORDERED: chlordiazePOXIDE HCL 10 MG CAPSULE PO SCH (23:00)
[2017-05-23] MEDS ORDERED: chlordiazePOXIDE HCL 10 MG CAPSULE PO SCH ×2 (05:00)
[2017-05-23] MEDS ORDERED: METHADONE HCL 10 MG TABLET (FOR DETOX USE ONLY) PO SCH (10:00)
[2017-05-24] MEDS ORDERED: METHADONE HCL 5 MG TABLET (FOR DETOX USE ONLY) PO SCH (06:00)
[2017-05-24] MEDS ORDERED: METHADONE HCL 10 MG TABLET (FOR DETOX USE ONLY) PO SCH (10:00)
[2017-05-25] MEDS ORDERED: METHADONE HCL 5 MG TABLET (FOR DETOX USE ONLY) PO SCH (06:00)
== END 2017-05-21 09:17 | disposition left against medical advice (07) | DRG 770 ==
LOC: YASAS 12:23 → Y3N 17:30
PROVIDERS: ADMIT Internal Medicine; ATTEND Internal Medicine
PROC: HZ2ZZZZ Detoxification Services for Substance Abuse Treatment (ICD-10-PCS; principal; 2017-05-19)
PROC: HZ2ZZZZ Detoxification Services for Substance Abuse Treatment (ICD-10-PCS; 2017-05-19)
DX: F11.23 Opioid dependence with withdrawal (principal); F10.230 Alcohol dependence with withdrawal, uncomplicated; F17.210 Nicotine dependence, cigarettes, uncomplicated; F19.24 Other psychoactive substance dependence with psychoactive substance-induced mood disorder; B18.2 Chronic viral hepatitis C; K70.30 Alcoholic cirrhosis of liver without ascites; Z86.19 Personal history of other infectious and parasitic diseases; K21.9 Gastro-esophageal reflux disease without esophagitis; R19.7 Diarrhea, unspecified
CPT/HCPCS: 36415; 71046-TC-FY; 80053; 81003; 85027; 85032; 86593; 87389; 93005; 93010

== ENCOUNTER 2017-12-01 15:22 | Inpatient (IN) | payer OTHER ==
[2017-12-01 18:13] VITALS: BMI 23.8
--- NOTE | 2017-12-01 20:20 | HP ---
COWS - Scale Resting Pulse: 1= [place] 81-100 Sweatin= Chills/Flushing Restless Observation: 1= Difficult to Sit Still Pupil Size: 0= Normal to Room Light Bone or Joint Aches: 1= Mild Discomfort Runny Nose/ Eye Tearin= Runny Nose/Eyes GI Upset > 30mins: 2= Nausea/Diarrhea Tremor Observation: 1= Tremor [place], Not Seen Yawning Observation: 1= 1-2x During Session Anxiety or Irritability: 2=Irritable/Anxious Goose Flesh Skin: 0=Smooth Skin COWS Score: 12 CIWA Score - CIWA Score Nausea/Vomitin Muscle Tremors: 2 Anxiety: 2 Agitation: 1-Slight > Activity Paroxysmal Sweats: 2 Orientation: 0-Oriented Tacttile Disturbances: 1-Very Mild Itch/Numbness Auditory Disturbances: 1-Very Mild Visual Disturbances: 1-Very Mild Sensitivity Headache: 2-Mild CIWA-Ar Total Score: 15 Admission ROS S - HPI Chief Complaint: opioid withdrawal symptoms Allergies/Adverse Reactions: Allergies Allergy/AdvReac Type Severity Reaction Status Date / Time No Known Allergies Allergy Verified 05/19/17 16:29 History of Present Illness: 62yo male with IV heroin and alcohol dependence is here seeking detox. Patient currently undomiciled. Smokes 1 pack of cigarettes per day. Reports was seen at [facility] ED yesterday for BPH. PMHX: Hep C, BPH, and Cirrhosis, depression, insomnia. Last detox [facility] May 2017 left AMA. Denies any significant period of sobriety. Denies suicidal / homicidal ideation or suicide attempts. Denies hx of seizures or blackouts. Denies any legal troubles at this time. Longest period of sobriety three weeks. Exam Limitations: No Limitations - Ebola screening Have you traveled outside of the country in the last 21 days: No Have you had contact with anyone from an Ebola affected area: No Have you been sick,other than usual withdrawal symptoms: No Do you have a fever: No - Review of Systems Constitutional: Chills, Loss of Appetite, Unintentional Wgt. Loss EENT: reports: Nose Congestion Respiratory: reports: No Symptoms reported GI: reports: Diarrhea, Nausea, Poor Appetite, Poor Fluid Intake, Abdominal cramping : reports: See HPI Musculoskeletal: reports: No Symptoms Reported, Joint Pain Integumentary: reports: No Symptoms Reported Neuro: reports: Numbness (both thumbs) Endocrine: reports: Increased Thirst Hematology: reports: No Symptoms Reported Psychiatric: reports: Orientated x3, Anxious Other Systems: Reviewed and Negative Patient History - Patient Medical History Hx Anemia: No Hx Asthma: No Hx Chronic Obstructive Pulmonary Disease (COPD): No Hx Cancer: No Hx Cardiac Disorders: No Hx Congestive Heart Failure: No Hx Hypertension: No Hx Hypercholesterolemia: No Hx Pacemaker: No HX Cerebrovascular Accident: No Hx Seizures: No Hx Dementia: No Hx Diabetes: No Hx Gastrointestinal Disorders: No Hx Liver Disease: Yes (cirrohosis of liver 1986; no treatment) Hx Genitourinary Disorders: No Hx Sexually Transmitted Disorders: Yes (gonorrhea at age 20) Hx Renal Disease (ESRD): No Hx Thyroid Disease: No Hx Human Immunodeficiency Virus (HIV): No (lasted 2016) Hx Hepatitis C: Yes Hx Depression: Yes Hx Suicide Attempt: No Hx Bipolar Disorder: No Hx Schizophrenia: No - Patient Surgical History Past Surgical History: Yes Hx Neurologic Surgery: No Hx Cataract Extraction: No Hx Cardiac Surgery: No Hx Lung Surgery: No Hx Breast Surgery: No Hx Breast Biopsy: No Hx Abdominal Surgery: No Hx Appendectomy: No Hx Cholecystectomy: No Hx Genitourinary Surgery: No Hx Section: No Hx Orthopedic Surgery: No Other Surgical History: tonsilectomy 14 years old , left ingrunal 15 years old Anesthesia Reaction: No - PPD History Previous Implant?: No Documented Results: Negative w/proof Date: 12/13/15 Results: 0 mm PPD to be Administered?: Yes - Smoking Cessation Smoking history: Current every day smoker Have you smoked in the past 12 months: Yes Aproximately how many cigarettes per day: 20 Cigars Per Day: 0 Hx Chewing Tobacco Use: No Initiated information on smoking cessation: Yes 'Breaking Loose' booklet given: 12/01/17 - Substance & Tx. History Hx Alcohol Use: Yes Hx Substance Use: Yes Substance Use Type: Alcohol, Heroin Hx Substance Use Treatment: Yes ([facility] 05/19/17 -05/21/17 left AMA ) - Substances Abused Heroin Route: Injection Frequency: Daily Amount used: 4 - 5 bags Age of first use: 35 Date of Last Use: 11/30/17 Alcohol Route: Oral Frequency: Daily Amount used: 3 x 24 oz +1/2 pint liquor Age of first use: 11 Date of Last Use: 11/30/17 Family Disease History - Family Disease History Family Disease History: Heart Disease: Son ( ), [place]: Father (), Mother (), Other: Father, Son Admission Physical Exam [facility] - Vital Signs Vital Signs: Vital Signs - 24 hr 12/01/17 18:11 Temperature 98.6 F Pulse Rate 82 Respiratory 18 Rate Blood Pressure 108/67 - Physical General Appearance: Yes: Disheveled, Mild Distress, Thin, Sweating, Anxious HEENTM: Yes: EOMI, Hearing grossly Normal, Normal ENT Inspection, Normocephalic , Normal Voice, SHIRIN, Pharynx Normal, Tm's normal, Nasal Congestion Respiratory: Yes: Chest Non-Tender, Lungs Clear, Normal Breath Sounds, No Respiratory Distress, No Accessory Muscle Use Neck: Yes: Within Normal Limits Breast: Yes: Breast Exam Deferred Cardiology: Yes: Regular Rhythm, Regular Rate Abdominal: Yes: Normal Bowel Sounds, Non Tender, Flat, Soft Genitourinary: Yes: Within Normal Limits Back: Yes: Normal Inspection Musculoskeletal: Yes: full range of Motion, Gait Steady, Pelvis Stable, Back pain Extremities: Yes: Normal Capillary Refill, Normal Inspection, Normal Range of Motion Neurological: Yes: program arranger II-XII NML intact, Fully Oriented, Alert, Motor Strength 5/5, Normal Response, Depressed Affect Integumentary: Yes: Normal Color, Warm, Diaphoresis Lymphatic: Yes: Within Normal Limits - Diagnostic (1) Alcohol dependence with uncomplicated withdrawal Current Visit: Yes Status: Acute (2) GERD (gastroesophageal reflux disease) Current Visit: Yes Status: Chronic Qualifiers: Esophagitis presence: without esophagitis Qualified Code(s): K21.9 - Gastro -esophageal reflux disease without esophagitis (3) Nicotine dependence Current Visit: Yes Status: Acute Qualifiers: Nicotine product type: cigarettes Substance use status: uncomplicated Qualified Code(s): F17.210 - Nicotine dependence, cigarettes, uncomplicated (4) Opioid dependence with withdrawal Current Visit: Yes Status: Acute (5) Weight loss Current Visit: No Status: Acute (6) Alcoholic cirrhosis of liver Current Visit: Yes Status: Chronic Qualifiers: Ascites presence: without ascites Qualified Code(s): K70.30 - Alcoholic cirrhosis of liver without ascites Cleared for Admission [facility] - Detox or Rehab [facility] Level of Care: Medically Managed Detox Regimen/Protocol: Methadone/Librium BHS Breath Alcohol Content Breath Alcohol Content: 0.042 Urine Drug Screen - Results Drug Screen Negative: No Urine Drug Screen Results: OXY-Oxycodone, FEN-Fentanyl
[2017-12-01] MEDS ORDERED: MAG HYDROX/AL HYDROX/SIMETH 30 ML UNIT-DOSE CUP PO PRN (20:30)
[2017-12-01] MEDS ORDERED: NICOTINE POLACRILEX 2 MG GUM BC PRN (20:30)
[2017-12-01] MEDS ORDERED: IBUPROFEN 400 MG TABLET (FP) PO PRN (20:30)
[2017-12-01] MEDS ORDERED: MAGNESIUM HYDROX 2400MG/30ML ORAL SUSPENSION 30 ML CUP PO PRN (20:30)
[2017-12-01] MEDS ORDERED: guaiFENesin/D-METHORPHAN HB 10 ML UNIT-DOSE CUPS PO PRN (20:30)
[2017-12-01] MEDS ORDERED: ACETAMINOPHEN 325 MG TABLET (FP) PO PRN (20:30)
[2017-12-01] MEDS ORDERED: P-EPHED 60MG/TRIPROLIDI 2.5MG TABLET PO PRN (20:30)
[2017-12-01] MEDS ORDERED: METHADONE HCL 10 MG TABLET (FOR DETOX USE ONLY) PO ONE ×2 (20:30→23:00)
[2017-12-01] MEDS ORDERED: MENTHOL/PHENOL 1 EACH UD MM PRN (20:30)
[2017-12-01] MEDS ORDERED: LOPERAMIDE HCL 2 MG CAPSULE PO PRN (20:30)
[2017-12-01] MEDS ORDERED: chlordiazePOXIDE HCL 25 MG CAPSULE PO PRN (20:30)
[2017-12-01] MEDS ORDERED: MAGNESIUM CITRATE 300 ML BOTTLE PO PRN (20:30)
[2017-12-01] MEDS ORDERED: MELATONIN 5 MG TABLETS PO PRN (22:00)
[2017-12-01] MEDS: chlordiazePOXIDE HCL 25 MG CAPSULE PO SCH (22:40)
[2017-12-01] MEDS: THIAMINE HCL 100 MG TABLET (FP) PO SCH (22:41)
[2017-12-02 00:38] LABS: URINE APPEARANCE CLEAR; URINE BILIRUBIN NEGATIVE (<2.0 mg/dL); URINE COLOR YELLOW; URINE GLUCOSE (UA) NEGATIVE (NEGATIVE); URINE KETONE NEGATIVE (NEGATIVE); URINE LEUK ESTERASE NEGATIVE (NEGATIVE); URINE NITRITE NEGATIVE (NEGATIVE); URINE PROTEIN NEGATIVE (NEGATIVE)
[2017-12-02] MEDS: chlordiazePOXIDE HCL 25 MG CAPSULE PO SCH ×4 (05:48→22:34)
[2017-12-02] MEDS ORDERED: METHADONE HCL 10 MG TABLET (FOR DETOX USE ONLY) PO SCH (10:00)
[2017-12-02] MEDS ORDERED: TAMSULOSIN HCL 0.4 MG CAP PO SCH (10:00)
[2017-12-02] MEDS: PRENATAL VITAMINS W/ FOLIC ACID TABLET (FP) PO SCH (10:48)
[2017-12-02] MEDS: NICOTINE 14 MG/24 HOURS TOPICAL PATCH TD SCH (10:48)
--- NOTE | 2017-12-02 13:56 | PN ---
[facility] CIWA - CIWA Score Nausea/Vomitin Muscle Tremors: 4-Moderate,w/Arms Extend Anxiety: 4-Mod. Anxious/Guarded Agitation: 4-Moderately Restless Paroxysmal Sweats: 3 Orientation: 0-Oriented Tacttile Disturbances: 0-None Auditory Disturbances: 0-None Visual Disturbances: 0-None Headache: 0-None Present CIWA-Ar Total Score: 17 S COWS - Scale Resting Pulse: 0= [place] 80 or Below Sweatin= Chills/Flushing Restless Observation: 3= Extraneous Movement Pupil Size: 0= Normal to Room Light Bone or Joint Aches: 2= Severe Diffuse Aches Runny Nose/ Eye Tearin= Runny Nose/Eyes GI Upset > 30mins: 2= Nausea/Diarrhea Tremor Observation of Outstretched Hands: 2= Slight Tremor Visible Yawning Observation: 1= 1-2x During Session Anxiety or Irritability: 2=Irritable/Anxious Goose Flesh Skin: 0=Smooth Skin COWS Score: 15 [facility] Progress Note (SOAP) Subjective: Tremor, chills Objective: 12/02/17 13:54 Last Vital Signs Temp Pulse Resp BP Pulse Ox 98.9 F 76 18 /64 12/02/17 09:37 12/02/17 09:37 12/02/17 09:37 12/02/17 09:37 Hypotension noted: b/p /64 Laboratory Tests 12/01/17 23:10 Urine Color Yellow Urine Appearance Clear Urine pH 6.0 Ur Specific [place] 1.010 Urine Protein Negative Urine Glucose (UA) Negative Urine Ketones Negative Urine Blood Negative Urine Nitrite Negative Urine Bilirubin Negative Urine Urobilinogen 2.0 Ur Leukocyte Esterase Negative UA noted: CBC, CMP, RPR in progress Assessment: 12/02/17 13:56 Withdrawal symptoms Plan: Continue detox Encouraged PO water intake
[2017-12-02 14:21] LABS: HEMATOCRIT 39.9 % (35.4-49); HEMOGLOBIN 13.2 GM/dL (11.7-16.9); MCH 31.7 pg (25.7-33.7); MEAN CELL VOLUME 96.1 fl (80-96); PLATELET COUNT 116 K/MM3 (134-434); RBC 4.15 M/mm3 (4.00-5.60); RDW 12.2 % (11.9-15.9); WHITE BLOOD COUNT 5.3 K/mm3 (4.0-10.0)
[2017-12-02 14:37] LABS: ALBUMIN 2.7 g/dl (3.4-5.0); ALK PHOS 144 U/L (45-117); ANION GAP 6 MMOL/L (8-16); BILIRUBIN,TOTAL 0.4 mg/dL (0.2-1); BLOOD UREA NITROGEN 11 mg/dL (7-18); CALCIUM 8.8 mg/dL (8.5-10.1); CHLORIDE 104 mmol/L (98-107); CO2 29 mmol/L (21-32); CREATININE 0.8 mg/dL (0.55-1.3); GLUCOSE,RANDOM 108 mg/dL (74-106); SGOT/AST 125 U/L (15-37); SGPT/ALT 109 U/L (13-61); SODIUM 140 mmol/L (136-145); TOT PROT 6.7 g/dl (6.4-8.2)
--- NOTE | 2017-12-02 16:39 | CONSULT ---
[facility] Psychiatric Consult - Data Date of interview: 12/02/17 Admission source: [facility] Identifying data: Patient is a 62 year old single male, father of two, unemployed, and currently residing in a fdc. This is one of multiple admissions for patient. Patient admitted to for alcohol and opioid dependence. Substance Abuse History: - Smoking Cessation. Smoking history: Current every day smoker. Have you smoked in the past 12 months: Yes. Aproximately how many cigarettes per day: 20. Cigars Per Day: 0. Hx Chewing Tobacco Use: No. Initiated information on smoking cessation: Yes. 'Breaking Loose' booklet given : 12/01/17. - Substance & Tx. History. Hx Alcohol Use: Yes. Hx Substance Use : Yes. Substance Use Type: Alcohol, Heroin. Hx Substance Use Treatment: Yes ( [facility] 05/19/17 -05/21/17 left [facility] ). - Substances Abused. Heroin. Route: Injection. Frequency: Daily. Amount used: 4 - 5 bags. Age of first use: 35. Date of Last Use: 11/30/17. Alcohol. Route: Oral. Frequency: Daily. Amount used: 3 x 24 oz +1/2 pint liquor. Age of first use: 11. Date of Last Use: 11/30/17 Medical History: Arthritis of right knee + right shoulder,chronic joint pain, hepatitis C,cirrhosis of the liver,antecedent of gonorrhea (age 20) and a distant history of left inguinal herniorraphy (age 15) + tonsillectomy (age 14). Psychiatric History: Patient denies h/o psychiatric hospitalization, outpatient care, and suicide attempt. Mental Status Exam - Mental Status Exam Alert and Oriented to: Time, Place, Person Cognitive Function: Good Patient Appearance: Well Groomed Mood: Euthymic Affect: Mood Congruent Patient Behavior: Cooperative Speech Pattern: Clear Voice Loudness: Moderately Soft/Quiet Thought Process: Intact, Goal Oriented Thought Disorder: Not Present Hallucinations: Denies Suicidal Ideation: Denies Homicidal Ideation: Denies Insight/Judgement: Poor Sleep: Fair Appetite: Fair Muscle strength/Tone: Normal Gait/Station: Normal Psychiatric Findings - Problem List ([place] 1, 2,3) (1) Alcohol dependence with uncomplicated withdrawal Current Visit: Yes Status: Acute (2) Opioid dependence with withdrawal Current Visit: Yes Status: Acute (3) Nicotine dependence Current Visit: Yes Status: Chronic Qualifiers: Nicotine product type: cigarettes Substance use status: uncomplicated Qualified Code(s): F17.210 - Nicotine dependence, cigarettes, uncomplicated (4) Drug-induced mood disorder Current Visit: Yes Status: Suspected - Initial Treatment Plan Initial Treatment Plan: Psychoeducation provided. Detoxification in progress. Observation.
[2017-12-02] MEDS: THIAMINE HCL 100 MG TABLET (FP) PO SCH (22:33)
[2017-12-02] MEDS: TAMSULOSIN HCL 0.4 MG CAP PO SCH (22:34)
[2017-12-03] MEDS: chlordiazePOXIDE HCL 25 MG CAPSULE PO SCH ×3 (05:46→17:33)
[2017-12-03] MEDS: PRENATAL VITAMINS W/ FOLIC ACID TABLET (FP) PO SCH (10:41)
[2017-12-03] MEDS: METHADONE HCL 5 MG TABLET (FOR DETOX USE ONLY) PO SCH (10:41)
[2017-12-03] MEDS: TAMSULOSIN HCL 0.4 MG CAP PO SCH (10:41)
[2017-12-03] MEDS: NICOTINE 14 MG/24 HOURS TOPICAL PATCH TD SCH (10:42)
--- NOTE | 2017-12-03 15:14 | PN ---
[facility] CIWA - CIWA Score Nausea/Vomitin Muscle Tremors: 3 Anxiety: 3 Agitation: 3 Paroxysmal Sweats: 3 Orientation: 0-Oriented Tacttile Disturbances: 1-Very Mild Itch/Numbness Auditory Disturbances: 0-None Visual Disturbances: 0-None Headache: 0-None Present CIWA-Ar Total Score: 15 BHS COWS - Scale Resting Pulse: 0= [place] 80 or Below Sweatin= Chills/Flushing Restless Observation: 3= Extraneous Movement Pupil Size: 0= Normal to Room Light Bone or Joint Aches: 2= Severe Diffuse Aches Runny Nose/ Eye Tearin= Runny Nose/Eyes GI Upset > 30mins: 2= Nausea/Diarrhea Tremor Observation of Outstretched Hands: 2= Slight Tremor Visible Yawning Observation: 1= 1-2x During Session Anxiety or Irritability: 2=Irritable/Anxious Goose Flesh Skin: 0=Smooth Skin COWS Score: 15 S Progress Note (SOAP) Subjective: Sweating, chills, interrupted sleep Objective: 12/03/17 15:12 Last Vital Signs Temp Pulse Resp BP Pulse Ox 97.4 F L 69 18 93/64 12/03/17 13:53 12/03/17 13:53 12/03/17 13:53 12/03/17 13:53 Hypotension noted Laboratory Tests 12/01/17 12/02/17 12/02/17 23:10 07:15 07:15 WBC 5.3 RBC 4.15 Hgb 13.2 Hct 39.9 MCV 96.1 H MCH 31.7 MCHC 33.0 RDW 12.2 Plt Count 116 L MPV 10.0 Sodium 140 Potassium 4.0 Chloride 104 Carbon Dioxide 29 Anion Gap 6 L BUN 11 Creatinine 0.8 Creat Clearance w eGFR > 60 Random Glucose 108 H Calcium 8.8 Total Bilirubin 0.4 AST 125 H ALT 109 H Alkaline Phosphatase 144 H Total Protein 6.7 Albumin 2.7 L Urine Color Yellow Urine Appearance Clear Urine pH 6.0 Ur Specific [place] 1.010 Urine Protein Negative Urine Glucose (UA) Negative Urine Ketones Negative Urine Blood Negative Urine Nitrite Negative Urine Bilirubin Negative Urine Urobilinogen 2.0 Ur Leukocyte Esterase Negative RPR Titer 12/02/17 07:15 WBC RBC Hgb Hct MCV MCH MCHC RDW Plt Count MPV Sodium Potassium Chloride Carbon Dioxide Anion Gap BUN Creatinine Creat Clearance w eGFR Random Glucose Calcium Total Bilirubin AST ALT Alkaline Phosphatase Total Protein Albumin Urine Color Urine Appearance Urine pH Ur Specific [place] Urine Protein Urine Glucose (UA) Urine Ketones Urine Blood Urine Nitrite Urine Bilirubin Urine Urobilinogen Ur Leukocyte Esterase RPR Titer Nonreactive Labs reviewed Assessment: 12/03/17 15:13 Withdrawal symptoms Plan: Continue detox Encouraged PO water intake
[2017-12-03] MEDS: THIAMINE HCL 100 MG TABLET (FP) PO SCH (22:30)
[2017-12-03] MEDS: chlordiazePOXIDE 5 MG CAPSULE PO SCH (22:30)
[2017-12-04] MEDS: chlordiazePOXIDE 5 MG CAPSULE PO SCH ×2 (05:30→10:25)
[2017-12-04 09:51] VITALS: BP 97/61; PULSE 86; TEMP 100.4
[2017-12-04] MEDS: METHADONE HCL 5 MG TABLET (FOR DETOX USE ONLY) PO SCH (10:24)
[2017-12-04] MEDS: PRENATAL VITAMINS W/ FOLIC ACID TABLET (FP) PO SCH (10:25)
[2017-12-04] MEDS: NICOTINE 14 MG/24 HOURS TOPICAL PATCH TD SCH (10:25)
[2017-12-04] MEDS: TAMSULOSIN HCL 0.4 MG CAP PO SCH (10:25)
--- NOTE | 2017-12-04 11:41 | DS ---
[facility] Detox Discharge Summary Admission Date: 12/01/17 Discharge Date: 12/04/17 - History Present History: Alcohol Dependence, Opioid Dependence Additional Comments: Patient requested to leave AMA stating he has to leave now because he is feeling better. Staff encouraged patient to complete detox but without any success. Patient instructed to call 911 if feeling sick and to see his PCP within 3 days. Pertinent Past History: BPH Alcohol dependence Nicotine dependence Opioid dependence Cirrhosis of liver GERD - Physical Exam Results Vital Signs: Vital Signs Temperature 100.4 F H 12/04/17 09:50 Pulse Rate 86 12/04/17 09:50 Respiratory Rate 20 12/04/17 09:50 Blood Pressure 97/61 12/04/17 09:50 O2 Sat by Pulse Oximetry (%) Pertinent Admission Physical Exam Findings: Withdrawal symptoms Laboratory Tests 12/01/17 12/02/17 12/02/17 23:10 07:15 07:15 WBC 5.3 RBC 4.15 Hgb 13.2 Hct 39.9 MCV 96.1 H MCH 31.7 MCHC 33.0 RDW 12.2 Plt Count 116 L MPV 10.0 Sodium 140 Potassium 4.0 Chloride 104 Carbon Dioxide 29 Anion Gap 6 L BUN 11 Creatinine 0.8 Creat Clearance w eGFR > 60 Random Glucose 108 H Calcium 8.8 Total Bilirubin 0.4 AST 125 H ALT 109 H Alkaline Phosphatase 144 H Total Protein 6.7 Albumin 2.7 L Urine Color Yellow Urine Appearance Clear Urine pH 6.0 Ur Specific [place] 1.010 Urine Protein Negative Urine Glucose (UA) Negative Urine Ketones Negative Urine Blood Negative Urine Nitrite Negative Urine Bilirubin Negative Urine Urobilinogen 2.0 Ur Leukocyte Esterase Negative RPR Titer 12/02/17 07:15 WBC RBC Hgb Hct MCV MCH MCHC RDW Plt Count MPV Sodium Potassium Chloride Carbon Dioxide Anion Gap BUN Creatinine Creat Clearance w eGFR Random Glucose Calcium Total Bilirubin AST ALT Alkaline Phosphatase Total Protein Albumin Urine Color Urine Appearance Urine pH Ur Specific [place] Urine Protein Urine Glucose (UA) Urine Ketones Urine Blood Urine Nitrite Urine Bilirubin Urine Urobilinogen Ur Leukocyte Esterase RPR Titer Nonreactive Labs reviewed - Medication Discharge Medications: Ambulatory Orders Tamsulosin HCl [Flomax -] 0.4 mg PO DAILY 12/01/17 - Diagnosis (1) BPH (benign prostatic hyperplasia) Current Visit: Yes Status: Chronic (2) Alcohol dependence with uncomplicated withdrawal Current Visit: Yes Status: Acute (3) Nicotine dependence Current Visit: Yes Status: Chronic Qualifiers: Nicotine product type: cigarettes Substance use status: uncomplicated Qualified Code(s): F17.210 - Nicotine dependence, cigarettes, uncomplicated (4) Opioid dependence with withdrawal Current Visit: Yes Status: Acute (5) Alcoholic cirrhosis of liver Current Visit: Yes Status: Chronic Qualifiers: Ascites presence: without ascites Qualified Code(s): K70.30 - Alcoholic cirrhosis of liver without ascites (6) GERD (gastroesophageal reflux disease) Current Visit: Yes Status: Chronic Qualifiers: Esophagitis presence: without esophagitis Qualified Code(s): K21.9 - Gastro -esophageal reflux disease without esophagitis - AMA Did Patient Leave Against Medical Advice: Yes (Patient instructed to call 911 if any withdrawal symptoms or feeling sick)
[2017-12-04] MEDS ORDERED: chlordiazePOXIDE HCL 10 MG CAPSULE PO SCH (23:00)
[2017-12-05] MEDS ORDERED: METHADONE HCL 10 MG TABLET (FOR DETOX USE ONLY) PO SCH (10:00)
[2017-12-06] MEDS ORDERED: METHADONE HCL 5 MG TABLET (FOR DETOX USE ONLY) PO SCH (06:00)
== END 2017-12-04 11:20 | disposition left against medical advice (07) | DRG 770 ==
LOC: YASAS 15:22 → Y3N 20:41
PROC: HZ2ZZZZ Detoxification Services for Substance Abuse Treatment (ICD-10-PCS; principal; 2017-12-01)
DX: F11.23 Opioid dependence with withdrawal (principal); F10.230 Alcohol dependence with withdrawal, uncomplicated; F17.210 Nicotine dependence, cigarettes, uncomplicated; F19.24 Other psychoactive substance dependence with psychoactive substance-induced mood disorder; K70.30 Alcoholic cirrhosis of liver without ascites; K21.9 Gastro-esophageal reflux disease without esophagitis; N40.0 Benign prostatic hyperplasia without lower urinary tract symptoms; B18.2 Chronic viral hepatitis C; R63.4 Abnormal weight loss; Z68.23 Body mass index [BMI] 23.0-23.9, adult; Z86.19 Personal history of other infectious and parasitic diseases
CPT/HCPCS: 36415; 80053; 81003; 85027; 86593

== ENCOUNTER 2018-10-04 15:45 | Inpatient (IN) | payer OTHER ==
[2018-10-04 18:25] VITALS: BMI 22.2
--- NOTE | 2018-10-04 18:28 | PN ---
- Vital Signs Vital Signs: Vital Signs - 24 hr 10/04/18 17:55 Temperature 101.4 F H Pulse Rate 83 Respiratory 18 Rate Blood Pressure 102/57 L Medical/Surgical History - Patient Medical History Hx Anemia: No Hx Asthma: No Hx Chronic Obstructive Pulmonary Disease (COPD): No Hx Cancer: No Hx Cardiac Disorders: No Hx Congestive Heart Failure: No Hx Hypertension: No Hx Hypercholesterolemia: No Hx Pacemaker: No HX Cerebrovascular Accident: No Hx Seizures: No Hx Dementia: No Hx Diabetes: No Hx Gastrointestinal Disorders: No Hx Liver Disease: Yes (cirrohosis of liver 1986; no treatment) Hx Genitourinary Disorders: No Hx Sexually Transmitted Disorders: Yes (gonorrhea at age 20) Hx Renal Disease (ESRD): No Hx Thyroid Disease: No Hx Human Immunodeficiency Virus (HIV): No (lasted 2016) Hx Hepatitis C: Yes Hx Depression: Yes Hx Suicide Attempt: No Hx Bipolar Disorder: No Hx Schizophrenia: No - Patient Surgical History Past Surgical History: Yes Hx Neurologic Surgery: No Hx Cataract Extraction: No Hx Cardiac Surgery: No Hx Lung Surgery: No Hx Breast Surgery: No Hx Breast Biopsy: No Hx Abdominal Surgery: No Hx Appendectomy: No Hx Cholecystectomy: No Hx Genitourinary Surgery: No Hx Section: No Hx Orthopedic Surgery: No Other Surgical History: tonsilectomy 14 years old , left ingrunal 15 years old Anesthesia Reaction: No - Substances abused Alcohol Substance route: Oral Frequency: Daily Amount used: 3/4 CANS 240Z BEER Age of first use: 20 Date of last use: 10/04/18 Heroin Substance route: Injection Frequency: Daily Amount used: 3- 4BAGS Age of first use: 35 Date of last use: 10/04/18 Breathalyzer - Breathalyzer Breathalyzer: 0.069 Urine Drug Screen - Test Device Lot number: [id number] Expiration date: 07/09/20 - Control Is test valid?: Yes - Results Drug screen NEGATIVE: No Urine drug screen results: FEN-Fentanyl, MOP-Opiates, OXY-Oxycodone, MTD- Methadone
--- NOTE | 2018-10-04 18:41 | HP ---
"COWS - Scale Resting Pulse: 1= [place] 81-100 Sweatin=Flushed/Facial Moisture Restless Observation: 1= Difficult to Sit Still Pupil Size: 1= Pupils >than Normal (Puplis = 3 mm) Bone or Joint Aches: 0= None Runny Nose/ Eye Tearin= Nasal Congestion GI Upset > 30mins: 2= Nausea/Diarrhea Tremor Observation: 2= Slight Tremor Visible Yawning Observation: 0= None Anxiety or Irritability: 4=Extreme Anxiety Goose Flesh Skin: 0=Smooth Skin COWS Score: 14 CIWA Score Nausea/Vomitin Muscle Tremors: 4-Moderate,w/Arms Extend Anxiety: 3 Agitation: 4-Moderately Restless Paroxysmal Sweats: 3 (Increased facial mositure) Orientation: 0-Oriented Tacttile Disturbances: 0-None Auditory Disturbances: 0-None Visual Disturbances: 0-None Headache: 1-Very Mild CIWA-Ar Total Score: 18 - Admission Criteria OAS Guidelines: Admission for Medically Managed Detox: Requires at least one of the followin. CIWA greater than 12 2. Seizures within the past 24 hours 3. Delirium tremens within the past 24 hours 4. Hallucinations within the past 24 hours 5. Acute intervention needed for co occurring medical disorder 6. Acute intervention needed for co occurring psychiatric disorder 7. Severe withdrawal that cannot be handled at a lower level of care (continued vomiting, continued diarrhea, abnormal vital signs) requiring intravenous medication and/or fluids 8. Patient presents the following: CIWA greater than 12 Admission Criteria Met: Admission criteria met Admission ROS [facility] Chief Complaint: I'm here for alcohol and heroin detox. I'm feeling sick. Allergies/Adverse Reactions: Allergies Allergy/AdvReac Type Severity Reaction Status Date / Time No Known Allergies Allergy Verified 10/04/18 17:54 History of Present Illness: 63 yo w/ opioid and alcohol withdrawal seeking detox. Heroin use began at age 35. Current use is 2-3 bags/day IV. States consistent for past 3-4 months. States does not share needles or works. [facility] reuses needles. Last overdose 10 years ago. Has a Narcan Kit. [facility] may be interested in starting a MMTP. Alcohol use began at age 20. Currently drinks 3-4 24-40 oz beers daily x consistently for years. Nicotine use began at age 89. Currently smokes 1PPD. Denies hx of seizures or blackouts. Denies any significant period of sobriety. PMHX: Hep C; Cirrhosis; BPH depression, weight loss (r/t bad food) MHHx: Insomnia. Denies depression. Denies thoughts of harming self or others. SHx: Patient currently domiciled and unemployed. Search Terms: Pedro Galarza, 1955 Search Date: 10/04/2018 06:39:54 PM The Drug Utilization Report below displays all of the controlled substance prescriptions, if any, that your patient has filled in the last twelve months. The information displayed on this report is compiled from pharmacy submissions to the Department, and accurately reflects the information as submitted by the pharmacies. This report was requested by: Yeimy Peace | Reference #: [id number] There are no results for the search terms that you entered. Exam Limitations: No Limitations - Ebola screening Have you traveled outside of the country in the last 21 days: No Have you had contact with anyone from an Ebola affected area: No Have you been sick,other than usual withdrawal symptoms: No (Denies recent measles exposure) Do you have a fever: Yes - Review of Systems Constitutional: Chills, Diaphoresis, Changes in sleep (Difficulty dalling and staying asleep. Not on meds), Unintentional Wgt. Loss EENT: reports: Blurred Vision (reading glasses), Nose Congestion, Dental Problems (Very few teeth. Chews and swallows ok.) Respiratory: reports: No Symptoms reported Cardiac: reports: No Symptoms Reported GI: reports: Diarrhea (crampy, gassy, watery brownish), Nausea (w/ urge to vomit ) : reports: Other (Difficulty starting and stopping flow. Not on BPH meds) Musculoskeletal: reports: Joint Pain ((R) shoulder w/ inability to raise arm above head; sometimes (L) knee. No pain at this time) Integumentary: reports: Other (Abscesses both arms from injection use) Neuro: reports: Headache (top of head, mild), Tremors Endocrine: reports: No Symptoms Reported Hematology: reports: No Symptoms Reported Psychiatric: reports: Judgement Intact, Mood/Affect Appropiate, Orientated x3, Agitated, Anxious Patient History - Patient Medical History Hx Anemia: No Hx Asthma: No Hx Chronic Obstructive Pulmonary Disease (COPD): No Hx Cancer: No Hx Cardiac Disorders: No Hx Congestive Heart Failure: No Hx Hypertension: No Hx Hypercholesterolemia: No Hx Pacemaker: No HX Cerebrovascular Accident: No Hx Seizures: No Hx Dementia: No Hx Diabetes: No Hx Gastrointestinal Disorders: No Hx Liver Disease: Yes (cirrohosis of liver 1987; no treatment) Hx Genitourinary Disorders: No Hx Sexually Transmitted Disorders: Yes (gonorrhea at age 20) Hx Renal Disease (ESRD): No Hx Thyroid Disease: No Hx Human Immunodeficiency Virus (HIV): No (lasted 2017) Hx Hepatitis C: Yes Hx Depression: Yes Hx Suicide Attempt: No Hx Bipolar Disorder: No Hx Schizophrenia: No - Patient Surgical History Past Surgical History: Yes Hx Neurologic Surgery: No Hx Cataract Extraction: No Hx Cardiac Surgery: No Hx Lung Surgery: No Hx Breast Surgery: No Hx Breast Biopsy: No Hx Abdominal Surgery: No Hx Appendectomy: No Hx Cholecystectomy: No Hx Genitourinary Surgery: No Hx Section: No Hx Orthopedic Surgery: No Other Surgical History: tonsilectomy 14 years old , left ingrunal 15 years old Anesthesia Reaction: No - PPD History Previous Implant?: Yes Documented Results: Negative w/proof Implanted On Prior R Admission?: Yes Date: 12/03/17 Results: 0 mm PPD to be Administered?: No - Smoking Cessation Smoking history: Current every day smoker Have you smoked in the past 12 months: Yes Aproximately how many cigarettes per day: 20 Cigars Per Day: 0 Hx Chewing Tobacco Use: No Initiated information on smoking cessation: Yes 'Breaking Loose' booklet given: 10/04/18 - Substance & Tx. History Hx Alcohol Use: Yes Hx Substance Use: Yes Substance Use Type: Alcohol, Heroin Hx Substance Use Treatment: Yes (detox, rehab, past OTP) - Substances abused Alcohol Substance route: Oral Frequency: Daily Amount used: 3/4 CANS 240Z BEER Age of first use: 20 Date of last use: 10/04/18 Heroin Substance route: Injection Frequency: Daily Amount used: 3- 4BAGS Age of first use: 35 Date of last use: 10/04/18 Family Disease History - Family Disease History Family Disease History: Heart Disease: Son ( ), CA: Father (), Mother (), Other: Father, Son Admission Physical Exam BHS - Vital Signs Vital Signs: Vital Signs - 24 hr 10/04/18 17:55 Temperature 101.4 F H Pulse Rate 83 Respiratory 18 Rate Blood Pressure 102/57 L - Physical General Appearance: Yes: Mild Distress, Thin, Tremorous (Increased tremors of hands w/ arms elevated), Sweating (Increased facial moisture) HEENTM: Yes: EOMI, Hearing grossly Normal, Normocephalic, Normal Voice, SHIRIN ( Puplis = 3 mm), Pharynx Normal, Nasal Congestion Respiratory: Yes: Lungs Clear, Normal Breath Sounds, No Respiratory Distress, Other (Cough productive of clear whitish phlegm) Neck: Yes: No masses,lesions,Nodules, Supple Breast: Yes: Breast Exam Deferred Cardiology: Yes: Regular Rhythm, Regular Rate, S1, S2 Abdominal: Yes: Non Tender, Flat, Soft Genitourinary: Yes: Hesitency Back: Yes: Within Normal Limits Musculoskeletal: Yes: Gait Steady, Joint Stiffness ((R) shoulder stiffness w/ arm elevation limited to 90 degrees) Extremities: Yes: Tremors (Increased tremors of hands w/ arms elevated), Other ( (R) leg varicose veins) 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 NML intact, Fully Oriented, Alert, Motor Strength 5/5, Normal Response Integumentary: Yes: Normal Color, Dry (Except for facial mositure), Warm, Diaphoresis (Increased facial moisture), Track Wolff (Track wolff arms and legs several w/ increased induration, warmth and tenderness) Lymphatic: Yes: Within Normal Limits - Diagnostic (1) Varicose vein of leg Current Visit: Yes Status: Chronic Qualifiers: Varicose vein complication: asymptomatic Laterality: right Qualified Code (s): I83.91 - Asymptomatic varicose veins of right lower extremity (2) Abscess of skin and subcutaneous tissue Current Visit: Yes Status: Acute Qualifiers: Site of cutaneous abscess: extremity Site of cutaneous abscess of extremity : upper extremity Laterality: unspecified laterality Qualified Code(s): L02.419 - Cutaneous abscess of limb, unspecified Comment: Both arms (3) Alcohol dependence with uncomplicated withdrawal Current Visit: Yes Status: Acute (4) Opioid dependence with withdrawal Current Visit: Yes Status: Acute (5) Weight loss Current Visit: Yes Status: Chronic (6) Arthritis Current Visit: Yes Status: Chronic Comment: (R) shoulder (7) BPH (benign prostatic hyperplasia) Current Visit: Yes Status: Chronic Qualifiers: Lower urinary tract symptom presence: unspecified whether lower urinary tract symptoms present Qualified Code(s): N40.0 - Benign prostatic hyperplasia without lower urinary tract symptoms (8) Nicotine dependence Current Visit: Yes Status: Chronic Qualifiers: Nicotine product type: cigarettes Substance use status: uncomplicated Qualified Code(s): F17.210 - Nicotine dependence, cigarettes, uncomplicated (9) History of intravenous drug abuse Current Visit: Yes Status: Chronic Comment: Multiple track wolff and abscesses Cleared for Admission [facility] - Detox or Rehab [facility] Level of Care: Medically Managed Detox Regimen/Protocol: Methadone/Librium Claeared for Rehab Admission: No Breathalyzer - Breathalyzer Breathalyzer: 0.069 Urine Drug Screen - Test Device Lot number: [id number] Expiration date: 07/09/20 - Control Is test valid?: Yes - Results Drug screen NEGATIVE: No Urine drug screen results: FEN-Fentanyl, MOP-Opiates, OXY-Oxycodone, MTD- Methadone Inpatient Rehab Admission - Rehab Decision to Admit Inpatient rehab admission?: No"
[2018-10-04] MEDS ORDERED: ACETAMINOPHEN 325 MG TABLET (FP) PO PRN ×2 (19:15)
[2018-10-04] MEDS ORDERED: MAGNESIUM HYDROX 2400MG/30ML ORAL SUSPENSION 30 ML CUP PO PRN (19:15)
[2018-10-04] MEDS ORDERED: BISMUTH SUBSALICYLATE 524 MG/30 ML UD PO PRN (19:15)
[2018-10-04] MEDS ORDERED: MENTHOL/PHENOL 1 EACH UD MM PRN (19:15)
[2018-10-04] MEDS ORDERED: chlordiazePOXIDE HCL 10 MG CAPSULE PO PRN (19:15)
[2018-10-04] MEDS ORDERED: cloNIDine HCL 0.1 MG TABLET PO PRN (19:15)
[2018-10-04] MEDS ORDERED: METHADONE HCL 10 MG TABLET (FOR DETOX USE ONLY) PO ONE (19:15)
[2018-10-04] MEDS ORDERED: MAGNESIUM CITRATE 300 ML BOTTLE PO PRN (19:15)
[2018-10-04] MEDS ORDERED: MAG HYDROX/AL HYDROX/SIMETH 30 ML UNIT-DOSE CUP PO PRN (19:15)
[2018-10-04] MEDS ORDERED: NICOTINE POLACRILEX 2 MG GUM BUC PRN (19:15)
[2018-10-04] MEDS ORDERED: IBUPROFEN 400 MG TABLET (FP) PO PRN (19:15)
[2018-10-04] MEDS ORDERED: NALOXONE HCL 0.4 MG/ML VIAL IM PRN (19:15)
[2018-10-04] MEDS ORDERED: METHOCARBAMOL 500 MG TABLET PO PRN (19:15)
[2018-10-04] MEDS: guaiFENesin 200 MG/10 ML 10 ML UNIT-DOSE CUPS PO SCH (20:53)
[2018-10-04] MEDS: chlordiazePOXIDE HCL 25 MG CAPSULE PO SCH (20:53)
[2018-10-04] MEDS: MELATONIN 5 MG TABLETS PO PRN (20:53)
[2018-10-04] MEDS: THIAMINE HCL 100 MG TABLET (FP) PO SCH (22:34)
[2018-10-04] MEDS: CEPHALEXIN MONOHYDRATE 500 MG CAPSULE (UD) PO SCH (23:25)
[2018-10-05] MEDS: guaiFENesin 200 MG/10 ML 10 ML UNIT-DOSE CUPS PO SCH ×2 (01:44→19:43)
[2018-10-05] MEDS: CEPHALEXIN MONOHYDRATE 500 MG CAPSULE (UD) PO SCH ×4 (05:45→23:18)
[2018-10-05] MEDS: chlordiazePOXIDE HCL 25 MG CAPSULE PO SCH ×3 (05:45→21:20)
[2018-10-05] MEDS ORDERED: METHADONE HCL 5 MG TABLET (FOR DETOX USE ONLY) PO ONE (10:00)
[2018-10-05] MEDS: NICOTINE 21 MG/24 HOURS TOPICAL PATCH TD SCH (10:21)
[2018-10-05] MEDS: PRENATAL VITAMINS W/ FOLIC ACID TABLET (FP) PO SCH (10:21)
[2018-10-05 11:51] LABS: ALBUMIN 2.9 g/dl (3.4-5.0); BILIRUBIN,TOTAL 0.6 mg/dL (0.2-1); BLOOD UREA NITROGEN 9.5 mg/dL (7-18); CALCIUM 9.2 mg/dL (8.5-10.1); CREATININE 0.7 mg/dL (0.55-1.3); POTASSIUM 4.2 mmol/L (3.5-5.1); TOT PROT 7.7 g/dl (6.4-8.2)
[2018-10-05 11:53] LABS: HEMATOCRIT 40.4 % (35.4-49); HEMOGLOBIN 13.6 GM/dL (11.7-16.9); MCHC 33.5 g/dl (32.0-35.9); MEAN CELL VOLUME 92.5 fl (80-96); RBC 4.37 M/mm3 (4.00-5.60); RDW 14.1 % (11.9-15.9)
--- NOTE | 2018-10-05 12:02 | PN ---
S CIWA - CIWA Score Nausea/Vomitin Muscle Tremors: 2 Anxiety: 2 Agitation: 2 Paroxysmal Sweats: 1-Minimal Palms Moist Orientation: 0-Oriented Tacttile Disturbances: 1-Very Mild Itch/Numbness Auditory Disturbances: 0-None Visual Disturbances: 0-None Headache: 2-Mild CIWA-Ar Total Score: 12 BHS COWS - Scale Resting Pulse: 0= [place] 80 or Below Sweatin= Chills/Flushing Restless Observation: 1= Difficult to Sit Still Pupil Size: 1= Pupils >than Normal Bone or Joint Aches: 2= Severe Diffuse Aches Runny Nose/ Eye Tearin= Nasal Congestion GI Upset > 30mins: 2= Nausea/Diarrhea Tremor Observation of Outstretched Hands: 1= Tremor [place], Not Seen Yawning Observation: 1= 1-2x During Session Anxiety or Irritability: 2=Irritable/Anxious Goose Flesh Skin: 0=Smooth Skin COWS Score: 12 S Progress Note (SOAP) Subjective: alert,irritable,anxious,interrupted sleep,pain in the bosy anf back Objective: 10/05/18 12:00 Vital Signs Temperature 98.1 F 10/05/18 07:01 Pulse Rate 65 10/05/18 07:01 Respiratory Rate 17 10/05/18 07:01 Blood Pressure 99/59 L 10/05/18 07:01 O2 Sat by Pulse Oximetry (%) Laboratory Last Values Sodium 138 mmol/L (136-145) 10/05/18 07:30 Potassium 4.2 mmol/L (3.5-5.1) 10/05/18 07:30 Chloride 103 mmol/L (98-107) 10/05/18 07:30 Carbon Dioxide 29 mmol/L (21-32) 10/05/18 07:30 Anion Gap 5 MMOL/L (8-16) L 10/05/18 07:30 BUN 9.5 mg/dL (7-18) 10/05/18 07:30 Creatinine 0.7 mg/dL (0.55-1.3) 10/05/18 07:30 Est GFR (CKD-EPI)AfAm 118.05 10/05/18 07:30 Est GFR (CKD-EPI)NonAf 101.85 10/05/18 07:30 Random Glucose 92 mg/dL (74-106) 10/05/18 07:30 Calcium 9.2 mg/dL (8.5-10.1) 10/05/18 07:30 Total Bilirubin 0.6 mg/dL (0.2-1) 10/05/18 07:30 AST 96 U/L (15-37) H 10/05/18 07:30 ALT 66 U/L (13-61) H 10/05/18 07:30 Alkaline Phosphatase 165 U/L (45-117) H 10/05/18 07:30 Total Protein 7.7 g/dl (6.4-8.2) 10/05/18 07:30 Albumin 2.9 g/dl (3.4-5.0) L 10/05/18 07:30 other labs pending Assessment: 10/05/18 12:01 withdrawal symptom Plan: continue detox methadone and librium regimen
[2018-10-05 12:56] LABS: WHITE BLOOD COUNT 6.6 K/mm3 (4.0-10.0)
[2018-10-05] MEDS: THIAMINE HCL 100 MG TABLET (FP) PO SCH (22:20)
[2018-10-05] MEDS: MELATONIN 5 MG TABLETS PO PRN (22:22)
[2018-10-06] MEDS: chlordiazePOXIDE 5 MG CAPSULE PO SCH ×3 (06:27→21:18)
[2018-10-06] MEDS: CEPHALEXIN MONOHYDRATE 500 MG CAPSULE (UD) PO SCH ×4 (06:27→23:02)
[2018-10-06] MEDS: NICOTINE 21 MG/24 HOURS TOPICAL PATCH TD SCH (09:52)
[2018-10-06] MEDS: PRENATAL VITAMINS W/ FOLIC ACID TABLET (FP) PO SCH (09:53)
[2018-10-06] MEDS ORDERED: METHADONE HCL 10 MG TABLET (FOR DETOX USE ONLY) PO ONE (10:00)
--- NOTE | 2018-10-06 11:35 | PN ---
S CIWA - CIWA Score Nausea/Vomitin Muscle Tremors: 2 Anxiety: 2 Agitation: 2 Paroxysmal Sweats: No Perspiration Orientation: 0-Oriented Tacttile Disturbances: 0-None Auditory Disturbances: 0-None Visual Disturbances: 0-None Headache: 1-Very Mild CIWA-Ar Total Score: 9 BHS COWS - Scale Resting Pulse: 0= [place] 80 or Below Sweatin= Chills/Flushing Restless Observation: 1= Difficult to Sit Still Pupil Size: 1= Pupils >than Normal Bone or Joint Aches: 2= Severe Diffuse Aches Runny Nose/ Eye Tearin= Nasal Congestion GI Upset > 30mins: 2= Nausea/Diarrhea Tremor Observation of Outstretched Hands: 2= Slight Tremor Visible Yawning Observation: 1= 1-2x During Session Anxiety or Irritability: 2=Irritable/Anxious Goose Flesh Skin: 0=Smooth Skin COWS Score: 13 BHS Progress Note (SOAP) Subjective: alert,irritable,anxious,interrupted sleep,tremor,pain in the body and back Objective: 10/06/18 11:35 Vital Signs Temperature 97.0 F L 10/06/18 09:23 Pulse Rate 69 10/06/18 09:23 Respiratory Rate 18 10/06/18 09:23 Blood Pressure 103/56 L 10/06/18 09:23 O2 Sat by Pulse Oximetry (%) 10/06/18 11:37 Laboratory Last Values WBC 6.6 K/mm3 (4.0-10.0) 10/05/18 07:30 RBC 4.37 M/mm3 (4.00-5.60) 10/05/18 07:30 Hgb 13.6 GM/dL (11.7-16.9) 10/05/18 07:30 Hct 40.4 % (35.4-49) 10/05/18 07:30 MCV 92.5 fl (80-96) 10/05/18 07:30 MCH 31.0 pg (25.7-33.7) 10/05/18 07:30 MCHC 33.5 g/dl (32.0-35.9) 10/05/18 07:30 RDW 14.1 % (11.9-15.9) D 10/05/18 07:30 Plt Count K/MM3 (134-434) 10/05/18 07:30 Manual Slide Review Smear reviewed 10/05/18 07:30 Platelet Comment Mod plt clumping 10/05/18 07:30 Sodium 138 mmol/L (136-145) 10/05/18 07:30 Potassium 4.2 mmol/L (3.5-5.1) 10/05/18 07:30 Chloride 103 mmol/L (98-107) 10/05/18 07:30 Carbon Dioxide 29 mmol/L (21-32) 10/05/18 07:30 Anion Gap 5 MMOL/L (8-16) L 10/05/18 07:30 BUN 9.5 mg/dL (7-18) 10/05/18 07:30 Creatinine 0.7 mg/dL (0.55-1.3) 10/05/18 07:30 Est GFR (CKD-EPI)AfAm 118.05 10/05/18 07:30 Est GFR (CKD-EPI)NonAf 101.85 10/05/18 07:30 Random Glucose 92 mg/dL (74-106) 10/05/18 07:30 Calcium 9.2 mg/dL (8.5-10.1) 10/05/18 07:30 Total Bilirubin 0.6 mg/dL (0.2-1) 10/05/18 07:30 AST 96 U/L (15-37) H 10/05/18 07:30 ALT 66 U/L (13-61) H 10/05/18 07:30 Alkaline Phosphatase 165 U/L (45-117) H 10/05/18 07:30 Total Protein 7.7 g/dl (6.4-8.2) 10/05/18 07:30 Albumin 2.9 g/dl (3.4-5.0) L 10/05/18 07:30 RPR Titer Nonreactive (NONREACTIVE) 10/05/18 07:30 Assessment: 10/06/18 11:35 withdrawal symptom Plan: continue detox methadone and librium regimen
[2018-10-06] MEDS: guaiFENesin 200 MG/10 ML 10 ML UNIT-DOSE CUPS PO SCH (15:09)
[2018-10-06] MEDS: MELATONIN 5 MG TABLETS PO PRN (22:19)
[2018-10-06] MEDS: THIAMINE HCL 100 MG TABLET (FP) PO SCH (22:19)
[2018-10-07] MEDS ORDERED: chlordiazePOXIDE HCL 10 MG CAPSULE PO PRN
[2018-10-07] MEDS ORDERED: chlordiazePOXIDE HCL 10 MG CAPSULE PO SCH (05:00)
[2018-10-07] MEDS ORDERED: METHADONE HCL 5 MG TABLET (FOR DETOX USE ONLY) PO ONE (06:00)
[2018-10-07] MEDS: CEPHALEXIN MONOHYDRATE 500 MG CAPSULE (UD) PO SCH (06:12)
[2018-10-07 07:32] VITALS: BP 102/74; PULSE 70; TEMP 97.3
--- NOTE | 2018-10-07 08:53 | DS ---
[facility] Detox Discharge Summary Admission Date: 10/04/18 Discharge Date: 10/07/18 - History Present History: Alcohol Dependence, Opioid Dependence - Physical Exam Results Vital Signs: Vital Signs Temperature 97.3 F L 10/07/18 07:32 Pulse Rate 70 10/07/18 07:32 Respiratory Rate 18 10/07/18 07:32 Blood Pressure 102/74 10/07/18 07:32 O2 Sat by Pulse Oximetry (%) Pertinent Admission Physical Exam Findings: pt arrived in withdrawals Laboratory Tests 10/05/18 10/05/18 10/05/18 07:30 07:30 07:30 WBC 6.6 RBC 4.37 Hgb 13.6 Hct 40.4 MCV 92.5 MCH 31.0 MCHC 33.5 RDW 14.1 D Plt Count Manual Slide Review Smear reviewed Platelet Comment Mod plt clumping Sodium 138 Potassium 4.2 Chloride 103 Carbon Dioxide 29 Anion Gap 5 L BUN 9.5 Creatinine 0.7 Est GFR (CKD-EPI)AfAm 118.05 Est GFR (CKD-EPI)NonAf 101.85 Random Glucose 92 Calcium 9.2 Total Bilirubin 0.6 AST 96 H ALT 66 H Alkaline Phosphatase 165 H Total Protein 7.7 Albumin 2.9 L RPR Titer Nonreactive today pt is aaox3 ambulating no acute distress no s/s of withdrawals - Treatment Hospital Course: Detox Protocol Followed, Detoxed Safely, Responded well, Discharged Condition Good, Rehab Referral Accepted Patient has Accepted a Rehab Referral to: declined rehab; referral provided - Medication Discharge Medications: Ambulatory Orders NK [No Known Home Medication] 10/04/18 - Diagnosis (1) Abscess of skin and subcutaneous tissue Current Visit: Yes Status: Acute Qualifiers: Site of cutaneous abscess: extremity Site of cutaneous abscess of extremity : upper extremity Laterality: unspecified laterality Qualified Code(s): L02.419 - Cutaneous abscess of limb, unspecified (2) Alcohol dependence with uncomplicated withdrawal Current Visit: Yes Status: Chronic (3) Opioid dependence with withdrawal Current Visit: Yes Status: Chronic (4) Arthritis Current Visit: Yes Status: Chronic (5) BPH (benign prostatic hyperplasia) Current Visit: Yes Status: Chronic Qualifiers: Lower urinary tract symptom presence: unspecified whether lower urinary tract symptoms present Qualified Code(s): N40.0 - Benign prostatic hyperplasia without lower urinary tract symptoms (6) History of intravenous drug abuse Current Visit: Yes Status: Chronic (7) Nicotine dependence Current Visit: Yes Status: Chronic Qualifiers: Nicotine product type: cigarettes Substance use status: uncomplicated Qualified Code(s): F17.210 - Nicotine dependence, cigarettes, uncomplicated (8) Varicose vein of leg Current Visit: Yes Status: Chronic Qualifiers: Varicose vein complication: asymptomatic Laterality: right Qualified Code (s): I83.91 - Asymptomatic varicose veins of right lower extremity (9) Weight loss Current Visit: Yes Status: Chronic (10) Dry skin dermatitis Current Visit: No Status: Acute (11) Alcoholic cirrhosis of liver Current Visit: No Status: Chronic Qualifiers: Ascites presence: without ascites Qualified Code(s): K70.30 - Alcoholic cirrhosis of liver without ascites (12) GERD (gastroesophageal reflux disease) Current Visit: Yes Status: Chronic Qualifiers: Esophagitis presence: without esophagitis Qualified Code(s): K21.9 - Gastro -esophageal reflux disease without esophagitis (13) Hepatitis C antibody test positive Current Visit: No Status: Chronic (14) Drug-induced mood disorder Current Visit: No Status: Suspected - AMA Did Patient Leave Against Medical Advice: No
[2018-10-08] MEDS ORDERED: chlordiazePOXIDE HCL 10 MG CAPSULE PO ONE (05:00)
== END 2018-10-07 09:05 | disposition home or self-care (01) | DRG 773 ==
LOC: YASAS 15:45 → Y6N 19:36
PROVIDERS: ADMIT Surgery; ATTEND Surgery
PROC: HZ2ZZZZ Detoxification Services for Substance Abuse Treatment (ICD-10-PCS; principal; 2018-10-04)
DX: F11.23 Opioid dependence with withdrawal (principal); F10.230 Alcohol dependence with withdrawal, uncomplicated; F17.210 Nicotine dependence, cigarettes, uncomplicated; L02.414 Cutaneous abscess of left upper limb; L02.413 Cutaneous abscess of right upper limb; I83.91 Asymptomatic varicose veins of right lower extremity; K70.30 Alcoholic cirrhosis of liver without ascites; K21.9 Gastro-esophageal reflux disease without esophagitis; L85.3 Xerosis cutis; M12.9 Arthropathy, unspecified; N40.0 Benign prostatic hyperplasia without lower urinary tract symptoms; R63.4 Abnormal weight loss; Z68.22 Body mass index [BMI] 22.0-22.9, adult; Z86.19 Personal history of other infectious and parasitic diseases; Z59.0 Homelessness
CPT/HCPCS: 36415; 80053; 85027; 86593

== ENCOUNTER 2019-01-14 13:19 | Inpatient (IN) | payer OTHER ==
[2019-01-14 16:19] VITALS: BMI 23.1
[2019-01-14] MEDS ORDERED: MENTHOL/PHENOL 1 EACH UD MM PRN (20:01)
[2019-01-14] MEDS ORDERED: MAGNESIUM CITRATE 300 ML BOTTLE PO PRN (20:01)
[2019-01-14] MEDS ORDERED: PROCHLORPERAZINE MALEATE 5 MG TABLET PO PRN (20:01)
[2019-01-14] MEDS ORDERED: diazePAM 5 MG TABLET PO PRN (20:01)
[2019-01-14] MEDS ORDERED: ACETAMINOPHEN 325 MG TABLET (FP) PO PRN ×2 (20:01)
[2019-01-14] MEDS ORDERED: hydrOXYzine PAMOATE 25 MG CAPSULE (FP) PO PRN (20:01)
[2019-01-14] MEDS ORDERED: MELATONIN 5 MG TABLETS PO PRN (20:01)
[2019-01-14] MEDS ORDERED: MAGNESIUM HYDROX 2400MG/30ML ORAL SUSPENSION 30 ML CUP PO PRN (20:01)
[2019-01-14] MEDS ORDERED: MAG HYDROX/AL HYDROX/SIMETH 30 ML UNIT-DOSE CUP PO PRN (20:01)
[2019-01-14] MEDS ORDERED: cloNIDine HCL 0.1 MG TABLET PO PRN (20:01)
[2019-01-14] MEDS ORDERED: BISMUTH SUBSALICYLATE 524 MG/30 ML UD PO PRN (20:01)
[2019-01-14] MEDS ORDERED: IBUPROFEN 400 MG TABLET (FP) PO PRN (20:01)
--- NOTE | 2019-01-14 20:01 | HP ---
"COWS - Scale Resting Pulse: 1= [place] 81-100 Sweatin= No chills or Flushing Restless Observation: 0= Sits Still Pupil Size: 0= Normal to Room Light Bone or Joint Aches: 1= Mild Discomfort Runny Nose/ Eye Tearin= Nasal Congestion GI Upset > 30mins: 2= Nausea/Diarrhea Tremor Observation: 1= Tremor [place], Not Seen Yawning Observation: 0= None Anxiety or Irritability: 2=Irritable/Anxious Goose Flesh Skin: 0=Smooth Skin COWS Score: 8 CIWA Score Nausea/Vomitin Muscle Tremors: 1-None Visible, but [place] Anxiety: 2 Agitation: 0-Normal Activity Paroxysmal Sweats: No Perspiration Orientation: 0-Oriented Tacttile Disturbances: 0-None Auditory Disturbances: 0-None Visual Disturbances: 2-Mild Sensitivity Headache: 3-Moderate CIWA-Ar Total Score: 11 - Admission Criteria OASAS Guidelines: Admission for Medically Managed Detox: Requires at least one of the followin. CIWA greater than 12 2. Seizures within the past 24 hours 3. Delirium tremens within the past 24 hours 4. Hallucinations within the past 24 hours 5. Acute intervention needed for co occurring medical disorder 6. Acute intervention needed for co occurring psychiatric disorder 7. Severe withdrawal that cannot be handled at a lower level of care (continued vomiting, continued diarrhea, abnormal vital signs) requiring intravenous medication and/or fluids 8. Admitting History and Physical - Smoking History Smoking history: Current every day smoker Have you smoked in the past 12 months: Yes Aproximately how many cigarettes per day: 20 - Alcohol/Substance Use Hx Alcohol Use: Yes Admission [facility] Allergies/Adverse Reactions: Allergies Allergy/AdvReac Type Severity Reaction Status Date / Time No Known Allergies Allergy Verified 01/14/19 16:11 History of Present Illness: pt here requesting detox from etoh and heroin use , denies seizures, blackouts , + tremors Search Terms: harvey alejandre, 1955 Search Date: 01/14/2019 08:05:01 PM The Drug Utilization Report below displays all of the controlled substance prescriptions, if any, that your patient has filled in the last twelve months. The information displayed on this report is compiled from pharmacy submissions to the Department, and accurately reflects the information as submitted by the pharmacies. This report was requested by: Jeanie Atkinson | Reference #: [id number] There are no results for the search terms that you entered. Exam Limitations: Clinical Condition, Intoxication - Ebola screening Have you traveled outside of the country in the last 21 days: No (N) Have you had contact with anyone from an Ebola affected area: No Do you have a fever: No - Review of Systems Constitutional: Loss of Appetite EENT: reports: No Symptoms Reported Respiratory: reports: No Symptoms reported Cardiac: reports: No Symptoms Reported GI: reports: Nausea : reports: Other (hesitancy) Musculoskeletal: reports: Joint Pain (shoulder OA) Integumentary: reports: See HPI (iv use) Neuro: reports: Headache, Tremors Endocrine: reports: No Symptoms Reported Psychiatric: reports: Orientated x3, Agitated Patient History - Patient Medical History Hx Anemia: No Hx Asthma: No Hx Chronic Obstructive Pulmonary Disease (COPD): No Hx Cancer: No Hx Cardiac Disorders: No Hx Congestive Heart Failure: No Hx Hypertension: No Hx Hypercholesterolemia: No Hx Pacemaker: No HX Cerebrovascular Accident: No Hx Seizures: No Hx Dementia: No Hx Diabetes: No Hx Gastrointestinal Disorders: No Hx Liver Disease: Yes (cirrohosis of liver 1986; no treatment) Hx Genitourinary Disorders: No Hx Sexually Transmitted Disorders: Yes (gonorrhea at age 20) Hx Renal Disease (ESRD): No Hx Thyroid Disease: No Hx Human Immunodeficiency Virus (HIV): No (lasted 2016) Hx Hepatitis C: Yes Hx Depression: Yes Hx Suicide Attempt: No Hx Bipolar Disorder: No Hx Schizophrenia: No - Patient Surgical History Past Surgical History: Yes Hx Neurologic Surgery: No Hx Cataract Extraction: No Hx Cardiac Surgery: No Hx Lung Surgery: No Hx Breast Surgery: No Hx Breast Biopsy: No Hx Abdominal Surgery: No Hx Appendectomy: No Hx Cholecystectomy: No Hx Genitourinary Surgery: No Hx Section: No Hx Orthopedic Surgery: No Other Surgical History: tonsilectomy 14 years old , Anesthesia Reaction: No - PPD History Date: 12/03/17 Results: 0 mm - Smoking Cessation Smoking history: Current every day smoker Have you smoked in the past 12 months: Yes Aproximately how many cigarettes per day: 20 Cigars Per Day: 0 Hx Chewing Tobacco Use: No Initiated information on smoking cessation: Yes 'Breaking Loose' booklet given: 01/14/19 - Substances abused Alcohol Substance route: Oral Frequency: Daily Amount used: 2 to 3 beers/ vodka half pt. Age of first use: 20 Date of last use: 01/14/19 Heroin Substance route: Injection Frequency: Daily Amount used: 2-3 BAGS Age of first use: 35 Date of last use: 01/14/19 Admission Physical Exam S - Vital Signs Vital Signs: Vital Signs - 24 hr 01/14/19 16:13 Temperature 98.3 F Pulse Rate 87 Respiratory 16 Rate Blood Pressure 111/65 - Physical General Appearance: Yes: Mild Distress, Alcohol on Breath, Intoxicated, Irritable HEENTM: Yes: EOMI, Hearing grossly Normal, Normocephalic, Normal Voice, Other ( many missing teeth) Respiratory: Yes: Chest Non-Tender, Lungs Clear, Normal Breath Sounds, No Respiratory Distress, No Accessory Muscle Use Neck: Yes: No masses,lesions,Nodules, Trachea in good position Cardiology: Yes: Regular Rhythm, Regular Rate, S1, S2 Abdominal: Yes: Non Tender, Soft Musculoskeletal: Yes: Gait Steady Extremities: Yes: Normal Range of Motion, Non-Tender, Tremors Neurological: Yes: Alert, Motor Strength 5/5, Normal Mood/Affect Integumentary: Yes: Warm, Track Thacker (vera UE w/ superficial scab right FA ) - Diagnostic (1) Alcohol dependence with uncomplicated withdrawal Current Visit: Yes Status: Chronic (2) Opioid dependence with withdrawal Current Visit: Yes Status: Chronic Breathalyzer - Breathalyzer Breathalyzer: 0.073 Urine Drug Screen - Test Device Lot number: [id number] Expiration date: 09/08/20 - Control Is test valid?: Yes - Results Drug screen NEGATIVE: No Urine drug screen results: FEN-Fentanyl, MOP-Opiates Inpatient Rehab Admission - Rehab Decision to Admit Inpatient rehab admission?: No"
[2019-01-14] MEDS: THIAMINE HCL 100 MG TABLET (FP) PO SCH (22:54)
[2019-01-14] MEDS: diazePAM 5 MG TABLET PO SCH (22:54)
[2019-01-14] MEDS ORDERED: METHADONE HCL 5 MG TABLET (FOR DETOX USE ONLY) PO ONE (23:00)
[2019-01-15] MEDS: diazePAM 5 MG TABLET PO SCH ×3 (07:08→22:35)
[2019-01-15] MEDS ORDERED: METHADONE HCL 5 MG TABLET (FOR DETOX USE ONLY) PO ONE (10:00)
[2019-01-15] MEDS: PRENATAL VITAMINS W/ FOLIC ACID TABLET (FP) PO SCH (10:27)
[2019-01-15 10:43] LABS: ALBUMIN 2.6 g/dl (3.4-5.0); BILIRUBIN,TOTAL 0.3 mg/dL (0.2-1); BLOOD UREA NITROGEN 9.2 mg/dL (7-18); CALCIUM 8.4 mg/dL (8.5-10.1); CREATININE 0.6 mg/dL (0.55-1.3); POTASSIUM 4.4 mmol/L (3.5-5.1); TOT PROT 7.2 g/dl (6.4-8.2)
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
[2019-01-15 11:35] LABS: HEMATOCRIT 41.1 % (35.4-49); HEMOGLOBIN 13.6 GM/dL (11.7-16.9); MCH 31.3 pg (25.7-33.7); MCHC 33.1 g/dl (32.0-35.9); MEAN CELL VOLUME 94.6 fl (80-96); RBC 4.35 M/mm3 (4.00-5.60); RDW 13.8 % (11.9-15.9); WHITE BLOOD COUNT 4.9 K/mm3 (4.0-10.0)
--- NOTE | 2019-01-15 12:59 | PN ---
[facility] CIWA - CIWA Score Nausea/Vomitin-No Nausea/No Vomiting Muscle Tremors: 2 Anxiety: 3 Agitation: 0-Normal Activity Paroxysmal Sweats: 3 Orientation: 0-Oriented Tacttile Disturbances: 0-None Auditory Disturbances: 0-None Visual Disturbances: 0-None Headache: 0-None Present CIWA-Ar Total Score: 8 BHS COWS - Scale Resting Pulse: 1= [place] 81-100 Sweatin= Chills/Flushing Restless Observation: 1= Difficult to Sit Still Pupil Size: 0= Normal to Room Light Bone or Joint Aches: 2= Severe Diffuse Aches Runny Nose/ Eye Tearin= None GI Upset > 30mins: 0= None Tremor Observation of Outstretched Hands: 2= Slight Tremor Visible Yawning Observation: 1= 1-2x During Session Anxiety or Irritability: 2=Irritable/Anxious Goose Flesh Skin: 0=Smooth Skin COWS Score: 10 S Progress Note (SOAP) Subjective: c/o sweats, anxiety, irritability, headache, and shakes. Objective: 01/15/19 13:00 Vital Signs 01/15/19 01/15/19 07:28 09:27 Temperature 97.4 F L 97.7 F Pulse Rate 86 59 L Respiratory 18 16 Rate Blood Pressure 106/62 111/68 Laboratory Last Values WBC 4.9 K/mm3 (4.0-10.0) 01/15/19 07:40 RBC 4.35 M/mm3 (4.00-5.60) 01/15/19 07:40 Hgb 13.6 GM/dL (11.7-16.9) 01/15/19 07:40 Hct 41.1 % (35.4-49) 01/15/19 07:40 MCV 94.6 fl (80-96) 01/15/19 07:40 MCH 31.3 pg (25.7-33.7) 01/15/19 07:40 MCHC 33.1 g/dl (32.0-35.9) 01/15/19 07:40 RDW 13.8 % (11.9-15.9) 01/15/19 07:40 Sodium 138 mmol/L (136-145) 01/15/19 07:40 Potassium 4.4 mmol/L (3.5-5.1) 01/15/19 07:40 Chloride 105 mmol/L (98-107) 01/15/19 07:40 Carbon Dioxide 27 mmol/L (21-32) 01/15/19 07:40 Anion Gap 6 MMOL/L (8-16) L 01/15/19 07:40 BUN 9.2 mg/dL (7-18) 01/15/19 07:40 Creatinine 0.6 mg/dL (0.55-1.3) 01/15/19 07:40 Est GFR (CKD-EPI)AfAm 125.77 01/15/19 07:40 Est GFR (CKD-EPI)NonAf 108.52 01/15/19 07:40 Random Glucose 96 mg/dL (74-106) 01/15/19 07:40 Calcium 8.4 mg/dL (8.5-10.1) L 01/15/19 07:40 Total Bilirubin 0.3 mg/dL (0.2-1) 01/15/19 07:40 AST 151 U/L (15-37) H 01/15/19 07:40 ALT 117 U/L (13-61) H 01/15/19 07:40 Alkaline Phosphatase 233 U/L (45-117) H 01/15/19 07:40 Total Protein 7.2 g/dl (6.4-8.2) 01/15/19 07:40 Albumin 2.6 g/dl (3.4-5.0) L 01/15/19 07:40 RPR Titer Nonreactive (NONREACTIVE) 01/15/19 07:40 Labs noted. Assessment: 01/15/19 13:03 AOX3, in no acute respiratory distress. Full ROM, ambulating in the unit. Withdrawal symptoms. Noted right arm with a wound. Pt is unable to state how he sustained the wound. Pt added "i just found it a week ago". Plan: continue detox. Bacitracin ointment TP bid to right arm wound.
[2019-01-15] MEDS: BACITRACIN 15 GM TUBE TOPICAL OINTMENT TP SCH ×2 (14:09→22:52)
[2019-01-15] MEDS: NICOTINE 21 MG/24 HOURS TOPICAL PATCH TD SCH (15:12)
[2019-01-15] MEDS: THIAMINE HCL 100 MG TABLET (FP) PO SCH (22:35)
--- NOTE | 2019-01-15 23:27 | EKG ---
Test Reason : Blood Pressure : / mmHG Vent. Rate : 082 BPM Atrial Rate : 082 BPM P-R Int : 190 ms QRS Dur : 090 ms QT Int : 382 ms P-R-T Axes : 076 074 063 degrees QTc Int : 446 ms NORMAL SINUS RHYTHM POSSIBLE LEFT ATRIAL ENLARGEMENT BORDERLINE ECG WHEN COMPARED WITH ECG OF 20-MAY-2017 01:06, NO SIGNIFICANT CHANGE WAS FOUND Confirmed by PRAVIN PEREZ MD ([id number]) on 01/15/2019 11:27:26 PM Referred By: Confirmed By:PRAVIN PEREZ MD
[2019-01-16] MEDS ORDERED: diazePAM 5 MG TABLET PO SCH (06:00)
[2019-01-16 09:14] VITALS: BP 119/79; PULSE 68; TEMP 97.8
[2019-01-16] MEDS ORDERED: METHADONE HCL 10 MG TABLET (FOR DETOX USE ONLY) PO ONE (10:00)
[2019-01-16] MEDS: BACITRACIN 15 GM TUBE TOPICAL OINTMENT TP SCH (10:32)
[2019-01-16] MEDS: NICOTINE 21 MG/24 HOURS TOPICAL PATCH TD SCH (10:33)
[2019-01-16] MEDS: PRENATAL VITAMINS W/ FOLIC ACID TABLET (FP) PO SCH (10:33)
--- NOTE | 2019-01-16 12:23 | DS ---
[facility] Detox Discharge Summary Admission Date: 01/14/19 Discharge Date: 01/16/19 - History Present History: Alcohol Dependence, Opioid Dependence Additional Comments: 63 years old male admitted on 01/14/19 for alchol and opiate withdrawal sx management treated with valium and methadone detox regimen patient prefers to be discharged one day earlier as per estimated discharge date of 01/17/19 Pertinent Past History: patient agrees to consider medication assisted treatment program strong recommend the patient follow up with community health services for hepatitis c and cirrhosis of liver - Physical Exam Results Vital Signs: Vital Signs Temperature 97.8 F 01/16/19 09:14 Pulse Rate 68 01/16/19 09:14 Respiratory Rate 16 01/16/19 09:14 Blood Pressure 119/79 01/16/19 09:14 O2 Sat by Pulse Oximetry (%) Pertinent Admission Physical Exam Findings: alcohol and opiate withdrawal sx Laboratory Last Values WBC 4.9 K/mm3 (4.0-10.0) 01/15/19 07:40 RBC 4.35 M/mm3 (4.00-5.60) 01/15/19 07:40 Hgb 13.6 GM/dL (11.7-16.9) 01/15/19 07:40 Hct 41.1 % (35.4-49) 01/15/19 07:40 MCV 94.6 fl (80-96) 01/15/19 07:40 MCH 31.3 pg (25.7-33.7) 01/15/19 07:40 MCHC 33.1 g/dl (32.0-35.9) 01/15/19 07:40 RDW 13.8 % (11.9-15.9) 01/15/19 07:40 Plt Count No Result Required. 01/15/19 07:40 Manual Slide Review Manual review 01/15/19 07:40 Platelet Comment Slt plt clumping 01/15/19 07:40 Sodium 138 mmol/L (136-145) 01/15/19 07:40 Potassium 4.4 mmol/L (3.5-5.1) 01/15/19 07:40 Chloride 105 mmol/L (98-107) 01/15/19 07:40 Carbon Dioxide 27 mmol/L (21-32) 01/15/19 07:40 Anion Gap 6 MMOL/L (8-16) L 01/15/19 07:40 BUN 9.2 mg/dL (7-18) 01/15/19 07:40 Creatinine 0.6 mg/dL (0.55-1.3) 01/15/19 07:40 Est GFR (CKD-EPI)AfAm 125.77 01/15/19 07:40 Est GFR (CKD-EPI)NonAf 108.52 01/15/19 07:40 Random Glucose 96 mg/dL (74-106) 01/15/19 07:40 Calcium 8.4 mg/dL (8.5-10.1) L 01/15/19 07:40 Total Bilirubin 0.3 mg/dL (0.2-1) 01/15/19 07:40 AST 151 U/L (15-37) H 01/15/19 07:40 ALT 117 U/L (13-61) H 01/15/19 07:40 Alkaline Phosphatase 233 U/L (45-117) H 01/15/19 07:40 Total Protein 7.2 g/dl (6.4-8.2) 01/15/19 07:40 Albumin 2.6 g/dl (3.4-5.0) L 01/15/19 07:40 RPR Titer Nonreactive (NONREACTIVE) 01/15/19 07:40 lab noted ast elevation discuss alcohol related ast elevation - Treatment Hospital Course: Detox Protocol Followed, Detoxed Safely, Responded well, Discharged Condition Good, Rehab Referral Accepted Patient has Accepted a Rehab Referral to: community support group - Medication Discharge Medications: Ambulatory Orders Naloxone HCl [Narcan] 4 mg NS ASDIR PRN #1 spray 01/16/19 - Diagnosis (1) Alcohol dependence with uncomplicated withdrawal Current Visit: Yes Status: Acute (2) Opioid dependence with withdrawal Current Visit: Yes Status: Acute (3) Nicotine dependence Current Visit: Yes Status: Acute Qualifiers: Nicotine product type: cigarettes Substance use status: in withdrawal Qualified Code(s): F17.213 - Nicotine dependence, cigarettes, with withdrawal (4) Alcoholic cirrhosis of liver Current Visit: Yes Status: Chronic Qualifiers: Ascites presence: without ascites Qualified Code(s): K70.30 - Alcoholic cirrhosis of liver without ascites (5) BPH (benign prostatic hyperplasia) Current Visit: Yes Status: Chronic Qualifiers: Lower urinary tract symptom presence: symptoms absent Qualified Code(s): N40.0 - Benign prostatic hyperplasia without lower urinary tract symptoms (6) GERD (gastroesophageal reflux disease) Current Visit: Yes Status: Chronic Qualifiers: Esophagitis presence: without esophagitis Qualified Code(s): K21.9 - Gastro -esophageal reflux disease without esophagitis (7) Hepatitis C antibody test positive Current Visit: Yes Status: Chronic (8) Weight loss Current Visit: Yes Status: Chronic - AMA Did Patient Leave Against Medical Advice: No CIWA Score - CIWA Score Nausea/Vomitin-No Nausea/No Vomiting Muscle Tremors: 1-None Visible, but [place] Anxiety: 2 Agitation: 0-Normal Activity Paroxysmal Sweats: 1-Minimal Palms Moist Orientation: 0-Oriented Tacttile Disturbances: 0-None Auditory Disturbances: 0-None Visual Disturbances: 0-None Headache: 0-None Present CIWA-Ar Total Score: 4 COWS (PN) - Opiate Withdrawal Resting Pulse: 0= [place] 80 or Below Sweatin= Chills/Flushing Restless Observation: 0= Sits Still Pupil Size: 0= Normal to Room Light Bone or Joint Aches: 1= Mild Discomfort Runny Nose/ Eye Tearin= None GI Upset > 30mins: 1= Stomach Cramp Tremor Observation of Outstretched Hands: 0= None Yawning Observation: 0= None Anxiety or Irritability: 1=Feels Anxious/Irritable Goose Flesh Skin: 0=Smooth Skin COWS Score: 4
[2019-01-17] MEDS ORDERED: diazePAM 5 MG TABLET PO ONE (06:00)
== END 2019-01-16 09:03 | disposition home or self-care (01) | DRG 773 ==
LOC: YASAS 13:19 → UNDOADMIN 20:34 → Y3N 20:34
PROVIDERS: ADMIT Allergy & Immunology; ATTEND Allergy & Immunology
PROC: HZ2ZZZZ Detoxification Services for Substance Abuse Treatment (ICD-10-PCS; principal; 2019-01-14)
DX: F10.230 Alcohol dependence with withdrawal, uncomplicated (principal); F11.23 Opioid dependence with withdrawal; F17.210 Nicotine dependence, cigarettes, uncomplicated; F19.24 Other psychoactive substance dependence with psychoactive substance-induced mood disorder; K70.30 Alcoholic cirrhosis of liver without ascites; K21.9 Gastro-esophageal reflux disease without esophagitis; N40.0 Benign prostatic hyperplasia without lower urinary tract symptoms; B18.2 Chronic viral hepatitis C; M13.861 Other specified arthritis, right knee; M13.811 Other specified arthritis, right shoulder; R63.4 Abnormal weight loss; Z68.23 Body mass index [BMI] 23.0-23.9, adult; Z86.19 Personal history of other infectious and parasitic diseases
CPT/HCPCS: 36415; 80053; 85027; 86593; 93005; 93010

== ENCOUNTER 2019-08-11 15:39 | Inpatient (IN) | payer OTHER ==
--- NOTE | 2019-08-11 15:54 | PDOC ---
History of Present Illness - General Stated Complaint: Shortness of Breath Time Seen by Provider: 08/11/19 15:54 History Source: Patient Exam Limitations: No Limitations - History of Present Illness Initial Comments: 08/11/19 17:00 64yM w PMHx HepC (not treated), COPD, EtOH, heroin abuse presenting w vera forearm warmth/erythema/tenderness where he injects himself. Didn't take any meds for arms. Originally presented to [facility] for detox, redirected here for fever, concern regarding arms. Has chronic unchanged cough 2/2 COPD. Pt denies n/v, SOB, chest/ABD pain, urinary/bowel mvmt changes. Past History - Medical History Allergies/Adverse Reactions: Allergies Allergy/AdvReac Type Severity Reaction Status Date / Time No Known Allergies Allergy Verified 08/11/19 16:02 Home Medications: Ambulatory Orders Naloxone HCl [Narcan] 4 mg NS ASDIR PRN #1 spray 01/16/19 Anemia: No Asthma: No Cancer: No Cardiac Disorders: No CVA: No COPD: No CHF: No Dementia: No Diabetes: No GI Disorders: No Disorders: No HTN: No Hypercholesterolemia: No Kidney Stones: No Liver Disease: Yes (cirrohosis of liver 1986; no treatment) Seizures: No Thyroid Disease: No - Surgical History Abdominal Surgery: No Appendectomy: No Cardiac Surgery: No Cholecystectomy: No Lung Surgery: No Neurologic Surgery: No Orthopedic Surgery: No - Reproductive History Testicular Surgery: No - Psycho-Social/Smoking History Smoking History: Current every day smoker Have you smoked in the past 12 months: Yes Number of Cigarettes Smoked Daily: 20 Cigars Per Day: 0 'Breaking Loose' booklet given: 01/14/19 Review of Systems - Review of Systems Constitutional: No: Chills, Fever HEENTM: No: Eye Pain, Ear Discharge Respiratory: Yes: Cough (chronic). No: Shortness of Breath Cardiac (ROS): No: Chest Pain, Lightheadedness ABD/GI: No: Abdominal Distended, Constipated, Diarrhea, Nausea, Vomiting : No: Burning, Dysuria Musculoskeletal: No: Back Pain, Joint Pain Integumentary: No: Bruising, Dryness Neurological: No: Headache, Seizure Psychiatric: No: Anxiety, Depression Endocrine: No: Intolerance to Cold, Intolerance to Heat Hematologic/Lymphatic: No: Anemia, Blood Clots *Physical Exam - Physical Exam General Appearance: Yes: Nourished, Appropriately Dressed, Mild Distress HEENT: positive: EOMI, SHIRIN, Normal Voice, Hearing Grossly Normal. negative: Scleral Icterus (R), Scleral Icterus (L) Respiratory/Chest: positive: Lungs Clear, Normal Breath Sounds. negative: Chest Tender, Respiratory Distress, Crackles, Rales, Rhonchi, Stridor, Wheezing Cardiovascular: positive: Regular Rhythm, S1, S2, Tachycardia. negative: Edema, Murmur Comments:: 08/11/19 18:38 2+ radial pulses vera Gastrointestinal/Abdominal: positive: Normal Bowel Sounds, Flat, Soft. negative: Tender, Organomegaly Extremity: positive: Other (BUE - erythema, warm, tender to palpation w multiple injection spots and raised lesions, no active bleeding/discharge) Integumentary: positive: Normal Color, Warm Neurologic: positive: Fully Oriented, Alert, Normal Mood/Affect, Normal Response, Motor Strength 5/5, Responsive, Other (intact sensation to touch arms). negative: Numbness, Confused, Disoriented ED Treatment Course - LABORATORY CBC & Chemistry Diagram: 08/11/19 17:17 08/11/19 17:17 Medical Decision Making - Medical Decision Making 08/11/19 17:07 EKG - NSR, HR 92, QTc 435, no ST changes CXR - clear lungs --- 64yM w PMHx HepC (not treated), COPD, EtOH, heroin abuse presenting w vera forearm warmth/erythema/tenderness where he injects himself. Sepsis likely 2/2 vera arm cellulitis. No sign of PNA on CXR or UTI, neg trop. high LFTs unchanged. Neurovascular intact arms. Given 30ml/kg NS, vanc, zosyn, tylenol Admit m/s hospitalist for sepsis 2/2 cellulitis Discharge - Discharge Information Problems reviewed: Yes Clinical Impression/Diagnosis: Substance abuse Sepsis Qualifiers: Sepsis type: sepsis due to unspecified organism Sepsis acute organ dysfunction status: without acute organ dysfunction Qualified Code(s): A41.9 - Sepsis, unspecified organism Cellulitis Qualifiers: Site of cellulitis: extremity Site of cellulitis of extremity: upper extremity Laterality: left Qualified Code(s): L03.114 - Cellulitis of left upper limb Condition: Improved - Follow up/Referral - Patient Discharge Instructions - Post Discharge Activity
[2019-08-11] MEDS ORDERED: SODIUM CHLORIDE 2,449 ML IV ONE (16:38)
[2019-08-11] MEDS ORDERED: VANCOMYCIN 1 GM in D5W (PRE-DOCKED) 1,000 MG/250 ML IVPB ONE (16:39)
[2019-08-11] MEDS ORDERED: PIPERACILLIN/TAZOB 4.5 GM 4.5 GM in DEXTROSE 5%-WATER 100 ML IVPB ONE (16:39)
[2019-08-11] MEDS ORDERED: ACETAMINOPHEN 1000 MG/100 ML VIAL (NON FORMULARY) IVPB ONE (16:50)
[2019-08-11] MEDS ORDERED: ACETAMINOPHEN INJECTION 100 ML IVPB ONE (17:04)
[2019-08-11] MEDS ORDERED: PIPERACILLIN/TAZOB 4.5 GM 4.5 GM/100 ML BAG IVPB ONE (17:05)
[2019-08-11] MEDS ORDERED: VANCOMYCIN 1 GRAM (PRE-DOCKED) 1,000 MG/250 ML BAG IVPB ONE (17:05)
[2019-08-11 17:37] LABS: PH,URINE 5.5 (5.0-8.0); URINE APPEARANCE CLEAR; URINE BILIRUBIN NEGATIVE (NEGATIVE); URINE COLOR YELLOW; URINE GLUCOSE (UA) NEGATIVE (NEGATIVE); URINE KETONE NEGATIVE (NEGATIVE); URINE LEUK ESTERASE NEGATIVE (NEGATIVE); URINE NITRITE NEGATIVE (NEGATIVE); URINE PROTEIN NEGATIVE (NEGATIVE)
[2019-08-11 17:54] LABS: BASO % 0.9 % (0-2.0); EOS % 1.1 % (0-4.5); HEMATOCRIT 41.6 % (35.4-49); HEMOGLOBIN 13.7 GM/dL (11.7-16.9); LYMPH % 12.9 % (8-40); MCH 30.5 pg (25.7-33.7); MEAN CELL VOLUME 92.2 fl (80-96); MEAN PLT VOLUME 8.6 fl (7.5-11.1); MONO % 10.8 % (3.8-10.2); NEUT % 74.3 % (42.8-82.8); RBC 4.51 M/mm3 (4.00-5.60); RDW 13.6 % (11.9-15.9); WHITE BLOOD COUNT 7.7 K/mm3 (4.0-10.0)
[2019-08-11 17:55] LABS: INR 1.18 (0.83-1.09); PROTHROMBIN TIME (PATIENT) 13.9 SEC (9.7-13.0)
[2019-08-11 17:57] LABS: ACTIVATED PTT 36.9 SECONDS (25.2-36.5)
[2019-08-11 18:18] LABS: ALBUMIN 3.1 g/dl (3.4-5.0); ALK PHOS 214 U/L (45-117); ANION GAP 5 MMOL/L (8-16); BILIRUBIN,TOTAL 0.7 mg/dL (0.2-1); BLOOD UREA NITROGEN 10.7 mg/dL (7-18); CHLORIDE 100 mmol/L (98-107); CO2 26 mmol/L (21-32); CREATININE 0.8 mg/dL (0.55-1.3); GLUCOSE,RANDOM 95 mg/dL (74-106); POTASSIUM 4.6 mmol/L (3.5-5.1); SGOT/AST 121 U/L (15-37); SGPT/ALT 79 U/L (13-61); SODIUM 132 mmol/L (136-145); TOT PROT 8.6 g/dl (6.4-8.2)
--- NOTE | 2019-08-11 18:22 | PDOC ---
Documentation entered by Damaris Allen SCRIBE, acting as scribe for Jeanie Jackson MD. Jeanie Jackson MD: This documentation has been prepared by the Musa ellington Nirvannie, SCRIBE, under my direction and personally reviewed by me in its entirety. I confirm that the documentation accurately reflects all work, treatment, procedures, and medical decision making performed by me. Attending Attestation - Resident Resident Name: Itz Sanabria - ED Attending Attestation I have performed the following: I have examined & evaluated the patient, The case was reviewed & discussed with the resident, I agree w/resident's findings & plan, Exceptions are as noted - HPI HPI: 08/11/19 16:27 64yo M h/o of polysubstance abuse (heroin, etoh and tobacco user) last drink 08/09, liver cirrhosis (87) who presents to the ED with cough and fever. Per patient, he was seen at [facility] for detox from heroin, found to have a fever 102. pt states his cough is chronic, denies sputum. no n/v no abd pain. no urinary complaints. bilat upper arm swelling redness. no other complaints. denies diarrhea, or body aches. Allergies: NKDA 08/11/19 18:14 - Physicial Exam PE: 08/11/19 18:19 awake alert lungs clear except faint crackles right base. heart reg tachycardia. no mrg abd soft nt nd ext wwp. bilat upper ext mulitple injection scars. erythema. min swelling. no noted fluctuance. nuero alert oriente x 3. - Medical Decision Making 08/11/19 18:20 64 yo male with h/o heroin , etoh abuse here from [facility] with fever. diferential pna, covid 19, cellulitis, bactermia, uti plan cxr lab cultures covid swab. cxr. will given broad spectrum abx vanocmycin and zosyn for cellulitis. Discharge - Discharge Information Problems reviewed: Yes Clinical Impression/Diagnosis: Substance abuse Sepsis Qualifiers: Sepsis type: sepsis due to unspecified organism Sepsis acute organ dysfunction status: without acute organ dysfunction Qualified Code(s): A41.9 - Sepsis, unspecified organism Cellulitis Qualifiers: Site of cellulitis: extremity Site of cellulitis of extremity: upper extremity Laterality: left Qualified Code(s): L03.114 - Cellulitis of left upper limb Condition: Improved - Follow up/Referral - Patient Discharge Instructions - Post Discharge Activity
[2019-08-11 18:29] LABS: PLATELET ESTIMATE DECREASED
--- NOTE | 2019-08-11 19:31 | HP ---
CHIEF COMPLAINT: fever, bilateral arm swelling PCP:none HISTORY OF PRESENT ILLNESS: 64yo M h/o of polysubstance abuse (heroin, etoh and tobacco user) last drink 08/09, liver cirrhosis (87), HepC (not treated), COPD, who presents to the ED with cough and fever. Per patient, he was seen at [facility] for detox from heroin, found to have a fever 102 and sent to ED for further evaluation. pt denies chills, fevers, pain in arms at injection sites. last use right arm for heroine this morning. ER course was notable for: (1) WBC 101.5 (2) WBC 7.7 (3) Recent Travel: PAST MEDICAL HISTORY: polysubstance abuse (heroin, etoh and tobacco user) last drink 08/09, liver cirrhosis (87) PAST SURGICAL HISTORY: Family History: parents both , did not contribute hx Social History: Smoking:current smoker Alcohol:current drinker Drugs: heroine use, last use this morning Allergies No Known Allergies Allergy (Verified 08/11/19 16:02) HOME MEDICATIONS: Home Medications Medication Instructions Recorded Naloxone HCl [Narcan] 4 mg NS ASDIR PRN #1 spray 01/16/19 REVIEW OF SYSTEMS CONSTITUTIONAL: Absent: fever, chills, diaphoresis, generalized weakness, malaise, loss of appetite, weight change HEENT: Absent: rhinorrhea, nasal congestion, throat pain, throat swelling, difficulty swallowing, mouth swelling, ear pain, eye pain, visual changes CARDIOVASCULAR: Absent: chest pain, syncope, palpitations, irregular heart rate, lightheadedness, peripheral edema RESPIRATORY: Absent: cough, shortness of breath, dyspnea with exertion, orthopnea, wheezing, stridor, hemoptysis GASTROINTESTINAL: Absent: abdominal pain, abdominal distension, nausea, vomiting, diarrhea, constipation, melena, hematochezia GENITOURINARY: Absent: dysuria, frequency, urgency, hesitancy, hematuria, flank pain, genital pain MUSCULOSKELETAL: Absent: myalgia, arthralgia, joint swelling, back pain, neck pain SKIN: Absent: rash, itching, pallor HEMATOLOGIC/IMMUNOLOGIC: Absent: easy bleeding, easy bruising, lymphadenopathy, frequent infections ENDOCRINE: Absent: unexplained weight gain, unexplained weight loss, heat intolerance, cold intolerance NEUROLOGIC: Absent: headache, focal weakness or paresthesias, dizziness, unsteady gait, seizure, mental status changes, bladder or bowel incontinence PSYCHIATRIC: Absent: anxiety, depression, suicidal or homicidal ideation, hallucinations. PHYSICAL EXAMINATION Vital Signs - 24 hr 08/11/19 08/11/19 08/11/19 15:58 16:20 16:40 Temperature 101.5 F H 100.5 F H Pulse Rate 92 H Pulse Rate [ 86 Radial] Respiratory 18 20 22 H Rate Blood Pressure 142/79 Blood Pressure 154/89 [Left Arm] O2 Sat by Pulse 98 98 Oximetry (%) 08/11/19 08/11/19 08/11/19 16:50 16:53 18:20 Temperature 99.8 F H Pulse Rate Pulse Rate [ 84 Radial] Respiratory 20 Rate Blood Pressure Blood Pressure 124/75 [Left Arm] O2 Sat by Pulse 98 96 Oximetry (%) GENERAL: Awake, alert, and fully oriented, in no acute distress. HEAD: Normal with no signs of trauma. EYES: Pupils equal, round and reactive to light, extraocular movements intact, sclera anicteric, conjunctiva clear. No lid lag. EARS, NOSE, THROAT: Ears normal, nares patent, oropharynx clear without exudates. Moist mucous membranes. NECK: Normal range of motion, supple without lymphadenopathy, JVD, or masses. LUNGS: Breath sounds equal, clear to auscultation bilaterally. No wheezes, and no crackles. No accessory muscle use. HEART: Regular rate and rhythm, normal S1 and S2 without murmur, rub or gallop. ABDOMEN: Soft, nontender, not distended, normoactive bowel sounds, no guarding, no rebound, no masses. No hepatomegaly or splenomegaly. MUSCULOSKELETAL: Normal range of motion at all joints. No bony deformities or tenderness. No CVA tenderness. UPPER EXTREMITIES: 2+ pulses, warm, well-perfused. No cyanosis. No clubbing. No peripheral edema. LOWER EXTREMITIES: 2+ pulses, warm, well-perfused. No calf tenderness. No peripheral edema. NEUROLOGICAL: Cranial nerves II-XII intact. Normal speech. Normal gait. PSYCHIATRIC: Cooperative. Good eye contact. Appropriate mood and affect. SKIN: Warm, dry, normal turgor, no rashes or lesions noted, normal capillary refill. Laboratory Results - last 24 hr 08/11/19 08/11/19 08/11/19 16:35 17:00 17:17 WBC RBC Hgb Hct MCV MCH MCHC RDW Plt Count MPV Absolute Neuts (auto) Neutrophils % Lymphocytes % Monocytes % Eosinophils % Basophils % Nucleated RBC % Platelet Estimate Platelet Comment PT with INR 13.90 H INR 1.18 H PTT (Actin FS) 36.9 H Sodium Potassium Chloride Carbon Dioxide Anion Gap BUN Creatinine Est GFR (CKD-EPI)AfAm Est GFR (CKD-EPI)NonAf Random Glucose Lactic Acid 1.5 Calcium Total Bilirubin AST ALT Alkaline Phosphatase Creatine Kinase Troponin I Total Protein Albumin Urine Color Yellow Urine Appearance Clear Urine pH 5.5 Ur Specific Ary 1.019 Urine Protein Negative Urine Glucose (UA) Negative Urine Ketones Negative Urine Blood Negative Urine Nitrite Negative Urine Bilirubin Negative Urine Urobilinogen 1.0 Ur Leukocyte Esterase Negative 08/11/19 08/11/19 08/11/19 17:17 17:17 17:17 WBC 7.7 RBC 4.51 Hgb 13.7 Hct 41.6 MCV 92.2 MCH 30.5 MCHC 33.0 RDW 13.6 Plt Count TNP MPV 8.6 D Absolute Neuts (auto) 5.7 Neutrophils % 74.3 Lymphocytes % 12.9 Monocytes % 10.8 H Eosinophils % 1.1 Basophils % 0.9 Nucleated RBC % 0 Platelet Estimate Decreased Platelet Comment Mod plt clumping PT with INR INR PTT (Actin FS) Sodium 132 L Potassium 4.6 Chloride 100 Carbon Dioxide 26 Anion Gap 5 L BUN 10.7 Creatinine 0.8 Est GFR (CKD-EPI)AfAm 110.96 Est GFR (CKD-EPI)NonAf 95.74 Random Glucose 95 Lactic Acid Calcium 9.0 Total Bilirubin 0.7 AST 121 H ALT 79 H Alkaline Phosphatase 214 H Creatine Kinase 75 Troponin I Cancelled < 0.02 Total Protein 8.6 H Albumin 3.1 L Urine Color Urine Appearance Urine pH Ur Specific Ary Urine Protein Urine Glucose (UA) Urine Ketones Urine Blood Urine Nitrite Urine Bilirubin Urine Urobilinogen Ur Leukocyte Esterase ASSESSMENT/PLAN: 64yo M h/o of polysubstance abuse (heroin, etoh and tobacco user) last drink 08/09, liver cirrhosis (87), HepC (not treated), COPD admitted for Admitting Diagnosis B/L arm cellulitis Chronic Conditions COPD ETOH use Heroine use Hep C not treated #B/L arm cellulitis -IV abt vanc, zosyn -ID consult -blood cx in process -tylenol prn for fever -COVID in process #COPD -not on inhalers #ETOH use #Heroine use -monitor for withdrawl -seizure precautions -Librium PRN as per CIWA score -Nicotine patch #Hep C-not treated #Elevated LFTs-chronic Full Code Visit type - Emergency Visit Emergency Visit: Yes ED Registration Date: 08/11/19 Care time: The patient presented to the Emergency Department on the above date and was hospitalized for further evaluation of their emergent condition. - New Patient This patient is new to me today: Yes Date on this admission: 08/11/19 - Critical Care Critical Care patient: No
[2019-08-11] MEDS ORDERED: ACETAMINOPHEN 325 MG TABLET (FP) PO PRN (19:59)
[2019-08-11] MEDS ORDERED: chlordiazePOXIDE HCL 25 MG CAPSULE PO PRN (20:02)
[2019-08-11] MEDS: NICOTINE 21 MG/24 HOURS TOPICAL PATCH TD SCH (20:05)
[2019-08-11] MEDS: SODIUM CHLORIDE 1,000 ML IV SCH (21:16)
[2019-08-11] MEDS ORDERED: chlordiazePOXIDE HCL 25 MG CAPSULE ONE (22:54)
[2019-08-11] MEDS ORDERED: HEPARIN NA (PORCINE) 5,000 UNITS/ML 1ML VIAL ONE (22:54)
[2019-08-11] MEDS: HEPARIN NA (PORCINE) 5,000 UNITS/ML 1ML VIAL SQ SCH (23:17)
[2019-08-11] MEDS: chlordiazePOXIDE HCL 25 MG CAPSULE PO SCH (23:17)
[2019-08-12] MEDS ORDERED: DEXTROSE 5%-WATER - 50 ML IVPB ONE ×2 (01:11→10:33)
[2019-08-12] MEDS ORDERED: PIPERACILLIN/TAZOBACTAM 3.375 GM VIAL IVPB ONE ×2 (01:11→10:33)
[2019-08-12] MEDS: SODIUM CHLORIDE 1,000 ML IV SCH ×2 (01:19→12:42)
[2019-08-12] MEDS: PIPERACILLIN/TAZOB 3.375 GM 3.375 GM in DEXTROSE 5%-WATER - 50 ML IVPB SCH ×2 (01:19→10:38)
[2019-08-12 02:35] VITALS: BMI 27.3
[2019-08-12] MEDS: chlordiazePOXIDE HCL 25 MG CAPSULE PO SCH ×2 (05:49→14:04)
[2019-08-12] MEDS ORDERED: VANCOMYCIN 1 GRAM (PRE-DOCKED) 1,000 MG/250 ML BAG IVPB SCH (06:30)
--- NOTE | 2019-08-12 09:58 | PN ---
Teaching Attending Note Name of Resident: Francine Hurtado ATTENDING PHYSICIAN STATEMENT I saw and evaluated the patient. I reviewed the resident's note and discussed the case with the resident. I agree with the resident's findings and plan as documented. SUBJECTIVE: Patient wants methadone, otherwise has no new complains. OBJECTIVE: Vital Signs Temperature 97.8 F 08/12/19 06:00 Pulse Rate 78 08/12/19 06:00 Respiratory Rate 20 08/12/19 06:00 Blood Pressure 145/86 08/12/19 06:00 O2 Sat by Pulse Oximetry (%) 95 08/11/19 23:18 Initial Vital Signs Temp Pulse Resp BP Pulse Ox 101.5 F H 92 H 18 142/79 98 08/11/19 15:58 08/11/19 15:58 08/11/19 15:58 08/11/19 15:58 08/11/19 15:58 PE: per resident's note bl cellulitis of upper arms, positive for tracking wolff. CBCD WBC 7.7 K/mm3 (4.0-10.0) 08/11/19 17:17 RBC 4.51 M/mm3 (4.00-5.60) 08/11/19 17:17 Hgb 13.7 GM/dL (11.7-16.9) 08/11/19 17:17 Hct 41.6 % (35.4-49) 08/11/19 17:17 MCV 92.2 fl (80-96) 08/11/19 17:17 MCHC 33.0 g/dl (32.0-35.9) 08/11/19 17:17 RDW 13.6 % (11.9-15.9) 08/11/19 17:17 Plt Count TNP 08/11/19 17:17 MPV 8.6 fl (7.5-11.1) D 08/11/19 17:17 CMP Sodium 132 mmol/L (136-145) L 08/11/19 17:17 Potassium 4.6 mmol/L (3.5-5.1) 08/11/19 17:17 Chloride 100 mmol/L (98-107) 08/11/19 17:17 Carbon Dioxide 26 mmol/L (21-32) 08/11/19 17:17 Anion Gap 5 MMOL/L (8-16) L 08/11/19 17:17 BUN 10.7 mg/dL (7-18) 08/11/19 17:17 Creatinine 0.8 mg/dL (0.55-1.3) 08/11/19 17:17 Random Glucose 95 mg/dL (74-106) 08/11/19 17:17 Calcium 9.0 mg/dL (8.5-10.1) 08/11/19 17:17 Total Bilirubin 0.7 mg/dL (0.2-1) 08/11/19 17:17 AST 121 U/L (15-37) H 08/11/19 17:17 ALT 79 U/L (13-61) H 08/11/19 17:17 Alkaline Phosphatase 214 U/L (45-117) H 08/11/19 17:17 Total Protein 8.6 g/dl (6.4-8.2) H 08/11/19 17:17 Albumin 3.1 g/dl (3.4-5.0) L 08/11/19 17:17 CARDIAC ENZYMES Creatine Kinase 75 U/L (26-308) 08/11/19 17:17 Troponin I < 0.02 ng/ml (0.00-0.05) 08/11/19 17:17 Troponin I Cancelled 08/11/19 17:17 Current Medications Generic Name Dose Route Start Last Admin Trade Name Freq PRN Reason Stop Dose Admin Acetaminophen 650 mg 08/11/19 19:59 Tylenol - PO Q6H PRN FEVER Chlordiazepoxide HCl 50 mg 08/11/19 23:00 08/12/19 05:49 Librium - PO 08/12/19 23:01 50 mg [id number] WILMAR Administration Chlordiazepoxide HCl 25 mg 08/13/19 05:00 Librium - PO 08/13/19 23:01 [id number] WILMAR Chlordiazepoxide HCl 25 mg 08/11/19 20:02 Librium - PO 08/13/19 23:59 Q4H PRN WITHDRAWAL(CONT SUBST) Chlordiazepoxide HCl 10 mg 08/14/19 05:00 Librium - PO 08/14/19 23:01 [id number] WILMAR Chlordiazepoxide HCl 10 mg 08/15/19 05:00 Librium - PO 07/06/20 17:01 Q12H WILMAR Chlordiazepoxide HCl 10 mg 08/14/19 00:00 Librium - PO 08/15/19 00:00 Q4H PRN WITHDRAWAL(CONT SUBST) Chlordiazepoxide HCl 10 mg 08/16/19 05:00 Librium - PO 08/16/19 05:01 ONCE@0500 ONE Heparin Sodium (Porcine) 5,000 unit 08/11/19 22:00 08/11/19 23:17 Heparin - SQ 5,000 unit BID WILMAR Administration Sodium Chloride 1,000 mls @ 75 mls/hr 08/11/19 19:45 08/12/19 01:19 Normal Saline - IV 75 mls/hr ASDIR WILMAR Administration Vancomycin HCl 1,000 mg in 250 mls @ 166.667 mls/hr 08/13/19 06:30 Vancomycin (Pre-Docked) IVPB Q12H WILMAR Protocol Piperacillin Sod/Tazobactam 50 mls @ 100 mls/hr 08/13/19 02:00 Sod 3.375 gm/ Dextrose IVPB Q8H-IV WILMAR Protocol Piperacillin Sod/Tazobactam 50 mls @ 100 mls/hr 08/12/19 02:00 08/12/19 01:19 Sod 3.375 gm/ Dextrose IVPB 08/12/19 18:29 100 mls/hr Q8H-IV WILMAR Administration Protocol Vancomycin HCl 1,000 mg in 250 mls @ 166.667 mls/hr 08/12/19 06:30 08/12/19 05:49 Vancomycin (Pre-Docked) IVPB 08/12/19 19:59 166.667 mls/hr Q12H WILMAR Administration Protocol Nicotine 21 mg 08/11/19 18:45 08/11/19 20:05 Nicoderm Patch - TD 21 mg DAILY WILMAR Administration Home Medications Medication Instructions Recorded Naloxone HCl [Narcan] 4 mg NS ASDIR PRN #1 spray 01/16/19 ASSESSMENT AND PLAN: This patient is a 64yom with PMhx of polysubstance abuse (heroin, etoh and tobacco user) last drink 08/09, liver cirrhosis (87), HepC (not treated), COPD admitted for having bl cellulitis with fever. #B/L arm cellulitis : on Vanco and zosyn, ID consulted, spaulding cxs #Acute hyponatremia: check electrolytes , IVF #Polysubstance dependency(heroin, alcohol) : detox consult #COPD: stable #ETOH dependency on librium protocol #Heroine depednency: detox consulted dr Candace Jenkins #Hep C-not treated #Elevated LFTs-trend Full Code
[2019-08-12] MEDS: NICOTINE 21 MG/24 HOURS TOPICAL PATCH TD SCH (10:37)
[2019-08-12] MEDS: HEPARIN NA (PORCINE) 5,000 UNITS/ML 1ML VIAL SQ SCH (10:37)
--- NOTE | 2019-08-12 10:46 | EKG ---
Test Reason : Blood Pressure : / mmHG Vent. Rate : 092 BPM Atrial Rate : 092 BPM P-R Int : 174 ms QRS Dur : 080 ms QT Int : 352 ms P-R-T Axes : 070 060 057 degrees QTc Int : 435 ms NORMAL SINUS RHYTHM POSSIBLE LEFT ATRIAL ENLARGEMENT WHEN COMPARED WITH ECG OF 14-JAN-2019 21:43, NO SIGNIFICANT CHANGE WAS FOUND Confirmed by LEORA VELAZCO MD ([id number]) on 08/12/2019 10:46:38 AM Referred By: Confirmed By:LEORA VELAZCO MD
[2019-08-12 10:52] VITALS: BP 138/91; PULSE 71; TEMP 98
[2019-08-12] MEDS ORDERED: LORazepam 2 MG TABLET PO SCH (11:00)
[2019-08-12] MEDS ORDERED: LORazepam 1 MG TABLET PO PRN (12:46)
[2019-08-12] MEDS ORDERED: LORazepam 1 MG TABLET PO SCH (13:08)
--- NOTE | 2019-08-12 14:31 | CONSULT ---
Consult Detox [facility] Reason for Current Admission/Consult: Hx of opioid and alcohol use disorder Referred by:: Francine Hurtado - History History of Present Illness: 64 yo man with a hx of alcohol and heroin use He came to [facility] yesterday and was found to be febrile and transferred to [facility]. He has successfully completed detox twice in the past year: Jan and Sep 2018 He is now admitted for tx of upper extremity cellulitis Pt asking for methadone. Was placed on an Ativan protocol upon admission to [facility] Substnace use hx Heroin Substance amount: 4-5 bags Frequency of use: Daily Substance route: Injection (ex: intravenous or skin popping) Date of Last Use: 08/10/19 Alcohol Substance amount: 2-3 beers Frequency of use: Daily Substance route: Oral Date of Last Use: 08/10/19 Active Medications Generic Name Dose Route Start Last Admin Trade Name Freq PRN Reason Stop Dose Admin Acetaminophen 650 mg 08/11/19 19:59 Tylenol - PO Q6H PRN FEVER Heparin Sodium (Porcine) 5,000 unit 08/11/19 22:00 08/12/19 10:37 Heparin - SQ 5,000 unit BID WILMAR Administration Sodium Chloride 1,000 mls @ 75 mls/hr 08/11/19 19:45 08/12/19 12:42 Normal Saline - IV 75 mls/hr ASDIR WILMAR Administration Vancomycin HCl 1,000 mg in 250 mls @ 166.667 mls/hr 08/13/19 06:30 Vancomycin (Pre-Docked) IVPB Q12H WILMAR Protocol Piperacillin Sod/Tazobactam 50 mls @ 100 mls/hr 08/13/19 02:00 Sod 3.375 gm/ Dextrose IVPB Q8H-IV WILMAR Protocol Piperacillin Sod/Tazobactam 50 mls @ 100 mls/hr 08/12/19 02:00 08/12/19 10:38 Sod 3.375 gm/ Dextrose IVPB 08/12/19 18:29 100 mls/hr Q8H-IV WILMAR Administration Protocol Vancomycin HCl 1,000 mg in 250 mls @ 166.667 mls/hr 08/12/19 06:30 08/12/19 05:49 Vancomycin (Pre-Docked) IVPB 08/12/19 19:59 166.667 mls/hr Q12H WILMAR Administration Protocol Lorazepam 1 mg 08/14/19 05:00 Ativan - PO 08/14/19 23:01 0500,1100,1700,2300 WILMAR Lorazepam 1 mg 08/12/19 12:46 Ativan - PO 08/14/19 23:59 Q4H PRN Symptoms of Withdrawal Lorazepam 0.5 mg 08/15/19 05:00 Ativan - PO 08/15/19 23:01 Q6H WILMAR Lorazepam 0.5 mg 08/15/19 00:00 Ativan - PO 08/16/19 00:00 Q4H PRN Symptoms of Withdrawal Lorazepam 0.5 mg 08/16/19 05:00 Ativan - PO 08/16/19 05:01 ONCE ONE Lorazepam 2 mg 08/12/19 13:08 Ativan - PO 08/13/19 23:01 0500,1100,1700,2300 WILMAR Nicotine 21 mg 08/11/19 18:45 08/12/19 10:37 Nicoderm Patch - TD 21 mg DAILY WILMAR Administration Laboratory Tests 08/11/19 08/11/19 08/11/19 16:35 17:00 17:17 WBC RBC Hgb Hct MCV MCH MCHC RDW Plt Count MPV Absolute Neuts (auto) Neutrophils % Lymphocytes % Monocytes % Eosinophils % Basophils % Nucleated RBC % Platelet Estimate Platelet Comment PT with INR 13.90 H INR 1.18 H PTT (Actin FS) 36.9 H Sodium Potassium Chloride Carbon Dioxide Anion Gap BUN Creatinine Est GFR (CKD-EPI)AfAm Est GFR (CKD-EPI)NonAf Random Glucose Lactic Acid 1.5 Calcium Total Bilirubin AST ALT Alkaline Phosphatase Creatine Kinase Troponin I Total Protein Albumin Urine Color Yellow Urine Appearance Clear Urine pH 5.5 Ur Specific Steele 1.019 Urine Protein Negative Urine Glucose (UA) Negative Urine Ketones Negative Urine Blood Negative Urine Nitrite Negative Urine Bilirubin Negative Urine Urobilinogen 1.0 Ur Leukocyte Esterase Negative 08/11/19 08/11/19 08/11/19 17:17 17:17 17:17 WBC 7.7 RBC 4.51 Hgb 13.7 Hct 41.6 MCV 92.2 MCH 30.5 MCHC 33.0 RDW 13.6 Plt Count TNP MPV 8.6 D Absolute Neuts (auto) 5.7 Neutrophils % 74.3 Lymphocytes % 12.9 Monocytes % 10.8 H Eosinophils % 1.1 Basophils % 0.9 Nucleated RBC % 0 Platelet Estimate Decreased Platelet Comment Mod plt clumping PT with INR INR PTT (Actin FS) Sodium 132 L Potassium 4.6 Chloride 100 Carbon Dioxide 26 Anion Gap 5 L BUN 10.7 Creatinine 0.8 Est GFR (CKD-EPI)AfAm 110.96 Est GFR (CKD-EPI)NonAf 95.74 Random Glucose 95 Lactic Acid Calcium 9.0 Total Bilirubin 0.7 AST 121 H ALT 79 H Alkaline Phosphatase 214 H Creatine Kinase 75 Troponin I Cancelled < 0.02 Total Protein 8.6 H Albumin 3.1 L Urine Color Urine Appearance Urine pH Ur Specific Steele Urine Protein Urine Glucose (UA) Urine Ketones Urine Blood Urine Nitrite Urine Bilirubin Urine Urobilinogen Ur Leukocyte Esterase Vital Signs - 24 hr 08/11/19 08/11/19 08/11/19 15:58 16:20 16:40 Temperature 101.5 F H 100.5 F H Pulse Rate 92 H Pulse Rate [ 86 Radial] Respiratory 18 20 22 H Rate Blood Pressure 142/79 Blood Pressure 154/89 [Left Arm] O2 Sat by Pulse 98 98 Oximetry (%) 08/11/19 08/11/19 08/11/19 16:50 16:53 18:20 Temperature 99.8 F H Pulse Rate Pulse Rate [ 84 Radial] Respiratory 20 Rate Blood Pressure Blood Pressure 124/75 [Left Arm] O2 Sat by Pulse 98 96 Oximetry (%) 08/11/19 08/11/19 08/11/19 19:41 20:57 23:17 Temperature 98.1 F Pulse Rate 77 Pulse Rate [ 81 79 Radial] Respiratory 20 20 20 Rate Blood Pressure 108/76 Blood Pressure 110/68 128/80 [Left Arm] O2 Sat by Pulse 95 97 95 Oximetry (%) 08/11/19 08/12/19 08/12/19 23:18 06:00 10:51 Temperature 97.8 F 98 F Pulse Rate 78 71 Pulse Rate [ Radial] Respiratory 20 20 Rate Blood Pressure 145/86 138/91 Blood Pressure [Left Arm] O2 Sat by Pulse 95 Oximetry (%) - History Source History Provided By: Medical Record - Alcohol/Substance Use Hx Alcohol Use: Yes Hx Substance Use: Yes Assessment Plan - Diagnosis (1) Alcohol dependence with uncomplicated withdrawal Status: Acute (2) Opioid dependence with withdrawal Status: Acute - Medication Detox Regimen/Protocol: Methadone
[2019-08-12] MEDS ORDERED: cloNIDine HCL 0.1 MG TABLET PO PRN (14:34)
[2019-08-12] MEDS ORDERED: METHADONE HCL 10 MG TABLET (FOR DETOX USE ONLY) PO ONE (14:34)
--- NOTE | 2019-08-12 18:13 | DS ---
Physical Exam: SUBJECTIVE: Patient seen and examined at bedside. pt was agitated and states that he doesnt feel sick and that he only wants methadone. OBJECTIVE: Vital Signs Period Temp Pulse Resp BP Sys/[place] Pulse Ox Last 24 Hr 97.8 F-98.1 F 71-84 20-20 108-145/68-91 95-97 PHYSICAL EXAM GENERAL: The patient is awake, alert, and fully oriented, in no acute distress. HEAD: Normal with no signs of trauma. EYES: PERRL, extraocular movements intact, sclera anicteric, conjunctiva clear. LUNGS: Breath sounds equal, clear to auscultation bilaterally, no wheezes, no crackles, no accessory muscle use. HEART: Regular rate and rhythm, S1, S2 ABDOMEN: Soft, nontender, nondistended, normoactive bowel sounds, no guarding B/L UE edema and increased warmth. trackmarks and scabbing noted on B/L UE COWS 3 LABS Laboratory Results - last 24 hr 08/11/19 08/11/19 08/11/19 17:00 17:17 17:17 Plt Count TNP Platelet Estimate Decreased Platelet Comment Mod plt clumping Sodium 132 L Potassium 4.6 Chloride 100 Carbon Dioxide 26 Anion Gap 5 L BUN 10.7 Creatinine 0.8 Est GFR (CKD-EPI)AfAm 110.96 Est GFR (CKD-EPI)NonAf 95.74 Random Glucose 95 Lactic Acid 1.5 Calcium 9.0 Total Bilirubin 0.7 AST 121 H ALT 79 H Alkaline Phosphatase 214 H Creatine Kinase 75 Troponin I < 0.02 Total Protein 8.6 H Albumin 3.1 L HOSPITAL COURSE: Date of Admission:08/11/19 Pt was admitted to hospital for b/l UE cellulitis. pt was started on vanc and zosyn. pt was also started on ativan protocol ( elevated LFTs) for alcohol withdrawal. Addiction medicine was consulted. pt left AMA . Date of Discharge: 08/12/19 Minutes to complete discharge: 38 Discharge Summary Problems reviewed: Yes Reason For Visit: CELLULITIS SEPSIS Condition: Improved - Instructions Disposition: AGAINST MEDICAL ADVICE - Home Medications Comprehensive Discharge Medication List: Ambulatory Orders Naloxone HCl [Narcan] 4 mg NS ASDIR PRN #1 spray 01/16/19 This patient is new to me today: Yes Date on this admission: 08/12/19 Emergency Visit: No Critical Care patient: No - Discharge Referral Referred to [facility] Med [facility] No ATTENDING PHYSICIAN STATEMENT I saw and evaluated the patient. I reviewed the resident's note and discussed the case with the resident. I agree with the resident's findings and plan as documented. SUBJECTIVE: OBJECTIVE: ASSESSMENT AND PLAN:
[2019-08-13] MEDS ORDERED: PIPERACILLIN/TAZOB 3.375 GM 3.375 GM in DEXTROSE 5%-WATER - 50 ML IVPB SCH (02:00)
[2019-08-13] MEDS ORDERED: chlordiazePOXIDE HCL 25 MG CAPSULE PO SCH (05:00)
[2019-08-13] MEDS ORDERED: VANCOMYCIN 1 GRAM (PRE-DOCKED) 1,000 MG/250 ML BAG IVPB SCH (06:30)
[2019-08-13] MEDS ORDERED: METHADONE HCL 5 MG TABLET (FOR DETOX USE ONLY) PO ONE (10:00)
[2019-08-14] MEDS ORDERED: chlordiazePOXIDE HCL 10 MG CAPSULE PO PRN
[2019-08-14] MEDS ORDERED: LORazepam 1 MG TABLET PO SCH (05:00)
[2019-08-14] MEDS ORDERED: chlordiazePOXIDE HCL 10 MG CAPSULE PO SCH (05:00)
[2019-08-14] MEDS ORDERED: METHADONE HCL 10 MG TABLET (FOR DETOX USE ONLY) PO ONE (10:00)
[2019-08-15] MEDS ORDERED: LORazepam 0.5 MG TABLET PO PRN
[2019-08-15] MEDS ORDERED: chlordiazePOXIDE HCL 10 MG CAPSULE PO SCH (05:00)
[2019-08-15] MEDS ORDERED: LORazepam 0.5 MG TABLET PO SCH (05:00)
[2019-08-15] MEDS ORDERED: METHADONE HCL 5 MG TABLET (FOR DETOX USE ONLY) PO ONE (06:00)
[2019-08-16] MEDS ORDERED: LORazepam 0.5 MG TABLET PO ONE (05:00)
[2019-08-16] MEDS ORDERED: chlordiazePOXIDE HCL 10 MG CAPSULE PO ONE (05:00)
== END 2019-08-12 14:55 | disposition left against medical advice (07) | DRG 720 ==
LOC: JER 15:39 → JERBED 19:41 → J5S 08-12 00:26
PROVIDERS: ADMIT Internal Medicine; ATTEND Internal Medicine
DX: A41.9 Sepsis, unspecified organism (principal); L03.114 Cellulitis of left upper limb; L03.113 Cellulitis of right upper limb; E87.1 Hypo-osmolality and hyponatremia; F10.230 Alcohol dependence with withdrawal, uncomplicated; F11.23 Opioid dependence with withdrawal; J44.9 Chronic obstructive pulmonary disease, unspecified; B19.20 Unspecified viral hepatitis C without hepatic coma; F17.210 Nicotine dependence, cigarettes, uncomplicated; K74.60 Unspecified cirrhosis of liver; R79.89 Other specified abnormal findings of blood chemistry
CPT/HCPCS: 36415; 71045-TC-FY; 80053; 81003; 82550; 83605; 84484; 85025; 85610; 85730; 87040; 87086; 93005; 93010; 99285-25; J0131; J1644; U0003